=== PATIENT | male | born 1980 | race Caucasian/White ===

== ENCOUNTER 2018-07-25 14:08 | Inpatient (IN) | payer MEDICAID ==
[2018-07-25] MEDS ORDERED: SODIUM CHLORIDE 0.9% 500 ML 500 ML IV STA (14:41)
--- NOTE | 2018-07-25 14:47 | ED ---
General Adult HPI - General Source: patient, RN notes reviewed Mode of arrival: ambulatory Limitations: no limitations <Rafa Bass - Last Filed: 07/25/18 17:21> <Rafa Bingham - Last Filed: 07/25/18 19:56> - General Chief complaint: Chest Pain Stated complaint: Chest and back pain, SOB Time Seen by Provider: 07/25/18 14:10 - History of Present Illness Initial comments: This is a 38 her old male presents emergency Department complaining that he has been having chest pain however he points to the epigastric area. Patient states the pain is also in his back at about the kidney level bilaterally. Patient states when he lays her still does not have any pain but when he turns or twists the pain starts. Patient states his been ongoing for about a week but it's been worse since last evening. Patient denies any shortness of breath or diaphoretic episodes. Patient states for the last month he's been vomiting about 2 times every other day. Patient denies any diarrhea. Patient states he' s to be a little bit of a drinker but not to have a. Patient states she's quit for a while now. Patient states the last month she's lost 20 pounds 10 of which she lost the last week. Patient denies any fever chills per patient denies any medical problems. Patient denies smoking. (Rafa Bass) - Related Data Home Medications Medication Instructions Recorded Confirmed No Known Home Medications 07/25/18 07/25/18 Allergies Allergy/AdvReac Type Severity Reaction Status Date / Time Penicillins Allergy Rash/Hives Verified 07/25/18 15:00 Review of Systems ROS Other: All systems not noted in ROS Statement are negative. <Rafa Bass - Last Filed: 07/25/18 17:21> ROS Other: All systems not noted in ROS Statement are negative. <Rafa Bingham - Last Filed: 07/25/18 19:56> ROS Statement: Those systems with pertinent positive or pertinent negative responses have been documented in the HPI. Past Medical History Past Medical History: No Reported History History of Any Multi-Drug Resistant Organisms: None Reported Past Surgical History: No Surgical Hx Reported Past Psychological History: No Psychological Hx Reported Smoking Status: Never smoker Past Alcohol Use History: None Reported Past Drug Use History: None Reported <Rafa Bass - Last Filed: 07/25/18 17:21> General Exam Limitations: no limitations <Rafa Bass - Last Filed: 07/25/18 17:21> General appearance: alert, in no apparent distress, other (Pale) Head exam: Present: atraumatic, normocephalic, normal inspection Eye exam: Present: normal appearance, PERRL, EOMI. Absent: scleral icterus, conjunctival injection, periorbital swelling ENT exam: Present: normal exam, mucous membranes moist Neck exam: Present: normal inspection. Absent: tenderness, meningismus, lymphadenopathy Respiratory exam: Present: normal lung sounds bilaterally. Absent: respiratory distress, wheezes, rales, rhonchi, stridor Cardiovascular Exam: Present: regular rate, normal rhythm, normal heart sounds. Absent: systolic murmur, diastolic murmur, rubs, gallop, clicks GI/Abdominal exam: Present: soft, normal bowel sounds. Absent: distended, tenderness, guarding, rebound, rigid Extremities exam: Present: normal inspection, full ROM, normal capillary refill. Absent: tenderness, pedal edema, joint swelling, calf tenderness Back exam: Present: normal inspection Neurological exam: Present: alert, oriented X3, CN II-XII intact Psychiatric exam: Present: normal affect, normal mood Skin exam: Present: warm, dry, intact, normal color. Absent: rash <ConorgordonManikathleen Begum - Last Filed: 07/25/18 19:56> - General Exam Comments Initial Comments: GENERAL: Patient is patient looks a little cachectic. Patient is nontoxic and well- hydrated and is in mild distress. ENT: Neck is soft and supple. No significant lymphadenopathy is noted. Oropharynx is clear. Moist mucous membranes. Neck has full range of motion without eliciting any pain. EYES: The sclera were anicteric and conjunctiva were pink and moist. Extraocular movements were intact and pupils were equal round and reactive to light. Eyelids were unremarkable. PULMONARY: Unlabored respirations. Good breath sounds bilaterally. No audible rales rhonchi or wheezing was noted. CARDIOVASCULAR: There is a regular rate and rhythm without any murmurs gallops or rubs. ABDOMEN: Soft and nontender with normal bowel sounds. No palpable organomegaly was noted. There is no palpable pulsatile mass. SKIN: Skin is clear with no lesions or rashes and otherwise unremarkable. NEUROLOGIC: Patient is alert and oriented x3. Cranial nerves II through XII are grossly intact. Motor and sensory are also intact. Normal speech, volume and content. Symmetrical smile. MUSCULOSKELETAL: Normal extremities with adequate strength and full range of motion. No lower extremity swelling or edema. No calf tenderness. LYMPHATICS: No significant lymphadenopathy is noted PSYCHIATRIC: Normal psychiatric evaluation. (Rafa Bass) Course <Rafa Bass - Last Filed: 07/25/18 17:21> <Rafa Bingham - Last Filed: 07/25/18 19:56> Vital Signs 07/25/18 07/25/18 07/25/18 14:12 14:30 15:00 Temperature 98.1 F Pulse Rate 96 92 87 Respiratory 18 Rate Blood Pressure 146/89 140/84 138/76 O2 Sat by Pulse 100 100 100 Oximetry 07/25/18 07/25/18 07/25/18 15:30 16:00 16:30 Temperature Pulse Rate 85 90 86 Respiratory Rate Blood Pressure 124/76 123/77 120/75 O2 Sat by Pulse 100 99 100 Oximetry 07/25/18 07/25/18 07/25/18 17:00 17:30 18:00 Temperature Pulse Rate 91 98 95 Respiratory 18 Rate Blood Pressure 124/83 129/88 133/81 O2 Sat by Pulse 99 Oximetry 07/25/18 07/25/18 19:00 19:30 Temperature Pulse Rate 103 H 103 H Respiratory 15 16 Rate Blood Pressure 124/67 124/57 O2 Sat by Pulse 100 100 Oximetry - Reevaluation(s) Reevaluation #1: 07/25/18 19:55 Spoke with patient and family at length regarding findings, questions answered ( Rafa Bingham) Medical Decision Making - Lab Data Result diagrams: 07/25/18 14:30 07/25/18 14:30 <Rafa Bass - Last Filed: 07/25/18 17:21> - Lab Data Result diagrams: 07/25/18 14:30 07/25/18 14:30 - Radiology Data Radiology results: report reviewed (Ultrasound reveals a bladder is negative, CT abdomen pelvis is negative), image reviewed <Rafa Bingham - Last Filed: 07/25/18 19:56> - Medical Decision Making EKG shows normal sinus rhythm at 91 bpm AK interval 140 QRS is 88 QT interval 422 QTC is 519. Patient's EKG shows no ST segment elevation or depression but extremely peaked T waves. Patient is denying any actual chest pain points to his epigastric area causes chest. I spoke with Dr. Moy about the patient's lab work and he wanted the patient to have a [place] which was already in progress he wanted the patient to get 2 A of bicarb and a bicarb drip with 3 A of bicarbonate and D5 at 150 an hour I did that as well. Patient also was to get an amp of calcium chloride and a CT abdomen pelvis. Dr. Bingham will take over the care of this patient at 5 PM (Rafa Bass) 38 male to the ER for evaluation. Patient be admitted for persistent nephrology evaluation monitoring of electrolytes, fluid resuscitation and electrode replacement. (Rafa Bingham) - Lab Data Lab Results 07/25/18 07/25/18 07/25/18 Range/Units 14:30 14:30 14:30 WBC (3.8-10.6) k/uL RBC (4.30-5.90) m/uL Hgb (13.0-17.5) gm/dL Hct (39.0-53.0) % MCV (80.0-100.0) fL MCH (25.0-35.0) pg MCHC (31.0-37.0) g/dL RDW (11.5-15.5) % Plt Count (150-450) k/uL Neutrophils % % Lymphocytes % % Monocytes % % Eosinophils % % Basophils % % Neutrophils # (1.3-7.7) k/uL Lymphocytes # (1.0-4.8) k/uL Monocytes # (0-1.0) k/uL Eosinophils # (0-0.7) k/uL Basophils # (0-0.2) k/uL PT (9.0-12.0) sec INR (<1.2) APTT (22.0-30.0) sec VBG pH (7.31-7.41) VBG pCO2 (37-51) mmHg VBG HCO3 (24-28) mmol/L Sodium 138 (137-145) mmol/L Potassium 3.7 3.7 (3.5-5.1) mmol/L Chloride 102 (98-107) mmol/L Carbon Dioxide 7 L* (22-30) mmol/L Anion Gap 29 mmol/L BUN 163 H* (9-20) mg/dL Creatinine 23.65 H* (0.66-1.25) mg/dL Est GFR (CKD-EPI)AfAm 2 (>60 ml/min/1.73 sqM) Est GFR (CKD-EPI)NonAf 2 (>60 ml/min/1.73 sqM) Glucose 188 H (74-99) mg/dL Plasma Lactic Acid Sai (0.7-2.0) mmol/L Calcium 4.1 L* (8.4-10.2) mg/dL Ionized Calcium Hans (4.5-5.3) mg/dL Phosphorus (2.5-4.5) mg/dL Magnesium (1.6-2.3) mg/dL Total Bilirubin 0.8 (0.2-1.3) mg/dL AST 20 (17-59) U/L ALT 24 (21-72) U/L Alkaline Phosphatase 100 (38-126) U/L Ammonia (<30) umol/L Total Creatine Kinase 1245 H* (55-170) U/L CK-MB (CK-2) 5.6 H (0.0-2.4) ng/mL CK-MB (CK-2) Rel Index 0.4 Troponin I <0.012 (0.000-0.034) ng/mL Total Protein 7.3 (6.3-8.2) g/dL Albumin 4.1 (3.5-5.0) g/dL Amylase 82 (30-110) U/L Lipase 414 H (23-300) U/L TSH (0.465-4.680) mIU/L Free T4 (0.78-2.19) ng/dL Urine Color Urine Appearance (Clear) Urine pH (5.0-8.0) Ur Specific [place] (1.001-1.035) Urine Protein (Negative) Urine Glucose (UA) (Negative) Urine Ketones (Negative) Urine Blood (Negative) Urine Nitrite (Negative) Urine Bilirubin (Negative) Urine Urobilinogen (<2.0) mg/dL Ur Leukocyte Esterase (Negative) Urine RBC (0-5) /hpf Urine WBC (0-5) /hpf Amorphous Sediment (None) /hpf Urine Opiates Screen (NotDetected) Ur Oxycodone Screen (NotDetected) Urine Methadone Screen (NotDetected) Ur Propoxyphene Screen (NotDetected) Acetaminophen ug/mL Ur Barbiturates Screen (NotDetected) U Tricyclic Antidepress (NotDetected) Ur Phencyclidine Scrn (NotDetected) Ur Amphetamines Screen (NotDetected) U Methamphetamines Scrn (NotDetected) U Benzodiazepines Scrn (NotDetected) Urine Cocaine Screen (NotDetected) U Marijuana (THC) Screen (NotDetected) 07/25/18 07/25/18 07/25/18 Range/Units 14:30 14:30 14:30 WBC 10.9 H (3.8-10.6) k/uL RBC 2.37 L (4.30-5.90) m/uL Hgb 7.4 L (13.0-17.5) gm/dL Hct 22.1 L (39.0-53.0) % MCV 93.4 (80.0-100.0) fL MCH 31.4 (25.0-35.0) pg MCHC 33.6 (31.0-37.0) g/dL RDW 14.6 (11.5-15.5) % Plt Count 209 (150-450) k/uL Neutrophils % 90 % Lymphocytes % 4 % Monocytes % 5 % Eosinophils % 0 % Basophils % 0 % Neutrophils # 9.8 H (1.3-7.7) k/uL Lymphocytes # 0.5 L (1.0-4.8) k/uL Monocytes # 0.5 (0-1.0) k/uL Eosinophils # 0.0 (0-0.7) k/uL Basophils # 0.0 (0-0.2) k/uL PT 12.0 (9.0-12.0) sec INR 1.2 H (<1.2) APTT 31.7 H (22.0-30.0) sec VBG pH (7.31-7.41) VBG pCO2 (37-51) mmHg VBG HCO3 (24-28) mmol/L Sodium (137-145) mmol/L Potassium (3.5-5.1) mmol/L Chloride (98-107) mmol/L Carbon Dioxide (22-30) mmol/L Anion Gap mmol/L BUN (9-20) mg/dL Creatinine (0.66-1.25) mg/dL Est GFR (CKD-EPI)AfAm (>60 ml/min/1.73 sqM) Est GFR (CKD-EPI)NonAf (>60 ml/min/1.73 sqM) Glucose (74-99) mg/dL Plasma Lactic Acid Sai 1.0 (0.7-2.0) mmol/L Calcium (8.4-10.2) mg/dL Ionized Calcium Hans (4.5-5.3) mg/dL Phosphorus (2.5-4.5) mg/dL Magnesium (1.6-2.3) mg/dL Total Bilirubin (0.2-1.3) mg/dL AST (17-59) U/L ALT (21-72) U/L Alkaline Phosphatase (38-126) U/L Ammonia (<30) umol/L Total Creatine Kinase (55-170) U/L CK-MB (CK-2) (0.0-2.4) ng/mL CK-MB (CK-2) Rel Index Troponin I (0.000-0.034) ng/mL Total Protein (6.3-8.2) g/dL Albumin (3.5-5.0) g/dL Amylase (30-110) U/L Lipase (23-300) U/L TSH (0.465-4.680) mIU/L Free T4 (0.78-2.19) ng/dL Urine Color Urine Appearance (Clear) Urine pH (5.0-8.0) Ur Specific [place] (1.001-1.035) Urine Protein (Negative) Urine Glucose (UA) (Negative) Urine Ketones (Negative) Urine Blood (Negative) Urine Nitrite (Negative) Urine Bilirubin (Negative) Urine Urobilinogen (<2.0) mg/dL Ur Leukocyte Esterase (Negative) Urine RBC (0-5) /hpf Urine WBC (0-5) /hpf Amorphous Sediment (None) /hpf Urine Opiates Screen (NotDetected) Ur Oxycodone Screen (NotDetected) Urine Methadone Screen (NotDetected) Ur Propoxyphene Screen (NotDetected) Acetaminophen ug/mL Ur Barbiturates Screen (NotDetected) U Tricyclic Antidepress (NotDetected) Ur Phencyclidine Scrn (NotDetected) Ur Amphetamines Screen (NotDetected) U Methamphetamines Scrn (NotDetected) U Benzodiazepines Scrn (NotDetected) Urine Cocaine Screen (NotDetected) U Marijuana (THC) Screen (NotDetected) 07/25/18 07/25/18 07/25/18 Range/Units 17:19 17:59 17:59 WBC (3.8-10.6) k/uL RBC (4.30-5.90) m/uL Hgb (13.0-17.5) gm/dL Hct (39.0-53.0) % MCV (80.0-100.0) fL MCH (25.0-35.0) pg MCHC (31.0-37.0) g/dL RDW (11.5-15.5) % Plt Count (150-450) k/uL Neutrophils % % Lymphocytes % % Monocytes % % Eosinophils % % Basophils % % Neutrophils # (1.3-7.7) k/uL Lymphocytes # (1.0-4.8) k/uL Monocytes # (0-1.0) k/uL Eosinophils # (0-0.7) k/uL Basophils # (0-0.2) k/uL PT (9.0-12.0) sec INR (<1.2) APTT (22.0-30.0) sec VBG pH 7.12 L* (7.31-7.41) VBG pCO2 20 L (37-51) mmHg VBG HCO3 6 L* (24-28) mmol/L Sodium (137-145) mmol/L Potassium (3.5-5.1) mmol/L Chloride (98-107) mmol/L Carbon Dioxide (22-30) mmol/L Anion Gap mmol/L BUN (9-20) mg/dL Creatinine (0.66-1.25) mg/dL Est GFR (CKD-EPI)AfAm (>60 ml/min/1.73 sqM) Est GFR (CKD-EPI)NonAf (>60 ml/min/1.73 sqM) Glucose (74-99) mg/dL Plasma Lactic Acid Sai (0.7-2.0) mmol/L Calcium (8.4-10.2) mg/dL Ionized Calcium Hans 2.3 L* (4.5-5.3) mg/dL Phosphorus 15.4 H* (2.5-4.5) mg/dL Magnesium 1.4 L (1.6-2.3) mg/dL Total Bilirubin (0.2-1.3) mg/dL AST (17-59) U/L ALT (21-72) U/L Alkaline Phosphatase (38-126) U/L Ammonia (<30) umol/L Total Creatine Kinase (55-170) U/L CK-MB (CK-2) (0.0-2.4) ng/mL CK-MB (CK-2) Rel Index Troponin I (0.000-0.034) ng/mL Total Protein (6.3-8.2) g/dL Albumin (3.5-5.0) g/dL Amylase (30-110) U/L Lipase (23-300) U/L TSH 0.188 L (0.465-4.680) mIU/L Free T4 1.11 (0.78-2.19) ng/dL Urine Color Light Yellow Urine Appearance Cloudy (Clear) Urine pH 5.5 (5.0-8.0) Ur Specific [place] 1.007 (1.001-1.035) Urine Protein 2+ H (Negative) Urine Glucose (UA) Negative (Negative) Urine Ketones Negative (Negative) Urine Blood Moderate H (Negative) Urine Nitrite Negative (Negative) Urine Bilirubin Negative (Negative) Urine Urobilinogen <2.0 (<2.0) mg/dL Ur Leukocyte Esterase Negative (Negative) Urine RBC 3 (0-5) /hpf Urine WBC 2 (0-5) /hpf Amorphous Sediment Occasional H (None) /hpf Urine Opiates Screen (NotDetected) Ur Oxycodone Screen (NotDetected) Urine Methadone Screen (NotDetected) Ur Propoxyphene Screen (NotDetected) Acetaminophen <10.0 ug/mL Ur Barbiturates Screen (NotDetected) U Tricyclic Antidepress (NotDetected) Ur Phencyclidine Scrn (NotDetected) Ur Amphetamines Screen (NotDetected) U Methamphetamines Scrn (NotDetected) U Benzodiazepines Scrn (NotDetected) Urine Cocaine Screen (NotDetected) U Marijuana (THC) Screen (NotDetected) 07/25/18 07/25/18 Range/Units 17:59 18:00 WBC (3.8-10.6) k/uL RBC (4.30-5.90) m/uL Hgb (13.0-17.5) gm/dL Hct (39.0-53.0) % MCV (80.0-100.0) fL MCH (25.0-35.0) pg MCHC (31.0-37.0) g/dL RDW (11.5-15.5) % Plt Count (150-450) k/uL Neutrophils % % Lymphocytes % % Monocytes % % Eosinophils % % Basophils % % Neutrophils # (1.3-7.7) k/uL Lymphocytes # (1.0-4.8) k/uL Monocytes # (0-1.0) k/uL Eosinophils # (0-0.7) k/uL Basophils # (0-0.2) k/uL PT (9.0-12.0) sec INR (<1.2) APTT (22.0-30.0) sec VBG pH (7.31-7.41) VBG pCO2 (37-51) mmHg VBG HCO3 (24-28) mmol/L Sodium (137-145) mmol/L Potassium (3.5-5.1) mmol/L Chloride (98-107) mmol/L Carbon Dioxide (22-30) mmol/L Anion Gap mmol/L BUN (9-20) mg/dL Creatinine (0.66-1.25) mg/dL Est GFR (CKD-EPI)AfAm (>60 ml/min/1.73 sqM) Est GFR (CKD-EPI)NonAf (>60 ml/min/1.73 sqM) Glucose (74-99) mg/dL Plasma Lactic Acid Sai (0.7-2.0) mmol/L Calcium (8.4-10.2) mg/dL Ionized Calcium Hans (4.5-5.3) mg/dL Phosphorus (2.5-4.5) mg/dL Magnesium (1.6-2.3) mg/dL Total Bilirubin (0.2-1.3) mg/dL AST (17-59) U/L ALT (21-72) U/L Alkaline Phosphatase (38-126) U/L Ammonia 11 (<30) umol/L Total Creatine Kinase (55-170) U/L CK-MB (CK-2) (0.0-2.4) ng/mL CK-MB (CK-2) Rel Index Troponin I (0.000-0.034) ng/mL Total Protein (6.3-8.2) g/dL Albumin (3.5-5.0) g/dL Amylase (30-110) U/L Lipase (23-300) U/L TSH (0.465-4.680) mIU/L Free T4 (0.78-2.19) ng/dL Urine Color Urine Appearance (Clear) Urine pH (5.0-8.0) Ur Specific [place] (1.001-1.035) Urine Protein (Negative) Urine Glucose (UA) (Negative) Urine Ketones (Negative) Urine Blood (Negative) Urine Nitrite (Negative) Urine Bilirubin (Negative) Urine Urobilinogen (<2.0) mg/dL Ur Leukocyte Esterase (Negative) Urine RBC (0-5) /hpf Urine WBC (0-5) /hpf Amorphous Sediment (None) /hpf Urine Opiates Screen Not Detected (NotDetected) Ur Oxycodone Screen Not Detected (NotDetected) Urine Methadone Screen Not Detected (NotDetected) Ur Propoxyphene Screen Not Detected (NotDetected) Acetaminophen ug/mL Ur Barbiturates Screen Not Detected (NotDetected) U Tricyclic Antidepress Not Detected (NotDetected) Ur Phencyclidine Scrn Not Detected (NotDetected) Ur Amphetamines Screen Not Detected (NotDetected) U Methamphetamines Scrn Not Detected (NotDetected) U Benzodiazepines Scrn Not Detected (NotDetected) Urine Cocaine Screen Not Detected (NotDetected) U Marijuana (THC) Screen Not Detected (NotDetected) Critical Care Time Critical Care Time: Yes Total Critical Care Time: 45 <Rafa Bass - Last Filed: 07/25/18 17:21> Disposition <Rafa Bass - Last Filed: 07/25/18 17:21> Is patient prescribed a controlled substance at d/c from ED?: No <Rafa Bingham - Last Filed: 07/25/18 19:56> Clinical Impression: Anemia, Acute renal failure, Hypocalcemia, Uremia, Metabolic acidosis, Hyperphosphatemia, Lactic acidosis, Rhabdomyolysis Disposition: ADMITTED IP TO THIS HOSP Condition: Serious Referrals: None,Stated [Primary Care Provider] - 1-2 days
--- NOTE | 2018-07-25 16:21 | XR ---
EXAMINATION TYPE: XR chest 2V DATE OF EXAM: 07/25/2018 COMPARISON: NONE HISTORY: Abdominal pain, nausea and vomiting and shortness of breath TECHNIQUE: Frontal and lateral views of the chest are obtained. FINDINGS: There is no focal air space opacity, pleural effusion, or pneumothorax seen. The cardiac silhouette size is within normal limits. The osseous structures are intact. Prominent lung volumes are noted. There are overlying cardiac leads. IMPRESSION: No acute cardiopulmonary process.
--- NOTE | 2018-07-25 16:22 | XR ---
EXAMINATION TYPE: XR KUB DATE OF EXAM: 07/25/2018 CLINICAL DATA: 38-year-old male with abdominal pain, [facility] COMPARISON: None FINDINGS: No evidence for free intraperitoneal air. No dilated small bowel or air-fluid levels. Scattered air and stool seen throughout the colon extendi ng distally into the rectum. Scattered mild stool. No suspicious calcifications identified. IMPRESSION: 1. Mild stool burden. 2.No evidence of bowel obstruction or free intraperitoneal air.
[2018-07-25 16:23] LABS: Basophils % (A) 0 %; Eosinophils % (A) 0 %; HCT 22.1 % (39.0-53.0); HGB 7.4 gm/dL (13.0-17.5); Lymphocytes # (A) 0.5 k/uL (1.0-4.8); Lymphocytes % (A) 4 %; MCH 31.4 pg (25.0-35.0); MCHC 33.6 g/dL (31.0-37.0); MCV 93.4 fL (80.0-100.0); Mean Platelet Volume 9.1; Monocytes # (A) 0.5 k/uL (0-1.0); Monocytes % (A) 5 %; Neutrophils # (A) 9.8 k/uL (1.3-7.7); Neutrophils % (A) 90 %; Platelet Count 209 k/uL (150-450); RBC 2.37 m/uL (4.30-5.90); RDW 14.6 % (11.5-15.5); WBC 10.9 k/uL (3.8-10.6)
[2018-07-25 16:29] LABS: Albumin 4.1 g/dL (3.5-5.0); Potassium 3.7 mmol/L (3.5-5.1); Total Bilirubin 0.8 mg/dL (0.2-1.3); Total Protein 7.3 g/dL (6.3-8.2)
[2018-07-25 16:43] LABS: Creatine Kinase MB 5.6 ng/mL (0.0-2.4); Troponin I <0.012 ng/mL (0.000-0.034)
[2018-07-25 16:50] LABS: Calcium 4.1 mg/dL (8.4-10.2); Creatine Kinase 1245 U/L (55-170)
[2018-07-25 17:00] LABS: INR 1.2 (<1.2); Partial Thromboplastin Time 31.7 sec (22.0-30.0)
[2018-07-25] MEDS ORDERED: SODIUM CHLORIDE 0.9% 1,000 ML IV ONE (17:12)
[2018-07-25] MEDS ORDERED: SODIUM BICARB 8.4% 50 ML SYR (1 MEQ/ML) IV ONE (17:12)
[2018-07-25] MEDS ORDERED: SODIUM CHLORIDE 0.9% 500 ML 500 ML IV ONE (17:12)
[2018-07-25] MEDS ORDERED: CALCIUM CHLORIDE 1,000 MG in SODIUM CHLORIDE 0.9% 100 ML IVPB STA (17:13)
[2018-07-25 17:50] LABS: Amorphous Sediment,Urine Occasional /hpf; Appearance,Urine Cloudy (Clear); Bilirubin,Urine Negative (Negative); Blood,Urine Moderate (Negative); Color,Urine Light Yellow; Glucose,Urine (UA) Negative (Negative); Ketones,Urine Negative (Negative); Leukocyte Esterase,Urine Negative (Negative); Nitrite,Urine Negative (Negative); PH, Urine 5.5 (5.0-8.0); Protein,Urine 2+ (Negative); RBC,Urine 3 /hpf (0-5); Specific Gravity,Urine 1.007 (1.001-1.035); Urobilinogen,Urine <2.0 mg/dL (<2.0); WBC,Urine 2 /hpf (0-5)
[2018-07-25 18:17] LABS: VBG PH 7.12 (7.31-7.41)
[2018-07-25 18:18] LABS: Ionized Calcium 2.3 mg/dL (4.5-5.3)
[2018-07-25 18:22] LABS: Amphetamine Screen,Urine Not Detected (NotDetected); Barbiturate Screen,Urine Not Detected (NotDetected); Benzodiazepines Screen,Urine Not Detected (NotDetected); Cocaine Screen,Urine Not Detected (NotDetected); Methadone Screen, Urine Not Detected (NotDetected); Opiate Screen,Urine Not Detected (NotDetected); Oxycodone Screen, Urine Not Detected (NotDetected); Phencyclidine Screen,Urine Not Detected (NotDetected); Tricyclic Antidepressant,Urine Not Detected (NotDetected); Urn Cannabinoid Scrn Not Detected (NotDetected)
--- NOTE | 2018-07-25 18:41 | US ---
EXAMINATION TYPE: US renals and bladder DATE OF EXAM: 07/25/2018 COMPARISON: NONE CLINICAL HISTORY: Pain. Acute renal failure. EXAM MEASUREMENTS: Right Kidney: 6.6 x 2.8 x 1.9 cm Left Kidney: 5.5 x 3.3 x 2.5 cm Right Kidney: Atrophic borders not well defined. Diffusely hyperechoic renal parenchyma noted. Left Kidney: Limited visualization atrophic borders not well defined. Diffusely hyperechoic renal par enchyma. Bladder: Catheter in place. Bilateral Jets seen: No There is no evidence for hydronephrosis at this point in time. No nephrolithiasis is seen. No patricia s are identified. IMPRESSION: 1. Negative for obstructive uropathy. 2. Medical renal disease.
[2018-07-25 18:43] LABS: Acetaminophen <10.0 ug/mL; Magnesium 1.4 mg/dL (1.6-2.3)
[2018-07-25 18:52] LABS: Phosphorus 15.4 mg/dL (2.5-4.5)
--- NOTE | 2018-07-25 19:21 | CT ---
EXAMINATION TYPE: CT abdomen pelvis wo con DATE OF EXAM: 07/25/2018 COMPARISON: None HISTORY: Chest, back and abdominal pain with nausea and vomiting with diaphoresis. CT DLP: 262.6 mGycm Automated exposure control for dose reduction was used. TECHNIQUE: Helical acquisition of images was performed from the lung bases through the pelvis. FINDINGS: Within the limitations of noncontrast CT the following observations are made. LUNG BASES: No significant abnormality is appreciated. LIVER/GB: No significant liver abnormality is appreciated. Mild gallbladder distention noted; no othe r biliary findings. PANCREAS: No significant abnormality is seen. SPLEEN: No significant abnormality is seen. ADRENALS: No significant abnormality is seen. KIDNEYS: The kidneys are atrophic. FREE AIR: No free air is visualized. There is no peritoneal fluid. RETROPERITONEAL ADENOPATHY: None visualized REPRODUCTIVE ORGANS: No significant abnormality is seen URINARY BLADDER: No significant abnormality is seen.: Catheter noted. PELVIC ADENOPATHY: None visualized. OSSEOUS STRUCTURES: No significant abnormality is seen. BOWEL: No acute findings. Specifically, the stomach is not dilated; there is no bowel obstruction; no pneumatosis or pneumoperitoneum; no excessive colonic stool. IMPRESSION: NO ACUTE PROCESS, CT WITHOUT CONTRAST.
[2018-07-25 19:49] LABS: T4, Free (Free Thyroxine) 1.11 ng/dL (0.78-2.19)
[2018-07-25] MEDS ORDERED: NALOXONE 0.4 MG/ML 1 ML VIAL IV PRN (19:56)
[2018-07-25] MEDS ORDERED: MORPHINE SULFATE 4 MG/ML SYRINGE IV PRN (19:56)
[2018-07-25] MEDS: DEXTROSE 5% IN WATER 1,000 ML with SODIUM BICARB (1 MEQ/ML) 150 ML IV SCH (20:15)
[2018-07-25 21:19] LABS: Glucose,Whole Blood 112 mg/dL (75-99)
[2018-07-25 23:05] LABS: Basophils % (A) 0 %; Eosinophils % (A) 1 %; Lymphocytes # (A) 0.4 k/uL (1.0-4.8); Lymphocytes % (A) 5 %; MCH 32.3 pg (25.0-35.0); MCHC 34.6 g/dL (31.0-37.0); MCV 93.5 fL (80.0-100.0); Mean Platelet Volume 8.6; Monocytes # (A) 0.5 k/uL (0-1.0); Monocytes % (A) 6 %; Neutrophils # (A) 7.1 k/uL (1.3-7.7); Neutrophils % (A) 88 %; Platelet Count 178 k/uL (150-450); RBC 1.77 m/uL (4.30-5.90); RDW 14.3 % (11.5-15.5); WBC 8.1 k/uL (3.8-10.6)
[2018-07-25 23:08] LABS: HCT 16.6 % (39.0-53.0); HGB 5.7 gm/dL (13.0-17.5)
[2018-07-25 23:16] LABS: Hemoglobin A1C 5.4 % (4.0-6.0)
[2018-07-25 23:22] LABS: ALT 17 U/L (21-72); AST 17 U/L (17-59); Albumin 3.4 g/dL (3.5-5.0); Alkaline Phosphatase 76 U/L (38-126); Anion Gap 25 mmol/L; Carbon Dioxide 10 mmol/L (22-30); Chloride 107 mmol/L (98-107); Glucose 119 mg/dL (74-99); Magnesium 1.2 mg/dL (1.6-2.3); Sodium 142 mmol/L (137-145); Total Bilirubin 0.8 mg/dL (0.2-1.3); Total Protein 5.9 g/dL (6.3-8.2)
[2018-07-25 23:28] VITALS: BMI 20.7
[2018-07-25 23:48] LABS: Erythrocyte Sedimentation Rate 83 mm/hr (0-15)
[2018-07-25 23:59] LABS: Potassium 2.7 mmol/L (3.5-5.1)
[2018-07-26] LABS: Blood Urea Nitrogen 155 mg/dL (9-20); Calcium 4.8 mg/dL (8.4-10.2); Phosphorus 12.9 mg/dL (2.5-4.5)
[2018-07-26 00:01] LABS: Salicylate <1.0 mg/dL
[2018-07-26] MEDS ORDERED: POTASSIUM BICARBONATE/CIT AC 20 MEQ TABLET.EFF PO ONE ×6 (00:11→21:29)
[2018-07-26] MEDS: POTASSIUM CHLORIDE 10 MEQ in WATER FOR INJECTION 1 100ML.BAG IVPB SCH ×2 (00:53→02:04)
[2018-07-26] MEDS ORDERED: POTASSIUM CHLORIDE 10 MEQ in WATER FOR INJECTION 1 100ML.BAG IVPB SCH (01:00)
[2018-07-26] MEDS: DEXTROSE 5% IN WATER 1,000 ML with SODIUM BICARB (1 MEQ/ML) 150 ML IV SCH ×3 (04:11→17:02)
[2018-07-26] MEDS ORDERED: CALCIUM GLUCONATE 2,000 MG in SODIUM CHLORIDE 0.9% 100 ML IVPB ONE (07:51)
[2018-07-26 08:00] LABS: Basophils % (A) 0 %; Eosinophils # (A) 0.1 k/uL (0-0.7); Eosinophils % (A) 2 %; HCT 22.9 % (39.0-53.0); Lymphocytes # (A) 0.8 k/uL (1.0-4.8); Lymphocytes % (A) 12 %; MCH 31.1 pg (25.0-35.0); MCHC 34.4 g/dL (31.0-37.0); MCV 90.6 fL (80.0-100.0); Mean Platelet Volume 8.3; Monocytes # (A) 0.4 k/uL (0-1.0); Monocytes % (A) 6 %; Neutrophils # (A) 5.1 k/uL (1.3-7.7); Neutrophils % (A) 78 %; Platelet Count 150 k/uL (150-450); RBC 2.53 m/uL (4.30-5.90); RDW 14.5 % (11.5-15.5); WBC 6.5 k/uL (3.8-10.6)
[2018-07-26 08:01] LABS: Albumin 3.2 g/dL (3.5-5.0); Magnesium 1.2 mg/dL (1.6-2.3); Total Bilirubin 1.1 mg/dL (0.2-1.3); Total Protein 5.6 g/dL (6.3-8.2)
[2018-07-26 08:05] LABS: HGB 7.9 gm/dL (13.0-17.5)
[2018-07-26 08:12] LABS: Potassium 2.7 mmol/L (3.5-5.1)
[2018-07-26 08:14] LABS: Phosphorus 9.5 mg/dL (2.5-4.5)
[2018-07-26] MEDS: MAGNESIUM SULFATE-D5W PMX 1 GM in DEXTROSE/WATER 1 100ML.BAG IVPB SCH ×3 (08:48→10:59)
[2018-07-26] MEDS ORDERED: PANTOPRAZOLE 40 MG/10 ML VIAL IV SCH (09:00)
--- NOTE | 2018-07-26 10:37 | P.NPCON ---
History of Present Illness - Reason for Consult acute renal failure - History of Present Illness Reason for consultation: Acute kidney injury History of present illness: Patient is a 38-year-old male seen in renal consultation for acute kidney injury. Unknown as to what hisannual function is. Patient has not seen a physician in his life. Patient presented to the hospital due to generalized weakness along with poor oral intake. Patient states he's been urinating less over the last few days. On admission his creatinine was 23.65 and was extremely acidotic with bicarb level of 7. Patient did receive 2 L of normal saline bolus and was started on isotonic sodium bicarbonate drip. Creatinine today is 20.51. Patient continues to feel weak. Hemoglobin was 5.7 yesterday for which she received 2 units of blood transfusion. Hemoglobin 7.9 today. Denies any melena or hematochezia. No hematuria or dysuria. Urine output has been about 50 mL an hour. Potassium is low at 2.7 this morning. Magnesium is also low at 1.2. He denies use of NSAIDs. Denies family history of renal disease. No history of diabetes. Renal ultrasound revealed small sized kidneys. No history of hepatitis or HIV. Vital signs are stable. General: The patient appeared well nourished and normally developed. HEENT: Head exam is unremarkable. Neck is without jugular venous distension. LUNGS: Lungs are clear to auscultation and percussion. Breath sounds decreased. HEART: Rate and Rhythm are regular. First and second heart sounds normal. No murmurs, rubs or gallops. ABDOMEN: Abdominal exam reveals normal bowel sounds. Non-tender and non- distended. No evidence of peritonitis. EXTREMITITES: No clubbing, cyanosis, or edema. Past Medical History Past Medical History: No Reported History History of Any Multi-Drug Resistant Organisms: None Reported Past Surgical History: No Surgical Hx Reported Past Anesthesia/Blood Transfusion Reactions: No Reported Reaction Past Psychological History: No Psychological Hx Reported Smoking Status: Never smoker Past Alcohol Use History: None Reported Past Drug Use History: None Reported Medications and Allergies Home Medications Medication Instructions Recorded Confirmed Type No Known Home Medications 07/25/18 07/25/18 History Allergies Allergy/AdvReac Type Severity Reaction Status Date / Time Penicillins Allergy Rash/Hives Verified 07/25/18 15:00 Physical Exam Vitals: Vital Signs Temp Pulse Resp BP Pulse Ox 07/26/18 10:00 80 15 104/57 07/26/18 09:30 84 22 104/57 07/26/18 09:00 72 15 107/60 07/26/18 08:00 98.7 F 103/62 07/26/18 07:30 75 14 103/62 99 07/26/18 07:04 98.9 F 78 18 103/62 98 07/26/18 07:00 75 14 105/61 98 07/26/18 06:30 80 14 108/61 98 07/26/18 06:00 78 13 107/62 99 07/26/18 05:48 98.9 F 81 16 106/63 98 07/26/18 05:30 75 14 110/63 98 07/26/18 05:18 98.8 F 78 14 110/63 100 07/26/18 05:08 98.9 F 81 16 104/62 100 07/26/18 05:00 98.9 F 75 16 105/62 99 07/26/18 04:31 98.8 F 77 16 102/64 100 07/26/18 04:30 75 18 102/64 100 07/26/18 04:00 98.8 F 77 16 105/63 100 07/26/18 03:30 80 15 110/67 99 07/26/18 03:12 98.4 F 92 24 110/67 99 07/26/18 03:00 86 17 102/54 99 07/26/18 02:42 98.3 F 86 18 102/61 98 07/26/18 02:32 98.2 F 82 20 102/56 99 07/26/18 02:30 87 20 106/61 99 07/26/18 02:00 89 22 109/61 99 07/26/18 01:00 89 25 H 95/52 99 07/26/18 00:30 83 16 95/52 97 07/26/18 00:00 98.9 F 77 12 108/61 97 07/25/18 23:30 79 14 108/61 98 07/25/18 23:00 82 16 111/68 98 07/25/18 22:30 82 15 111/68 98 07/25/18 22:00 82 19 99 07/25/18 21:30 99.1 F 89 24 138/72 99 07/25/18 20:30 97 18 118/69 100 07/25/18 20:00 90 17 125/68 07/25/18 19:30 103 H 16 124/57 100 07/25/18 19:00 103 H 15 124/67 100 07/25/18 18:00 95 133/81 07/25/18 17:30 98 129/88 07/25/18 17:00 91 18 124/83 99 07/25/18 16:30 86 120/75 100 07/25/18 16:00 90 123/77 99 07/25/18 15:30 85 124/76 100 07/25/18 15:00 87 138/76 100 07/25/18 14:30 92 140/84 100 07/25/18 14:12 98.1 F 96 18 146/89 100 Intake and Output 07/25/18 07/26/18 07/26/18 22:59 06:59 14:59 Intake Total 285 2450 460 Output Total 1075 350 Balance -790 2100 460 Intake: IV 105 2020 150 Dextrose 5% in Water 1, 105 1200 150 000 ml @ 150 mls/hr IV . Q7H40M CALE with Sodium Bicarb (1 Meq/ml) 150 ml Rx#:[id number] PRBC 620 Potassium Chloride 10 meq 200 In Water For Injection 1 100ml.bag @ 100 mls/hr IVPB Q1H CALE Rx#: [id number] Oral 180 120 Blood Product 310 310 Rc As-1 Unit 310 [id number] Rc Cpda-1 Unit 0 310 [id number] Output: Urine 1075 350 Uretheral (Montemayor) 400 Other: Voiding Method Indwelling Catheter Indwelling Catheter Weight 51.5 kg Results - Lab Results Most recent lab results Calcium 4.0 mg/dL (8.4-10.2) L* 07/26/18 07:30 Phosphorus 9.5 mg/dL (2.5-4.5) H* 07/26/18 07:30 Magnesium 1.2 mg/dL (1.6-2.3) L 07/26/18 07:30 07/26/18 07:30 07/26/18 07:30 Assessment and Plan Plan: Assessment: 1. Acute kidney injury versus chronic kidney disease. Unknown baseline renal function. Creatinine was 23.6 at admission and is 20.5 and today. This is most likely end-stage renal disease as patient's kidneys are extremely small in size. Underlying etiology is likely to be glomerulonephritis as he does have 2 + proteinuria on UA. 2. Hypokalemia secondary to hypomagnesemia. 3. Hypomagnesemia from poor oral intake. 4. Acute blood loss anemia with hemoglobin of 5.7 status post 2 units of blood transfusion. Hemoglobin 7.9 today. No signs of active bleeding. 5. Metabolic acidosis secondary to acute kidney injury. 6. Hypocalcemia secondary to acute kidney injury. 7. Hyperparathyroidism. This is likely secondary in nature from underlying chronic kidney disease. 8. Hyperphosphatemia secondary to acute kidney injury. Plan: Maintain bicarb drip for the next 24 hours. Replace potassium. 60 mg once today. Replace magnesium. 3 g IV today. Add Aranesp. Due to severe renal impairment and signs of uremia, I will initiate renal replacement therapy. Consults vascular surgery for permacath placement. First treatment of hemodialysis today and second treatment tomorrow. Check serologic workup. Patient will not be a candidate for kidney biopsy due to small size kidneys. Patient will be at a high risk for bleeding complications. Additionally, due to significant chronicity he will not be a candidate for treatment with chemotherapy and immunosuppressive medications. 2 g of IV calcium today. Add calcitriol 1 g daily. Add PhosLo with meals. Thank you for the consultation. I will continue to follow the patient with you during his hospital stay.
[2018-07-26] MEDS ORDERED: POTASSIUM CHLORIDE 10 MEQ in WATER FOR INJECTION 1 100ML.BAG IVPB STA (10:44)
[2018-07-26] MEDS ORDERED: DARBEPOETIN ALFA 40 MCG/0.4 ML SYRINGE SQ SCH (11:00)
--- NOTE | 2018-07-26 11:39 | P.CNPUL ---
History of Present Illness Consult date: 07/26/18 Requesting physician: Jamir Wooten Chief complaint: Acute kidney injury, nausea and vomiting, profound anemia History of present illness: This is a 38-year-old white male patient who has not seen a physician in a long time, and does not have any medical history, presents to the emergency department on 07/25/2018 for evaluation of nonspecific abdominal pain, back pain on the right side, nausea and vomiting, weakness. He states his symptoms started about a week ago, prior to that he had upper respiratory infection which had resolved. He denies any diarrhea. Patient states he lost 40 pounds in the last month, 10 of which was in the last week. He denied any fever or chills, no chest pain, difficulty breathing, no cough or congestion. No history of smoking, or drinking. No history of drug abuse. His spouse is at the bedside, and reports that her and her young daughter had them GI symptoms about 3 weeks ago with nausea, vomiting and diarrhea lasting about 24 hours which had resolved. Flat plate of the abdomen did not show any evidence of bowel obstruction or free intraperitoneal air, chest x-ray was negative, the CT abdomen and pelvis did not show any acute process. Renal ultrasound was negative for obstructive uropathy, showed atrophic right kidney. Lab work was significant for multiple abnormalities including profound anemia with a hemoglobin of 5.7, potassium of 2.7, CO2 of 10, BUN of 155, creatinine of 22.05 , calcium of 4.8, phosphorus of 12.9, magnesium of 1.2, total CK of 1245, lipase of 414, amylase was within normal limits at 82, TSH was 0.188, free T4 was within normal limits at 1.11, PTH was 1028.7. Urinalysis showed 2+ protein , moderate blood, negative for signs of infection, urine osmolality was 282, random potassium was 11, urine specific gravity was 1.007. Urine drug screen was negative, salicylate level was less than 1, acetaminophen level was less than 10. Venous blood gas showed pH of 7.12, pCO2 of 20, and bicarb of 6, consistent with profound metabolic acidosis. Patient was given IV fluid boluses in the emergency department, he was given bicarb replacements, and currently his D5W with 3 A of bicarbonate at a rate of 150 ML per hour, his calcium is being supplemented, and patient has received 3 g of calcium gluconate , and multiple replacements for hypokalemia. She received a total of 3 L of normal saline IV fluid boluses. He was admitted to the intensive care unit, and has received 2 units of packed red blood cells. Patient denied any signs of GI bleeding at home, no hematemesis, no black tarry stools, no hematochezia. He denied any NSAID use, no recent travel, no hospitalization, no antibiotic use. He denied any polyuria, denied any polydipsia. This morning she was seen in the intensive care unit, he is resting comfortably in bed, he is pale but in no acute distress. Room air pulse ox is 99%, he is hemodynamically stable, he is in sinus mechanism with a controlled rate, he is afebrile. His is at the bedside, and was able to provide some information, patient has been trying to get established with a primary care provider, and has recently been accepted by Dr. Apple, but has not seen him in the office. Denies any shortness of breath or chest pain. No abdominal pain this morning, no back pain, patient is urinating, he did have one episode of diarrhea this morning, no further nausea or vomiting. Currently he remains nothing by mouth, case was discussed with nephrology, who felt that patient probably had underlying chronic kidney disease was undetected with sudden acute worsening. And the plans are to proceed with the temporary hemodialysis catheter placement and initiation of hemodialysis. Review of Systems All systems: negative Constitutional: Reports lethargy, Reports weakness, Reports weight loss, Denies chills, Denies fever Eyes: denies blurred vision, denies pain Ears, nose, mouth and throat: Denies headache, Denies sore throat Cardiovascular: Denies chest pain, Denies shortness of breath Respiratory: Denies cough Gastrointestinal: Reports nausea, Reports vomiting, Denies abdominal pain, Denies diarrhea Musculoskeletal: Denies myalgias Integumentary: Denies pruritus, Denies rash Neurological: Denies numbness, Denies weakness Psychiatric: Denies anxiety, Denies depression Endocrine: Denies fatigue, Denies weight change Past Medical History Past Medical History: No Reported History History of Any Multi-Drug Resistant Organisms: None Reported Past Surgical History: No Surgical Hx Reported Past Anesthesia/Blood Transfusion Reactions: No Reported Reaction Past Psychological History: No Psychological Hx Reported Smoking Status: Never smoker Past Alcohol Use History: None Reported Past Drug Use History: None Reported Medications and Allergies Home Medications Medication Instructions Recorded Confirmed Type No Known Home Medications 07/25/18 07/25/18 History Allergies Allergy/AdvReac Type Severity Reaction Status Date / Time Penicillins Allergy Rash/Hives Verified 07/25/18 15:00 Physical Exam Vitals: Vital Signs Temp Pulse Resp BP Pulse Ox 07/26/18 11:00 80 11 L 110/65 99 07/26/18 10:30 82 14 110/65 07/26/18 10:00 80 15 104/57 07/26/18 09:30 84 22 104/57 07/26/18 09:00 72 15 107/60 07/26/18 08:00 98.7 F 103/62 07/26/18 07:30 75 14 103/62 99 07/26/18 07:04 98.9 F 78 18 103/62 98 07/26/18 07:00 75 14 105/61 98 07/26/18 06:30 80 14 108/61 98 07/26/18 06:00 78 13 107/62 99 07/26/18 05:48 98.9 F 81 16 106/63 98 07/26/18 05:30 75 14 110/63 98 07/26/18 05:18 98.8 F 78 14 110/63 100 07/26/18 05:08 98.9 F 81 16 104/62 100 07/26/18 05:00 98.9 F 75 16 105/62 99 07/26/18 04:31 98.8 F 77 16 102/64 100 07/26/18 04:30 75 18 102/64 100 07/26/18 04:00 98.8 F 77 16 105/63 100 07/26/18 03:30 80 15 110/67 99 07/26/18 03:12 98.4 F 92 24 110/67 99 07/26/18 03:00 86 17 102/54 99 07/26/18 02:42 98.3 F 86 18 102/61 98 07/26/18 02:32 98.2 F 82 20 102/56 99 07/26/18 02:30 87 20 106/61 99 07/26/18 02:00 89 22 109/61 99 07/26/18 01:00 89 25 H 95/52 99 07/26/18 00:30 83 16 95/52 97 07/26/18 00:00 98.9 F 77 12 108/61 97 07/25/18 23:30 79 14 108/61 98 07/25/18 23:00 82 16 111/68 98 07/25/18 22:30 82 15 111/68 98 07/25/18 22:00 82 19 99 07/25/18 21:30 99.1 F 89 24 138/72 99 07/25/18 20:30 97 18 118/69 100 07/25/18 20:00 90 17 125/68 07/25/18 19:30 103 H 16 124/57 100 07/25/18 19:00 103 H 15 124/67 100 07/25/18 18:00 95 133/81 07/25/18 17:30 98 129/88 07/25/18 17:00 91 18 124/83 99 07/25/18 16:30 86 120/75 100 07/25/18 16:00 90 123/77 99 07/25/18 15:30 85 124/76 100 07/25/18 15:00 87 138/76 100 07/25/18 14:30 92 140/84 100 07/25/18 14:12 98.1 F 96 18 146/89 100 Intake and Output 07/25/18 07/26/18 07/26/18 22:59 06:59 14:59 Intake Total 285 2450 1510 Output Total 1075 350 400 Balance -790 2100 1110 Intake: IV 105 2020 1050 Dextrose 5% in Water 1, 105 1200 650 000 ml @ 150 mls/hr IV . Q7H40M CALE with Sodium Bicarb (1 Meq/ml) 150 ml Rx#:[id number] Mag 300 PRBC 620 Potassium Chloride 10 meq 200 100 In Water For Injection 1 100ml.bag @ 100 mls/hr IVPB Q1H CALE Rx#: [id number] Oral 180 120 150 Blood Product 310 310 Rc As-1 Unit 310 [id number] Rc Cpda-1 Unit 0 310 [id number] Output: Urine 1075 350 400 Uretheral ([place]emayor) 400 Other: Voiding Method Indwelling Catheter Indwelling Catheter Weight 51.5 kg GENERAL EXAM: Alert, thin, 38-year-old pale white male comfortable in no apparent distress. HEAD: Normocephalic/atraumatic. EYES: Normal reaction of pupils, equal size. Conjunctiva pink, sclera white. NOSE: Clear with pink turbinates. THROAT: No erythema or exudates. NECK: No masses, no JVD, no thyroid enlargement, no adenopathy. CHEST: No chest wall deformity. Symmetrical expansion. LUNGS: Equal air entry with no crackles, wheeze, rhonchi or dullness. CVS: Regular rate and rhythm, normal S1 and S2, no gallops, no murmurs, no rubs ABDOMEN: Soft, nontender. No hepatosplenomegaly, normal bowel sounds, no guarding or rigidity. EXTREMITIES: No clubbing, no edema, no cyanosis, 2+ pulses and upper and lower extremities. MUSCULOSKELETAL: Muscle strength and tone normal. SPINE: No scoliosis or deformity SKIN: No rashes CENTRAL NERVOUS SYSTEM: Alert and oriented -3. No focal deficits, tone is normal in all 4 extremities. PSYCHIATRIC: Alert and oriented -3. Appropriate affect. Intact judgment and insight. Results - Laboratory Findings CBC and BMP: 07/26/18 07:30 07/26/18 07:30 PT/INR, D-dimer PT 12.0 sec (9.0-12.0) 07/25/18 14:30 INR 1.2 (<1.2) H 07/25/18 14:30 Abnormal lab findings: Abnormal Labs 07/25/18 07/25/18 07/25/18 14:30 14:30 14:30 WBC 10.9 H RBC 2.37 L Hgb 7.4 L Hct 22.1 L Neutrophils # 9.8 H Lymphocytes # 0.5 L ESR INR APTT VBG pH VBG pCO2 VBG HCO3 Potassium Carbon Dioxide 7 L* BUN 163 H* Creatinine 23.65 H* Glucose 188 H POC Glucose (mg/dL) Osmolality Calcium 4.1 L* Ionized Calcium Hans Phosphorus Magnesium ALT Creatine Kinase Total Creatine Kinase 1245 H* CK-MB (CK-2) 5.6 H Total Protein Albumin Lipase 414 H TSH PTH Intact Urine Protein Urine Blood Amorphous Sediment Crossmatch 07/25/18 07/25/18 07/25/18 14:30 14:30 17:19 WBC RBC Hgb Hct Neutrophils # Lymphocytes # ESR INR 1.2 H APTT 31.7 H VBG pH VBG pCO2 VBG HCO3 Potassium Carbon Dioxide BUN Creatinine Glucose POC Glucose (mg/dL) Osmolality Calcium Ionized Calcium Hans Phosphorus Magnesium ALT Creatine Kinase Total Creatine Kinase CK-MB (CK-2) Total Protein Albumin Lipase TSH PTH Intact Urine Protein 2+ H Urine Blood Moderate H Amorphous Sediment Occasional H Crossmatch See Detail 07/25/18 07/25/18 07/25/18 17:59 17:59 17:59 WBC RBC Hgb Hct Neutrophils # Lymphocytes # ESR INR APTT VBG pH 7.12 L* VBG pCO2 20 L VBG HCO3 6 L* Potassium Carbon Dioxide BUN Creatinine Glucose POC Glucose (mg/dL) Osmolality Calcium Ionized Calcium Hans 2.3 L* Phosphorus 15.4 H* Magnesium 1.4 L ALT Creatine Kinase Total Creatine Kinase CK-MB (CK-2) Total Protein Albumin Lipase TSH 0.188 L PTH Intact 1028.7 H Urine Protein Urine Blood Amorphous Sediment Crossmatch 07/25/18 07/25/18 07/25/18 21:08 22:30 22:30 WBC RBC 1.77 L Hgb 5.7 L* D Hct 16.6 L* Neutrophils # Lymphocytes # 0.4 L ESR 83 H INR APTT VBG pH VBG pCO2 VBG HCO3 Potassium 2.7 L* Carbon Dioxide 10 L BUN 155 H* Creatinine 22.05 H* Glucose 119 H POC Glucose (mg/dL) 112 H Osmolality 338 H* Calcium 4.8 L* Ionized Calcium Hans Phosphorus 12.9 H* Magnesium 1.2 L ALT 17 L Creatine Kinase Total Creatine Kinase CK-MB (CK-2) Total Protein 5.9 L Albumin 3.4 L Lipase TSH PTH Intact Urine Protein Urine Blood Amorphous Sediment Crossmatch 07/26/18 07/26/18 07:30 07:30 WBC RBC 2.53 L Hgb 7.9 L D Hct 22.9 L Neutrophils # Lymphocytes # 0.8 L ESR INR APTT VBG pH VBG pCO2 VBG HCO3 Potassium 2.7 L* Carbon Dioxide 18 L BUN 150 H* Creatinine 20.51 H* Glucose 114 H POC Glucose (mg/dL) Osmolality Calcium 4.0 L* Ionized Calcium Hans Phosphorus 9.5 H* Magnesium 1.2 L ALT Creatine Kinase 920 H Total Creatine Kinase CK-MB (CK-2) Total Protein 5.6 L Albumin 3.2 L Lipase TSH PTH Intact Urine Protein Urine Blood Amorphous Sediment Crossmatch - Diagnostic Findings Chest x-ray: report reviewed, image reviewed Additional studies: Flat plate of the abdomen, CT of abdomen and pelvis, EKG, renal ultrasound chest x-ray have all been reviewed Assessment and Plan Plan: Assessment: #1. Acute kidney injury with suspected underlying chronic kidney disease, with an unknown baseline renal function #2. Multiple electrolyte abnormalities including hypokalemia, hypomagnesemia, hypocalcemia #3. Acute versus chronic anemia, requiring transfusion with 2 units of packed red blood cells, hemoglobin of 5.7 on admission, with no clear history of GI blood loss #4. Metabolic acidosis secondary to acute kidney injury #5. Secondary hyperparathyroidism likely related to chronic kidney disease #6. Hyperphosphatemia #7. Nausea and vomiting, and weakness on presentation #8. Abdominal pain, elevated lipase suggesting acute pancreatitis #9. Lifetime nonsmoker, no history of EtOH use Plan: Case was discussed with nephrology, and the findings were described above. For now patient is hemodynamically stable, he received 2 units of packed red blood cells, there has been no further nausea or vomiting, did have a one episode of diarrhea this morning, will obtain stool for culture and C. diff. And July with bicarb infusion per nephrology, the plan is to proceed with placement of temporary hemodialysis catheter and initiation of hemodialysis. Patient will remain in the intensive care unit today, continue to monitor, denies any difficulty breathing, chest pain, denies any specific complaints this morning. I performed a history & physical examination of the patient and discussed their management with my nurse practitioner, Raven Kim. I reviewed the nurse practitioner's note and agree with the documented findings and plan of care. Lung sounds are clear. The findings and the impression was discussed with the patient. I attest to the documentation by the nurse practitioner. Time with Patient: Greater than 30
[2018-07-26] MEDS ORDERED: POTASSIUM CHLORIDE 10 MEQ in WATER FOR INJECTION 1 100ML.BAG IVPB ONE (12:00)
[2018-07-26 12:49] LABS: Appearance,Urine Cloudy (Clear); Bacteria,Urine Moderate /hpf; Bilirubin,Urine Negative (Negative); Blood,Urine Moderate (Negative); Color,Urine Light Yellow; Glucose,Urine (UA) 1+ (Negative); Ketones,Urine Negative (Negative); Leukocyte Esterase,Urine Large (Negative); Nitrite,Urine Negative (Negative); PH, Urine 6.5 (5.0-8.0); Protein,Urine 1+ (Negative); RBC,Urine 13 /hpf (0-5); Specific Gravity,Urine 1.006 (1.001-1.035); Squamous Epithelial Cell,Urine 1 /hpf (0-4); Urobilinogen,Urine <2.0 mg/dL (<2.0); WBC,Urine >182 /hpf (0-5)
[2018-07-26] MEDS: CALCIUM ACETATE 667 MG CAP PO SCH ×2 (13:04→18:08)
[2018-07-26] MEDS ORDERED: ceFAZolin IN SWFI 2 GM/20 ML SYRINGE IVP ONE (16:00)
--- NOTE | 2018-07-26 16:00 | P.HPIM ---
History of Present Illness H&P Date: 07/26/18 38 years old male who has not been seen by Dr. Apple at this moment with no significant past medical history comes to the ER on 07/25 with nonspecific abdominal pain, back pain, nausea vomiting, generalized fatigue for the past 4 weeks. According to the patient was doing well until he started having some cough and congestion which was initially thought to be a viral infection resolved by itself, he was not seen by any provider since he was a child. He does document significant weight loss of 40 pounds sincefor the past 2 year that wa sintentional with loss of 10 pounds in the past week. Patient was noticing right flank pain for the past year and was seen at urgent care. A chest x-ray was done which did not report any pneumonia. No further workup was done. Patient does not take any Tylenol or ibuprofen at home. He is not on any medication except for vitamin C. On evaluation in the ER, labs suggestive hemoglobin of 5.7, potassium 2.7 carbon dioxide 10, B UN 155 creatinine 22, , glucose 119, serum osmolarity 338, calcium 4.8, phosphorus 12.9 , magnesium 1.2 episodes to 89, urinalysis was obtained that suggested 182 WBCs , positive leukocyte esterase, few normal urine osmolarity of 282, increase in 1477-related acetaminophen levels were normal. Patient received 2 units of packed RBCs and 3 g of calcium, magnesium 3 g supplementation, 100 mEq of potassium, sodium bicarb. Her peak labs suggest improvement in the hemoglobin to 7.9 potassium is still low at 2.7, creatinine is high at 20 , calcium is 4, phosphorus 9.5. EKG suggests peaked T waves with prolongation of QT interval. CT abdomen was done which suggested atrophic kidneys no other abnormality seen on evaluation patient denies any headache at 3 history of kidney problems except for grandfather who had kidney disease at a young age with history of glomerular nephritis. Patient denies any history of hepatitis or HIV. He denies any history of rash except for psoriasic. No history of frothy or cola colored urine. Energy has seen the patient well recommendation on bicarb drip for the next 24 hours. Patient will be initiated on dialysis starting today after placement of the dialysis catheter. Review of Systems Constitutional: Denies chills, Denies fever, endorses lethargy, endorses malaise, Denies poor appetite, endorses weakness, endorses weight loss Eyes: denies decreased vision, denies diplopia, denies discharge, denies pain Ears: deny: decreased hearing Ears, nose, mouth and throat: Denies dental pain, Denies headache, Denies nasal discharge, Denies nose pain Cardiovascular: Denies chest pain, Denies decreased exercise tolerance, Denies edema, Denies high blood pressure, Denies irregular heart beat, Denies palpitations, Denies paroxysmal nocturnal dyspnea, Denies rapid heart beat, Denies shortness of breath Respiratory: Denies congestion, Denies cough, Denies cough with sputum, Denies dyspnea, Denies home oxygen, Denies wheezing Gastrointestinal: Endorses abdominal pain, Denies change in bowel habits, Denies coffee ground emesis, Denies early satiety, Denies excessive gas, endorses heartburn, Denies hematemesis, Denies hematochezia, Denies loss of appetite, endorses biliary vomiting and nausea Genitourinary: Denies dysuria, Denies flank pain, Denies kidney stones, Denies menorrhagia, Denies urgency, Denies urinary frequency Musculoskeletal: Denies gait dysfunction, Denies limitation of motion, Denies morning stiffness, Denies muscle cramps Integumentary: Denies rash, Denies wounds, Denies brittle nails, Denies change in hair/nails, Denies darkening of skin Neurological: Denies balance difficulties, Denies change in speech, Denies double vision, Denies gait dysfunction, Denies loss of vision, Denies motor disturbance, Denies numbness, Denies paralysis, Denies paresthesias, Denies seizures Psychiatric: Denies anxiety, Denies depression Endocrine: Denies excessive sweating, Denies excessive thirst, Denies high blood sugars, Denies palpitations Hematologic/Lymphatic: Denies easy bruising, Denies lymphadenopathy Past Medical History Past Medical History: No Reported History History of Any Multi-Drug Resistant Organisms: None Reported Past Surgical History: No Surgical Hx Reported Past Anesthesia/Blood Transfusion Reactions: No Reported Reaction Past Psychological History: No Psychological Hx Reported Smoking Status: Never smoker Past Alcohol Use History: None Reported Past Drug Use History: None Reported - Past Family History Father Additional Family Medical History / Comment(s): Grandfather had glomerulonephritis and was on dialysis by the age of 35 no other significant past medical history in the family Medications and Allergies Home Medications Medication Instructions Recorded Confirmed Type No Known Home Medications 07/25/18 07/25/18 History Allergies Allergy/AdvReac Type Severity Reaction Status Date / Time Penicillins Allergy Rash/Hives Verified 07/25/18 15:00 Physical Exam Vitals: Vital Signs Temp Pulse Resp BP Pulse Ox 07/26/18 14:00 76 14 113/66 98 07/26/18 13:30 78 15 113/66 98 07/26/18 13:00 84 12 116/71 98 07/26/18 12:30 80 13 116/71 99 07/26/18 12:00 98.0 F 77 11 L 113/70 98 07/26/18 11:30 77 10 L 113/70 99 07/26/18 11:00 80 11 L 110/65 99 07/26/18 10:30 82 14 110/65 07/26/18 10:00 80 15 104/57 07/26/18 09:30 84 22 104/57 07/26/18 09:00 72 15 107/60 07/26/18 08:00 98.7 F 103/62 07/26/18 07:30 75 14 103/62 99 07/26/18 07:04 98.9 F 78 18 103/62 98 07/26/18 07:00 75 14 105/61 98 07/26/18 06:30 80 14 108/61 98 07/26/18 06:00 78 13 107/62 99 07/26/18 05:48 98.9 F 81 16 106/63 98 07/26/18 05:30 75 14 110/63 98 07/26/18 05:18 98.8 F 78 14 110/63 100 07/26/18 05:08 98.9 F 81 16 104/62 100 07/26/18 05:00 98.9 F 75 16 105/62 99 07/26/18 04:31 98.8 F 77 16 102/64 100 07/26/18 04:30 75 18 102/64 100 07/26/18 04:00 98.8 F 77 16 105/63 100 07/26/18 03:30 80 15 110/67 99 07/26/18 03:12 98.4 F 92 24 110/67 99 07/26/18 03:00 86 17 102/54 99 07/26/18 02:42 98.3 F 86 18 102/61 98 07/26/18 02:32 98.2 F 82 20 102/56 99 07/26/18 02:30 87 20 106/61 99 07/26/18 02:00 89 22 109/61 99 07/26/18 01:00 89 25 H 95/52 99 07/26/18 00:30 83 16 95/52 97 07/26/18 00:00 98.9 F 77 12 108/61 97 07/25/18 23:30 79 14 108/61 98 07/25/18 23:00 82 16 111/68 98 07/25/18 22:30 82 15 111/68 98 07/25/18 22:00 82 19 99 07/25/18 21:30 99.1 F 89 24 138/72 99 07/25/18 20:30 97 18 118/69 100 07/25/18 20:00 90 17 125/68 07/25/18 19:30 103 H 16 124/57 100 07/25/18 19:00 103 H 15 124/67 100 07/25/18 18:00 95 133/81 07/25/18 17:30 98 129/88 07/25/18 17:00 91 18 124/83 99 07/25/18 16:30 86 120/75 100 07/25/18 16:00 90 123/77 99 07/25/18 15:30 85 124/76 100 Intake and Output 07/26/18 07/26/18 07/26/18 06:59 14:59 22:59 Intake Total 2450 1810 Output Total 350 550 Balance 2100 1260 Intake: IV 2019 1350 Dextrose 5% in Water 1, 1200 850 000 ml @ 150 mls/hr IV . Q7H40M CALE with Sodium Bicarb (1 Meq/ml) 150 ml Rx#:[id number] Mag 300 PRBC 620 Potassium Chloride 10 meq 200 200 In Water For Injection 1 100ml.bag @ 100 mls/hr IVPB Q1H CALE Rx#: [id number] Oral 120 150 Blood Product 310 310 Rc As-1 Unit 310 [id number] Rc Cpda-1 Unit 0 310 [id number] Output: Urine 350 550 Other: Voiding Method Indwelling Catheter Indwelling Catheter Weight 51.5 kg 51.5 kg - Constitutional General appearance: cooperative, no acute distress, thin - EENT Eyes: anicteric sclerae, PERRLA, normal appearance ENT: hearing grossly normal - Neck Neck: no lymphadenopathy, normal ROM, no other, no rigidity, no stridor, no thyromegaly - Respiratory Respiratory: bilateral: CTA, negative: diminished, dullness, rales, rhonchi - Cardiovascular Rhythm: regular Heart sounds: normal: S1, S2 Abnormal Heart Sounds: no systolic murmur, no diastolic murmur, no rub, no S3 Gallop, no S4 Gallop, no click - Gastrointestinal General gastrointestinal: normal bowel sounds, soft, non tender - Integumentary Integumentary: no rash some acne on the shoulder and elbow but no rashes seen - Neurologic Neurologic: CNII-XII intact - Musculoskeletal Musculoskeletal: gait normal, strength equal bilaterally - Psychiatric Psychiatric: A&O x's 3, appropriate affect Results CBC & Chem 7: 07/26/18 07:30 07/26/18 07:30 Labs: Abnormal Lab Results - Last 24 Hours (Table) 07/25/18 07/25/18 07/25/18 Range/Units 14:30 14:30 14:30 WBC 10.9 H (3.8-10.6) k/uL RBC 2.37 L (4.30-5.90) m/uL Hgb 7.4 L (13.0-17.5) gm/dL Hct 22.1 L (39.0-53.0) % Neutrophils # 9.8 H (1.3-7.7) k/uL Lymphocytes # 0.5 L (1.0-4.8) k/uL ESR (0-15) mm/hr INR (<1.2) APTT (22.0-30.0) sec VBG pH (7.31-7.41) VBG pCO2 (37-51) mmHg VBG HCO3 (24-28) mmol/L Potassium (3.5-5.1) mmol/L Carbon Dioxide 7 L* (22-30) mmol/L BUN 163 H* (9-20) mg/dL Creatinine 23.65 H* (0.66-1.25) mg/dL Glucose 188 H (74-99) mg/dL POC Glucose (mg/dL) (75-99) mg/dL Osmolality (280-301) mosm/kg Calcium 4.1 L* (8.4-10.2) mg/dL Ionized Calcium Hans (4.5-5.3) mg/dL Phosphorus (2.5-4.5) mg/dL Magnesium (1.6-2.3) mg/dL ALT (21-72) U/L Creatine Kinase (55-170) U/L Total Creatine Kinase 1245 H* (55-170) U/L CK-MB (CK-2) 5.6 H (0.0-2.4) ng/mL Total Protein (6.3-8.2) g/dL Albumin (3.5-5.0) g/dL Lipase 414 H (23-300) U/L TSH (0.465-4.680) mIU/L PTH Intact (14.0-72.0) pg/mL Urine Protein (Negative) Urine Glucose (UA) (Negative) Urine Blood (Negative) Ur Leukocyte Esterase (Negative) Urine RBC (0-5) /hpf Urine WBC (0-5) /hpf Urine WBC Clumps (None) /hpf Amorphous Sediment (None) /hpf Urine Bacteria (None) /hpf U Random Total Protein (<12) mg/dL Crossmatch 07/25/18 07/25/18 07/25/18 Range/Units 14:30 14:30 17:19 WBC (3.8-10.6) k/uL RBC (4.30-5.90) m/uL Hgb (13.0-17.5) gm/dL Hct (39.0-53.0) % Neutrophils # (1.3-7.7) k/uL Lymphocytes # (1.0-4.8) k/uL ESR (0-15) mm/hr INR 1.2 H (<1.2) APTT 31.7 H (22.0-30.0) sec VBG pH (7.31-7.41) VBG pCO2 (37-51) mmHg VBG HCO3 (24-28) mmol/L Potassium (3.5-5.1) mmol/L Carbon Dioxide (22-30) mmol/L BUN (9-20) mg/dL Creatinine (0.66-1.25) mg/dL Glucose (74-99) mg/dL POC Glucose (mg/dL) (75-99) mg/dL Osmolality (280-301) mosm/kg Calcium (8.4-10.2) mg/dL Ionized Calcium Hans (4.5-5.3) mg/dL Phosphorus (2.5-4.5) mg/dL Magnesium (1.6-2.3) mg/dL ALT (21-72) U/L Creatine Kinase (55-170) U/L Total Creatine Kinase (55-170) U/L CK-MB (CK-2) (0.0-2.4) ng/mL Total Protein (6.3-8.2) g/dL Albumin (3.5-5.0) g/dL Lipase (23-300) U/L TSH (0.465-4.680) mIU/L PTH Intact (14.0-72.0) pg/mL Urine Protein 2+ H (Negative) Urine Glucose (UA) (Negative) Urine Blood Moderate H (Negative) Ur Leukocyte Esterase (Negative) Urine RBC (0-5) /hpf Urine WBC (0-5) /hpf Urine WBC Clumps (None) /hpf Amorphous Sediment Occasional H (None) /hpf Urine Bacteria (None) /hpf U Random Total Protein (<12) mg/dL Crossmatch See Detail 07/25/18 07/25/18 07/25/18 Range/Units 17:59 17:59 17:59 WBC (3.8-10.6) k/uL RBC (4.30-5.90) m/uL Hgb (13.0-17.5) gm/dL Hct (39.0-53.0) % Neutrophils # (1.3-7.7) k/uL Lymphocytes # (1.0-4.8) k/uL ESR (0-15) mm/hr INR (<1.2) APTT (22.0-30.0) sec VBG pH 7.12 L* (7.31-7.41) VBG pCO2 20 L (37-51) mmHg VBG HCO3 6 L* (24-28) mmol/L Potassium (3.5-5.1) mmol/L Carbon Dioxide (22-30) mmol/L BUN (9-20) mg/dL Creatinine (0.66-1.25) mg/dL Glucose (74-99) mg/dL POC Glucose (mg/dL) (75-99) mg/dL Osmolality (280-301) mosm/kg Calcium (8.4-10.2) mg/dL Ionized Calcium Hans 2.3 L* (4.5-5.3) mg/dL Phosphorus 15.4 H* (2.5-4.5) mg/dL Magnesium 1.4 L (1.6-2.3) mg/dL ALT (21-72) U/L Creatine Kinase (55-170) U/L Total Creatine Kinase (55-170) U/L CK-MB (CK-2) (0.0-2.4) ng/mL Total Protein (6.3-8.2) g/dL Albumin (3.5-5.0) g/dL Lipase (23-300) U/L TSH 0.188 L (0.465-4.680) mIU/L PTH Intact 1028.7 H (14.0-72.0) pg/mL Urine Protein (Negative) Urine Glucose (UA) (Negative) Urine Blood (Negative) Ur Leukocyte Esterase (Negative) Urine RBC (0-5) /hpf Urine WBC (0-5) /hpf Urine WBC Clumps (None) /hpf Amorphous Sediment (None) /hpf Urine Bacteria (None) /hpf U Random Total Protein (<12) mg/dL Crossmatch 07/25/18 07/25/18 07/25/18 Range/Units 21:08 22:30 22:30 WBC (3.8-10.6) k/uL RBC 1.77 L (4.30-5.90) m/uL Hgb 5.7 L* D (13.0-17.5) gm/dL Hct 16.6 L* (39.0-53.0) % Neutrophils # (1.3-7.7) k/uL Lymphocytes # 0.4 L (1.0-4.8) k/uL ESR 83 H (0-15) mm/hr INR (<1.2) APTT (22.0-30.0) sec VBG pH (7.31-7.41) VBG pCO2 (37-51) mmHg VBG HCO3 (24-28) mmol/L Potassium 2.7 L* (3.5-5.1) mmol/L Carbon Dioxide 10 L (22-30) mmol/L BUN 155 H* (9-20) mg/dL Creatinine 22.05 H* (0.66-1.25) mg/dL Glucose 119 H (74-99) mg/dL POC Glucose (mg/dL) 112 H (75-99) mg/dL Osmolality 338 H* (280-301) mosm/kg Calcium 4.8 L* (8.4-10.2) mg/dL Ionized Calcium Hans (4.5-5.3) mg/dL Phosphorus 12.9 H* (2.5-4.5) mg/dL Magnesium 1.2 L (1.6-2.3) mg/dL ALT 17 L (21-72) U/L Creatine Kinase (55-170) U/L Total Creatine Kinase (55-170) U/L CK-MB (CK-2) (0.0-2.4) ng/mL Total Protein 5.9 L (6.3-8.2) g/dL Albumin 3.4 L (3.5-5.0) g/dL Lipase (23-300) U/L TSH (0.465-4.680) mIU/L PTH Intact (14.0-72.0) pg/mL Urine Protein (Negative) Urine Glucose (UA) (Negative) Urine Blood (Negative) Ur Leukocyte Esterase (Negative) Urine RBC (0-5) /hpf Urine WBC (0-5) /hpf Urine WBC Clumps (None) /hpf Amorphous Sediment (None) /hpf Urine Bacteria (None) /hpf U Random Total Protein (<12) mg/dL Crossmatch 07/26/18 07/26/18 07/26/18 Range/Units 07:30 07:30 10:50 WBC (3.8-10.6) k/uL RBC 2.53 L (4.30-5.90) m/uL Hgb 7.9 L D (13.0-17.5) gm/dL Hct 22.9 L (39.0-53.0) % Neutrophils # (1.3-7.7) k/uL Lymphocytes # 0.8 L (1.0-4.8) k/uL ESR (0-15) mm/hr INR (<1.2) APTT (22.0-30.0) sec VBG pH (7.31-7.41) VBG pCO2 (37-51) mmHg VBG HCO3 (24-28) mmol/L Potassium 2.7 L* (3.5-5.1) mmol/L Carbon Dioxide 18 L (22-30) mmol/L BUN 150 H* (9-20) mg/dL Creatinine 20.51 H* (0.66-1.25) mg/dL Glucose 114 H (74-99) mg/dL POC Glucose (mg/dL) (75-99) mg/dL Osmolality (280-301) mosm/kg Calcium 4.0 L* (8.4-10.2) mg/dL Ionized Calcium Hans (4.5-5.3) mg/dL Phosphorus 9.5 H* (2.5-4.5) mg/dL Magnesium 1.2 L (1.6-2.3) mg/dL ALT (21-72) U/L Creatine Kinase 920 H (55-170) U/L Total Creatine Kinase (55-170) U/L CK-MB (CK-2) (0.0-2.4) ng/mL Total Protein 5.6 L (6.3-8.2) g/dL Albumin 3.2 L (3.5-5.0) g/dL Lipase (23-300) U/L TSH (0.465-4.680) mIU/L PTH Intact (14.0-72.0) pg/mL Urine Protein 1+ H (Negative) Urine Glucose (UA) 1+ H (Negative) Urine Blood Moderate H (Negative) Ur Leukocyte Esterase Large H (Negative) Urine RBC 13 H (0-5) /hpf Urine WBC >182 H (0-5) /hpf Urine WBC Clumps Moderate H (None) /hpf Amorphous Sediment (None) /hpf Urine Bacteria Moderate H (None) /hpf U Random Total Protein (<12) mg/dL Crossmatch 07/26/18 Range/Units 10:50 WBC (3.8-10.6) k/uL RBC (4.30-5.90) m/uL Hgb (13.0-17.5) gm/dL Hct (39.0-53.0) % Neutrophils # (1.3-7.7) k/uL Lymphocytes # (1.0-4.8) k/uL ESR (0-15) mm/hr INR (<1.2) APTT (22.0-30.0) sec VBG pH (7.31-7.41) VBG pCO2 (37-51) mmHg VBG HCO3 (24-28) mmol/L Potassium (3.5-5.1) mmol/L Carbon Dioxide (22-30) mmol/L BUN (9-20) mg/dL Creatinine (0.66-1.25) mg/dL Glucose (74-99) mg/dL POC Glucose (mg/dL) (75-99) mg/dL Osmolality (280-301) mosm/kg Calcium (8.4-10.2) mg/dL Ionized Calcium Hans (4.5-5.3) mg/dL Phosphorus (2.5-4.5) mg/dL Magnesium (1.6-2.3) mg/dL ALT (21-72) U/L Creatine Kinase (55-170) U/L Total Creatine Kinase (55-170) U/L CK-MB (CK-2) (0.0-2.4) ng/mL Total Protein (6.3-8.2) g/dL Albumin (3.5-5.0) g/dL Lipase (23-300) U/L TSH (0.465-4.680) mIU/L PTH Intact (14.0-72.0) pg/mL Urine Protein (Negative) Urine Glucose (UA) (Negative) Urine Blood (Negative) Ur Leukocyte Esterase (Negative) Urine RBC (0-5) /hpf Urine WBC (0-5) /hpf Urine WBC Clumps (None) /hpf Amorphous Sediment (None) /hpf Urine Bacteria (None) /hpf U Random Total Protein 87 H (<12) mg/dL Crossmatch Thrombosis Risk Factor Assmnt - DVT/VTE Prophylaxis DVT/VTE Prophylaxis: Low risk, early ambulation encouraged - Choose All That Apply Any of the Below Risk Factors Present?: No Other Risk Factors: No Other congenital or acquired thrombophilia - If yes, enter type in comment: No Thrombosis Risk Factor Assessment Level: Very Low Risk Assessment and Plan Plan: #1 acute abdominal pain secondary to acute worsening of chronic kidney disease. No baseline available. Unknown etiology. Unknown history of hepatitis or HIV. Does have h/o glomerulonephritis in grandfather. We will order connective tissue disease panel included TORRES, C3, C4,c ANCA and P ANCA , hepatitis panel, HIV. Anti GBM antibodies ordered. Biopsy could not be performed due to patient's size of kidneys on the CT abdomen. Patient to initiated dialysis today. No history of frothy urine or hematuria given. Immunofixation and urine protein electrophoresis ordered. Urine protein is low and is not in nephrotic range patient is not swallowing on examination unlikely to be nephrotic syndrome . Patient may have lupus nephritis though renal biopsy could not be done due to atrophic nature of kidneyus on CT . Patient does not provide any history of hematuria or proteinuria. Random protein in the urine is 87 the patient's serum protein is also low, other differential includes Alport syndrome and IgA nephropathy based on patient's age. #2 hypokalemia with EKG changes of QT prolongation. Repeat EKG. 60 mEq of potassium given today. Repeat potassium pending #3 hypomagnesemia, status post repletion #4 anemia likely secondary to chronic kidney disease no acute blood loss. Status post 2 units of PRBCs. Repeat CBC tomorrow #5 hypocalcemia secondary to acute kidney injury status. #6 hyperparathyroidism secondary to chronic kidney disease status. On calcitriol 1 g daily #7 hypophosphatemia on PhosLo with meals repeat labs tomorrow #8 acute metabolic acidosis secondary to acute kidney injury continue bicarb for the next 24 hours #9 DVT prophylaxis with SCDs patient is a low risk #10 code status full code #11 UTI was initiated on cefazolin patient does have a ALLERGY reaction to ampicillin and was less than 2 years ago in the form of hives. Since there is least cross-reactivity between the 2 will monitor the patient on cefazolin Disposition needs daily dialysis until creatinine is stabilized
[2018-07-26] MEDS ORDERED: LIDOCAINE 1% INJ 10MG/ML (20 ML MDV) SQ ONE (16:02)
[2018-07-26] MEDS ORDERED: MIDAZOLAM 2 MG/2 ML VIAL IVP ONE (16:10)
[2018-07-26] MEDS ORDERED: fentaNYL (PF) 50 MCG/ML 2 ML AMP IVP ONE (16:11)
[2018-07-26] MEDS ORDERED: IV FLUID CONTINUATION 1,000 ML IV ONE (16:14)
[2018-07-26 18:20] LABS: Protein, Total 4.8 g/dL (6.2-8.2)
--- NOTE | 2018-07-26 18:49 | XR ---
EXAMINATION: XR chest 1V DATE AND TIME: 07/26/2018 6:03 PM CLINICAL INDICATION: PHH; dialysis cath placement TECHNIQUE: AP portable upright COMPARISON: 07/25/2018 at 4:05 PM FINDINGS: Right IJ catheter tip superimposed over the expected position of the mid/distal SVC. The lungs are clear. The pleural spaces are negative. The cardiac silhouette is not enlarged. The remainder of the mediastinal silhouette is unremarkable. The skeletal structures and soft tissues are negative for acute findings. IMPRESSION: NO ACUTE PROCESS.
[2018-07-26 19:20] LABS: Anti-DNA, DS unit <1.0 IU/mL; DNA Double-Stranded NEGATIVE (NEGATIVE)
--- NOTE | 2018-07-26 20:00 | CONS ---
CONSULTATION This is a 38-year-old gentleman who came with acute kidney injury. Patient has not seen a physician. Patient presented with generalized weakness with poor intake. Patient has a creatinine of 20.51. There is no history of diabetes. Patient had an ultrasound which showed small-sized kidney. On examination, head is unremarkable. NECK: No bruit appreciated. LUNGS: Normal breath sounds. Some decreased breath sounds noted at lung bases. First and second sounds normal. ABDOMEN: Soft. Femoral pulses are present. IMPRESSION: 1. Acute kidney injury. 2. Hypokalemia secondary to hypomagnesemia. 3. Patient also has a hemoglobin of 7.9. PLAN: Placement of dialysis catheter. Risks and complications were discussed, including bleeding, infection, thrombosis. MMODL / IJN: [id number] /
[2018-07-26] MEDS ORDERED: Potassium Replacement Protocol 1 EACH MISC MISCELLANE PRN (20:38)
[2018-07-26] MEDS ORDERED: POTASSIUM CHLORIDE ER 20 MEQ TAB.ER PO SCH (21:00)
[2018-07-26 21:53] LABS: HCT 24.9 % (39.0-53.0); HGB 8.8 gm/dL (13.0-17.5); MCH 31.4 pg (25.0-35.0); MCHC 35.4 g/dL (31.0-37.0); MCV 88.9 fL (80.0-100.0); Platelet Count 171 k/uL (150-450); RDW 14.7 % (11.5-15.5); WBC 7.6 k/uL (3.8-10.6)
[2018-07-26] MEDS: CALCITRIOL 0.25 MCG CAP PO SCH (22:11)
[2018-07-27] MEDS: DEXTROSE 5% IN WATER 1,000 ML with SODIUM BICARB (1 MEQ/ML) 150 ML IV SCH (00:30)
--- NOTE | 2018-07-27 00:39 | PCN ---
PROCEDURE NOTE PREOP DIAGNOSIS: Acute on chronic renal failure. PROCEDURE: Ultrasound-guided 23 cm dilated right IJ catheter. SEDATION: Time is 31 minutes. PROCEDURE: This patient was brought to the warehouse laborer. Right side of the neck and chest was prepped and drapes applied in the usual sterile manner. 1% lidocaine infiltrated. Patient given Versed IV and fentanyl. Ultrasound-guided micropuncture into the right jugular vein. Micropuncture guidewire was passed and a 4-Albanian dilator advanced on the top of the guidewire. After that, a small incision was made to the chest wall and 19 cm dialysis catheter brought to the neck incision area. After that, dilator was advanced on top of the guidewire. Then we advanced the sheath. Through the sheath, we introduced the dialysis catheter. Tip of the catheter introduced into the superior vena cava and atrium. Flushed with heparin saline and hep-locked and secured with 3-0 nylon. Dressing applied. Patient tolerated the procedure well. MMODL / IJN: [id number] /
[2018-07-27 01:25] LABS: Hepatitis A Antibody IgM Non-Reactive (Non-Reactive); Hepatitis B Core IgM Non-Reactive (Non-Reactive)
[2018-07-27 01:53] LABS: Potassium 3.2 mmol/L (3.5-5.1)
[2018-07-27 02:21] LABS: Calcium 5.4 mg/dL (8.4-10.2)
[2018-07-27] MEDS ORDERED: POTASSIUM BICARBONATE/CIT AC 20 MEQ TABLET.EFF PO ONE (02:26)
[2018-07-27 06:26] LABS: HCT 24.4 % (39.0-53.0); HGB 8.5 gm/dL (13.0-17.5); MCH 31.6 pg (25.0-35.0); MCV 90.4 fL (80.0-100.0); Mean Platelet Volume 8.5; Platelet Count 162 k/uL (150-450); RDW 14.9 % (11.5-15.5); WBC 6.7 k/uL (3.8-10.6)
[2018-07-27 06:53] LABS: Magnesium 1.8 mg/dL (1.6-2.3); Phosphorus 5.6 mg/dL (2.5-4.5); Potassium 3.3 mmol/L (3.5-5.1)
[2018-07-27 07:14] LABS: Calcium 4.9 mg/dL (8.4-10.2)
[2018-07-27] MEDS ORDERED: DEXTROSE 5% IN WATER 1,000 ML with SODIUM BICARB (1 MEQ/ML) 150 ML IV SCH (07:15)
[2018-07-27] MEDS ORDERED: POTASSIUM CHLORIDE ER 20 MEQ TAB.ER PO STA (08:14)
--- NOTE | 2018-07-27 08:16 | P.PN ---
Subjective Patient is seen in follow-up for acute kidney injury. Creatinine was 23 on admission and patient had signs of uremia. He was started on hemodialysis and tolerated the first treatment well yesterday. Scheduled for second treatment today. Denies chest pain or shortness of breath. Urine output has been 40 60 mL an hour. Vital signs are stable. General: The patient appeared well nourished and normally developed. HEENT: Head exam is unremarkable. Neck is without jugular venous distension. LUNGS: Lungs are clear to auscultation and percussion. Breath sounds decreased. HEART: Rate and Rhythm are regular. First and second heart sounds normal. No murmurs, rubs or gallops. ABDOMEN: Abdominal exam reveals normal bowel sounds. Non-tender and non- distended. No evidence of peritonitis. EXTREMITITES: No clubbing, cyanosis, or edema. Objective - Vital Signs Vital signs: Vital Signs Temp 98.4 F 07/27/18 03:00 Pulse 77 07/27/18 07:00 Resp 10 L 07/27/18 07:00 BP 108/69 07/27/18 07:00 Pulse Ox 97 07/27/18 07:00 Intake & Output 07/26/18 07/27/18 07/27/18 18:59 06:59 18:59 Intake Total 2410 1100 100 Output Total 1000 656 60 Balance 1410 444 40 Weight 51.5 kg 55.4 kg Intake: IV 1950 1100 100 Dextrose 5% in Water 1, 1450 1100 100 000 ml @ 150 mls/hr IV . Q7H40M CALE with Sodium Bicarb (1 Meq/ml) 150 ml Rx#:[id number] Mag 300 Potassium Chloride 10 meq 200 In Water For Injection 1 100ml.bag @ 100 mls/hr IVPB Q1H CALE Rx#: [id number] Oral 150 Blood Product 310 Rc Cpda-1 Unit 310 [id number] Output: Urine 1000 655 60 Stool 1 Other: Voiding Method Indwelling Catheter Indwelling Catheter - Labs CBC & Chem 7: 07/27/18 05:55 07/27/18 05:55 Labs: Abnormal Lab Results - Last 24 Hours (Table) 07/26/18 07/26/18 07/26/18 Range/Units 07:30 10:48 10:50 RBC (4.30-5.90) m/uL Hgb (13.0-17.5) gm/dL Hct (39.0-53.0) % Sodium (137-145) mmol/L Potassium 2.7 L* (3.5-5.1) mmol/L Chloride (98-107) mmol/L Carbon Dioxide 18 L (22-30) mmol/L BUN 150 H* (9-20) mg/dL Creatinine 20.51 H* (0.66-1.25) mg/dL Glucose 114 H (74-99) mg/dL Calcium 4.0 L* (8.4-10.2) mg/dL Phosphorus 9.5 H* (2.5-4.5) mg/dL Magnesium 1.2 L (1.6-2.3) mg/dL Creatine Kinase 920 H (55-170) U/L Total Protein 5.6 L (6.3-8.2) g/dL Total Protein (PEP) 4.8 L (6.2-8.2) g/dL Albumin 3.2 L (3.5-5.0) g/dL Urine Protein 1+ H (Negative) Urine Glucose (UA) 1+ H (Negative) Urine Blood Moderate H (Negative) Ur Leukocyte Esterase Large H (Negative) Urine RBC 13 H (0-5) /hpf Urine WBC >182 H (0-5) /hpf Urine WBC Clumps Moderate H (None) /hpf Urine Bacteria Moderate H (None) /hpf U Random Total Protein (<12) mg/dL 07/26/18 07/26/18 07/26/18 Range/Units 10:50 19:15 21:20 RBC 2.80 L (4.30-5.90) m/uL Hgb 8.8 L (13.0-17.5) gm/dL Hct 24.9 L (39.0-53.0) % Sodium (137-145) mmol/L Potassium 2.3 L* (3.5-5.1) mmol/L Chloride (98-107) mmol/L Carbon Dioxide (22-30) mmol/L BUN (9-20) mg/dL Creatinine (0.66-1.25) mg/dL Glucose (74-99) mg/dL Calcium (8.4-10.2) mg/dL Phosphorus (2.5-4.5) mg/dL Magnesium (1.6-2.3) mg/dL Creatine Kinase (55-170) U/L Total Protein (6.3-8.2) g/dL Total Protein (PEP) (6.2-8.2) g/dL Albumin (3.5-5.0) g/dL Urine Protein (Negative) Urine Glucose (UA) (Negative) Urine Blood (Negative) Ur Leukocyte Esterase (Negative) Urine RBC (0-5) /hpf Urine WBC (0-5) /hpf Urine WBC Clumps (None) /hpf Urine Bacteria (None) /hpf U Random Total Protein 87 H (<12) mg/dL 07/27/18 07/27/18 07/27/18 Range/Units 00:58 05:55 05:55 RBC 2.70 L (4.30-5.90) m/uL Hgb 8.5 L (13.0-17.5) gm/dL Hct 24.4 L (39.0-53.0) % Sodium 136 L (137-145) mmol/L Potassium 3.2 L 3.3 L (3.5-5.1) mmol/L Chloride 96 L 93 L (98-107) mmol/L Carbon Dioxide (22-30) mmol/L BUN 79 H 80 H (9-20) mg/dL Creatinine 10.88 H* 11.04 H* (0.66-1.25) mg/dL Glucose 128 H 143 H (74-99) mg/dL Calcium 5.4 L* 4.9 L* (8.4-10.2) mg/dL Phosphorus 5.6 H (2.5-4.5) mg/dL Magnesium (1.6-2.3) mg/dL Creatine Kinase (55-170) U/L Total Protein (6.3-8.2) g/dL Total Protein (PEP) (6.2-8.2) g/dL Albumin (3.5-5.0) g/dL Urine Protein (Negative) Urine Glucose (UA) (Negative) Urine Blood (Negative) Ur Leukocyte Esterase (Negative) Urine RBC (0-5) /hpf Urine WBC (0-5) /hpf Urine WBC Clumps (None) /hpf Urine Bacteria (None) /hpf U Random Total Protein (<12) mg/dL Assessment and Plan Plan: Assessment: 1. Acute kidney injury versus chronic kidney disease. Unknown baseline renal function. Creatinine was 23.6 at admission. This is most likely end-stage renal disease as patient's kidneys are extremely small in size. Underlying etiology is likely to be glomerulonephritis as he does have 2+ proteinuria on UA UPC 2.1 g. rest of the serologies negative so far. 2. Hypokalemia secondary to hypomagnesemia. 3. Hypomagnesemia from poor oral intake. Improving with replacement. 4. Acute blood loss anemia with hemoglobin of 5.7 status post 2 units of blood transfusion. Hemoglobin 8.5 today. No signs of active bleeding. Maintained on Aranesp. 5. Metabolic acidosis secondary to acute kidney injury. Improved. 6. Hypocalcemia secondary to acute kidney injury. 7. Hyperparathyroidism. This is likely secondary in nature from underlying chronic kidney disease. 8. Hyperphosphatemia secondary to acute kidney injury. Improving with dialysis. Also on PhosLo. Plan: Discontinue bicarbonate drip. Start normal saline at 75 mL an hour for maintenance fluids. Replace potassium. 40 mEq today. Second treatment of hemodialysis today. Third treatment tomorrow. Follow-up pending serologies. Patient will not be a candidate for kidney biopsy due to small size kidneys. Patient will be at a high risk for bleeding complications. Additionally, due to significant chronicity he will not be a candidate for treatment with chemotherapy and immunosuppressive medications. 2 g of IV calcium today. Continue calcitriol 1 g daily. vaccine manager to help facilitate outpatient hemodialysis.
[2018-07-27] MEDS: CALCITRIOL 0.25 MCG CAP PO SCH (08:33)
[2018-07-27] MEDS: CALCIUM ACETATE 667 MG CAP PO SCH ×3 (08:33→17:24)
[2018-07-27] MEDS ORDERED: ONDANSETRON 4 MG/2 ML VIAL IM STA (08:35)
[2018-07-27] MEDS: SODIUM CHLORIDE 0.9% 1,000 ML IV SCH ×2 (08:36→22:42)
[2018-07-27] MEDS ORDERED: CALCIUM GLUCONATE 2,000 MG in SODIUM CHLORIDE 0.9% 100 ML IVPB ONE (09:00)
[2018-07-27] MEDS ORDERED: ONDANSETRON 4 MG/2 ML VIAL IVP STA (09:17)
[2018-07-27] MEDS ORDERED: ONDANSETRON 4 MG/2 ML VIAL IVP PRN (09:28)
--- NOTE | 2018-07-27 09:54 | IR ---
Fluoroscopy HISTORY: Dialysis catheter placement 1.1 minutes fluoroscopy time supplied to the referring clinician. 99 intraoperative C-arm images doc ument the procedure. See dictated report from vascular surgery.
[2018-07-27 12:09] LABS: Complement C3 72.6 mg/dL (80.0-207.0)
--- NOTE | 2018-07-27 12:29 | P.PN ---
Subjective Progress Note Date: 07/27/18 38 years old male who has not been seen by Dr. Apple at this moment with no significant past medical history comes to the ER on 07/25 with nonspecific abdominal pain, back pain, nausea vomiting, generalized fatigue for the past 4 weeks. According to the patient was doing well until he started having some cough and congestion which was initially thought to be a viral infection resolved by itself, he was not seen by any provider since he was a child. He does document significant weight loss of 40 pounds sincefor the past 2 year that wa sintentional with loss of 10 pounds in the past week. Patient was noticing right flank pain for the past year and was seen at urgent care. A chest x-ray was done which did not report any pneumonia. No further workup was done. Patient does not take any Tylenol or ibuprofen at home. He is not on any medication except for vitamin C. On evaluation in the ER, labs suggestive hemoglobin of 5.7, potassium 2.7 carbon dioxide 10, B UN 155 creatinine 22, , glucose 119, serum osmolarity 338, calcium 4.8, phosphorus 12.9 , magnesium 1.2 episodes to 89, urinalysis was obtained that suggested 182 WBCs , positive leukocyte esterase, few normal urine osmolarity of 282, increase in 1477-related acetaminophen levels were normal. Patient received 2 units of packed RBCs and 3 g of calcium, magnesium 3 g supplementation, 100 mEq of potassium, sodium bicarb. Her peak labs suggest improvement in the hemoglobin to 7.9 potassium is still low at 2.7, creatinine is high at 20 , calcium is 4, phosphorus 9.5. EKG suggests peaked T waves with prolongation of QT interval. CT abdomen was done which suggested atrophic kidneys no other abnormality seen on evaluation patient denies any headache at 3 history of kidney problems except for grandfather who had kidney disease at a young age with history of glomerular nephritis. Patient denies any history of hepatitis or HIV. He denies any history of rash except for psoriasic. No history of frothy or cola colored urine. Energy has seen the patient well recommendation on bicarb drip for the next 24 hours. Patient will be initiated on dialysis starting today after placement of the dialysis catheter. 07/27: Patient has been afebrile, heart rate running in the 70s and 80s, blood pressure 110/68, pulse ox 98% on room air. Repeat lab work reveals hemoglobin 8.5, BUN 80, creatinine 11.04, potassium 3.3, sodium 136, chloride 93. Acute hepatitis panel has been negative, TORRES negative, double-stranded DNA antibody negative total complement 46 which is normal. Patient was seen by Dr. Savage and right IJ catheter was placed. Patient underwent hemodialysis yesterday and is scheduled again today. Urine output is 40-60 mL per hour. Patient denies any complaints. Patient denies any chest pain or shortness of breath. He had no problems during the night. He did have a bowel movement this morning and denies any blood or tar in his stool stool. Patient did have 3 episodes of vomiting emesis with yellow-green this morning and Zofran since be helping. He is taking sips of water and trying to take his pills now. Plan is for hemodialysis at the dialysis center on Monday. Dr. Richmond has cleared him for transfer to [facility] which will be done today. Review of Systems Constitutional: Denies chills, Denies fever, endorses lethargy, endorses malaise, Denies poor appetite, endorses weakness, endorses weight loss Eyes: denies decreased vision, denies diplopia, denies discharge, denies pain Ears: deny: decreased hearing Ears, nose, mouth and throat: Denies dental pain, Denies headache, Denies nasal discharge, Denies nose pain Cardiovascular: Denies chest pain, Denies decreased exercise tolerance, Denies edema, Denies high blood pressure, Denies irregular heart beat, Denies palpitations, Denies paroxysmal nocturnal dyspnea, Denies rapid heart beat, Denies shortness of breath Respiratory: Denies congestion, Denies cough, Denies cough with sputum, Denies dyspnea, Denies home oxygen, Denies wheezing Gastrointestinal: Endorses abdominal pain, Denies change in bowel habits, Denies coffee ground emesis, Denies early satiety, Denies excessive gas, endorses heartburn, Denies hematemesis, Denies hematochezia, Denies loss of appetite, endorses biliary vomiting and nausea Genitourinary: Denies dysuria, Denies flank pain, Denies kidney stones, Denies menorrhagia, Denies urgency, Denies urinary frequency Musculoskeletal: Denies gait dysfunction, Denies limitation of motion, Denies morning stiffness, Denies muscle cramps Integumentary: Denies rash, Denies wounds, Denies brittle nails, Denies change in hair/nails, Denies darkening of skin Neurological: Denies balance difficulties, Denies change in speech, Denies double vision, Denies gait dysfunction, Denies loss of vision, Denies motor disturbance, Denies numbness, Denies paralysis, Denies paresthesias, Denies seizures Psychiatric: Denies anxiety, Denies depression Endocrine: Denies excessive sweating, Denies excessive thirst, Denies high blood sugars Hematologic/Lymphatic: Denies easy bruising, Denies lymphadenopathy Objective - Vital Signs Vital signs: Vital Signs Temp 98.6 F 07/27/18 08:00 Pulse 87 07/27/18 08:00 Resp 12 07/27/18 08:00 BP 110/68 07/27/18 08:00 Pulse Ox 98 07/27/18 08:00 Intake & Output 07/26/18 07/27/18 07/27/18 18:59 06:59 18:59 Intake Total 2410 1100 100 Output Total 1000 656 60 Balance 1410 444 40 Weight 51.5 kg 55.4 kg Intake: IV 1950 1100 100 Dextrose 5% in Water 1, 1450 1100 100 000 ml @ 150 mls/hr IV . Q7H40M CALE with Sodium Bicarb (1 Meq/ml) 150 ml Rx#:[id number] Mag 300 Potassium Chloride 10 meq 200 In Water For Injection 1 100ml.bag @ 100 mls/hr IVPB Q1H CALE Rx#: [id number] Oral 150 Blood Product 310 Rc Cpda-1 Unit 310 [id number] Output: Urine 1000 655 60 Stool 1 Other: Voiding Method Indwelling Catheter Indwelling Catheter - Exam General appearance: cooperative, no acute distress, thin, sitting in recliner appears to be comfortable and in no acute distress - EENT Eyes: anicteric sclerae, PERRLA, normal appearance ENT: hearing grossly normal - Neck Neck: no lymphadenopathy, normal ROM, no other, no rigidity, no stridor, no thyromegaly - Respiratory Respiratory: bilateral: CTA, negative: diminished, dullness, rales, rhonchi - Cardiovascular Rhythm: regular Heart sounds: normal: S1, S2 Abnormal Heart Sounds: no systolic murmur, no diastolic murmur, no rub, no S3 Gallop, no S4 Gallop, no click - Gastrointestinal General gastrointestinal: normal bowel sounds, soft, non tender - Integumentary Integumentary: no rash some acne on the shoulder and elbow but no rashes seen - Neurologic Neurologic: CNII-XII intact - Musculoskeletal Musculoskeletal: gait normal, strength equal bilaterally - Psychiatric Psychiatric: A&O x's 3, appropriate affect - Labs CBC & Chem 7: 07/27/18 05:55 07/27/18 05:55 Labs: Abnormal Lab Results - Last 24 Hours (Table) 07/26/18 07/26/18 07/26/18 Range/Units 10:48 10:50 10:50 RBC (4.30-5.90) m/uL Hgb (13.0-17.5) gm/dL Hct (39.0-53.0) % Sodium (137-145) mmol/L Potassium (3.5-5.1) mmol/L Chloride (98-107) mmol/L BUN (9-20) mg/dL Creatinine (0.66-1.25) mg/dL Glucose (74-99) mg/dL Calcium (8.4-10.2) mg/dL Phosphorus (2.5-4.5) mg/dL Total Protein (PEP) 4.8 L (6.2-8.2) g/dL Urine Protein 1+ H (Negative) Urine Glucose (UA) 1+ H (Negative) Urine Blood Moderate H (Negative) Ur Leukocyte Esterase Large H (Negative) Urine RBC 13 H (0-5) /hpf Urine WBC >182 H (0-5) /hpf Urine WBC Clumps Moderate H (None) /hpf Urine Bacteria Moderate H (None) /hpf U Random Total Protein 87 H (<12) mg/dL 07/26/18 07/26/18 07/27/18 Range/Units 19:15 21:20 00:58 RBC 2.80 L (4.30-5.90) m/uL Hgb 8.8 L (13.0-17.5) gm/dL Hct 24.9 L (39.0-53.0) % Sodium (137-145) mmol/L Potassium 2.3 L* 3.2 L (3.5-5.1) mmol/L Chloride 96 L (98-107) mmol/L BUN 79 H (9-20) mg/dL Creatinine 10.88 H* (0.66-1.25) mg/dL Glucose 128 H (74-99) mg/dL Calcium 5.4 L* (8.4-10.2) mg/dL Phosphorus (2.5-4.5) mg/dL Total Protein (PEP) (6.2-8.2) g/dL Urine Protein (Negative) Urine Glucose (UA) (Negative) Urine Blood (Negative) Ur Leukocyte Esterase (Negative) Urine RBC (0-5) /hpf Urine WBC (0-5) /hpf Urine WBC Clumps (None) /hpf Urine Bacteria (None) /hpf U Random Total Protein (<12) mg/dL 07/27/18 07/27/18 Range/Units 05:55 05:55 RBC 2.70 L (4.30-5.90) m/uL Hgb 8.5 L (13.0-17.5) gm/dL Hct 24.4 L (39.0-53.0) % Sodium 136 L (137-145) mmol/L Potassium 3.3 L (3.5-5.1) mmol/L Chloride 93 L (98-107) mmol/L BUN 80 H (9-20) mg/dL Creatinine 11.04 H* (0.66-1.25) mg/dL Glucose 143 H (74-99) mg/dL Calcium 4.9 L* (8.4-10.2) mg/dL Phosphorus 5.6 H (2.5-4.5) mg/dL Total Protein (PEP) (6.2-8.2) g/dL Urine Protein (Negative) Urine Glucose (UA) (Negative) Urine Blood (Negative) Ur Leukocyte Esterase (Negative) Urine RBC (0-5) /hpf Urine WBC (0-5) /hpf Urine WBC Clumps (None) /hpf Urine Bacteria (None) /hpf U Random Total Protein (<12) mg/dL Assessment and Plan Plan: #1 acute abdominal pain secondary to acute kidney injury versus chronic kidney disease possibly secondary to glomerulonephritis. Does have h/o glomerulonephritis in grandfather. Biopsy could not be performed due to patient' s size of kidneys on the CT abdomen. Immunofixation and urine protein electrophoresis ordered. Patient does not provide any history of hematuria or proteinuria. Random protein in the urine is 87 the patient's serum protein is also low, other differential includes Alport syndrome and IgA nephropathy based on patient's age. #2 hypokalemia with EKG changes of QT prolongation. Repeat EKG. 40 mEq of potassium given today. Repeat potassium pending #3 hypomagnesemia, status post repletion #4 anemia likely secondary to chronic kidney disease no acute blood loss. Status post 2 units of PRBCs. Repeat CBC tomorrow #5 hypocalcemia secondary to acute kidney injury status. #6 hyperparathyroidism secondary to chronic kidney disease status. On calcitriol 1 g daily #7 hypophosphatemia on PhosLo with meals repeat labs tomorrow #8 acute metabolic acidosis secondary to acute kidney injury continue bicarb for the next 24 hours #9 DVT prophylaxis with SCDs patient is a low risk #10 code status full code #11 UTI was initiated on cefazolin patient does have a ALLERGY reaction to ampicillin and was less than 2 years ago in the form of hives. Since there is least cross-reactivity between the 2 will monitor the patient on cefazolin Discharge plan: Home. Patient is tentatively scheduled for dialysis at the dialysis center on Monday. Impression and plan of care have been directed as dictated by the signing physician. Giulia Jiménez nurse practitioner acting as scribe for signing physician.
--- NOTE | 2018-07-27 13:51 | P.PN ---
Subjective Progress Note Date: 07/27/18 Principal diagnosis: Acute on chronic kidney injury, suspect chronic renal failure, end-stage renal disease, Patient was reevaluated today on 07/27/2018, patient was seen by many consultants on admission including nephrology, and it was felt that the patient has end-stage renal disease, and he recommended immediate dialysis. Patient has been dialyzed yesterday and he was dialyzed this morning, his first treatment of dialysis was late yesterday. Patient is doing well, continues to have decent urine output about 40-60 mL per hour. Denies any cough wheezing shortness of breath, tells me that he feels much per her compared to how he felt when he came in. Ration is also anemic on presentation, and his anemia was felt to be secondary to chronic renal disease. Did receive blood transfusions. He received a total of unit 2 units of packed RBCs since admission, and his hemoglobin today is 8.5. Objective - Vital Signs Vital signs: Vital Signs Temp 98 F 07/27/18 12:00 Pulse 77 07/27/18 13:00 Resp 17 07/27/18 13:00 BP 121/108 07/27/18 13:00 Pulse Ox 97 07/27/18 13:00 Intake & Output 07/26/18 07/27/18 07/27/18 18:59 06:59 18:59 Intake Total 2410 1100 500 Output Total 1000 656 435 Balance 1410 444 65 Weight 51.5 kg 55.4 kg Intake: IV 1950 1100 200 Dextrose 5% in Water 1, 1450 1100 200 000 ml @ 150 mls/hr IV . Q7H40M CALE with Sodium Bicarb (1 Meq/ml) 150 ml Rx#:[id number] Mag 300 Potassium Chloride 10 meq 200 In Water For Injection 1 100ml.bag @ 100 mls/hr IVPB Q1H CALE Rx#: [id number] Intake, IV Titration 300 Amount Sodium Chloride 0.9% 1, 300 000 ml @ 75 mls/hr IV . [id number] CALE Rx#:[id number] Oral 150 Blood Product 310 Rc Cpda-1 Unit 310 [id number] Output: Urine 1000 655 435 Stool 1 Other: Voiding Method Indwelling Catheter Indwelling Catheter Indwelling Catheter - Exam ENERAL EXAM: Alert, thin, 38-year-old pale white male comfortable in no apparent distress. HEAD: Normocephalic/atraumatic. HEENT: Neck is supple no neck masses, no thyromegaly, PERRLA, EOMI, no icterus. . CHEST: No chest wall deformity. Symmetrical expansion. LUNGS: Equal air entry with no crackles, wheeze, rhonchi or dullness. CVS: Regular rate and rhythm, normal S1 and S2, no gallops, no murmurs, no rubs ABDOMEN: Soft, nontender. No hepatosplenomegaly, normal bowel sounds, no guarding or rigidity. EXTREMITIES: No clubbing, no edema, no cyanosis, 2+ pulses and upper and lower extremities. MUSCULOSKELETAL: Muscle strength and tone normal. SPINE: No scoliosis or deformity SKIN: No rashes Neurologic: Alert oriented 3, no gross focal neurologic deficits. - Labs CBC & Chem 7: 07/27/18 05:55 07/27/18 05:55 Labs: Abnormal Lab Results - Last 24 Hours (Table) 07/26/18 07/26/18 07/26/18 Range/Units 10:48 19:15 21:20 RBC 2.80 L (4.30-5.90) m/uL Hgb 8.8 L (13.0-17.5) gm/dL Hct 24.9 L (39.0-53.0) % Sodium (137-145) mmol/L Potassium 2.3 L* (3.5-5.1) mmol/L Chloride (98-107) mmol/L BUN (9-20) mg/dL Creatinine (0.66-1.25) mg/dL Glucose (74-99) mg/dL Calcium (8.4-10.2) mg/dL Phosphorus (2.5-4.5) mg/dL Total Protein (PEP) 4.8 L (6.2-8.2) g/dL Complement C3 72.6 L (80.0-207.0) mg/dL 07/27/18 07/27/18 07/27/18 Range/Units 00:58 05:55 05:55 RBC 2.70 L (4.30-5.90) m/uL Hgb 8.5 L (13.0-17.5) gm/dL Hct 24.4 L (39.0-53.0) % Sodium 136 L (137-145) mmol/L Potassium 3.2 L 3.3 L (3.5-5.1) mmol/L Chloride 96 L 93 L (98-107) mmol/L BUN 79 H 80 H (9-20) mg/dL Creatinine 10.88 H* 11.04 H* (0.66-1.25) mg/dL Glucose 128 H 143 H (74-99) mg/dL Calcium 5.4 L* 4.9 L* (8.4-10.2) mg/dL Phosphorus 5.6 H (2.5-4.5) mg/dL Total Protein (PEP) (6.2-8.2) g/dL Complement C3 (80.0-207.0) mg/dL Assessment and Plan Assessment: #1. Acute kidney injury with suspected underlying chronic kidney disease, with an unknown baseline renal function #2. Multiple electrolyte abnormalities including hypokalemia, hypomagnesemia, hypocalcemia #3. Acute versus chronic anemia, requiring transfusion with 2 units of packed red blood cells, hemoglobin of 5.7 on admission, with no clear history of GI blood loss #4. Metabolic acidosis secondary to acute kidney injury #5. Secondary hyperparathyroidism likely related to chronic kidney disease #6. Hyperphosphatemia #7. Nausea and vomiting, and weakness on presentation #8. Abdominal pain, elevated lipase suggesting acute pancreatitis #9. Lifetime nonsmoker, no history of EtOH use Recommendation: Discussed with the patient and his his overall clinical condition, patient is doing well now that he is being dialyzed, he is feeling much better and stronger since he received 2 units of packed RBCs, patient could be considered for transfer out of the ICU to a medical bed continue dialysis, and consider discharge planning once cleared by nephrology. We'll follow the patient on when necessary basis. Time with Patient: Less than 30
[2018-07-27 13:52] LABS: C-ANCA <1:20 Titer (<1:20); P-ANCA <1:20 Titer (<1:20)
[2018-07-27 14:00] LABS: Gamma Globulin 0.65 g/dL (0.70-1.50)
[2018-07-27 15:49] LABS: HIV-1 RNA Not detected (Not detected)
[2018-07-27] MEDS: ceFAZolin 1,000 MG in DEXTROSE/WATER 1 50ML.BAG IVPB SCH (17:03)
[2018-07-28] MEDS: CALCITRIOL 0.25 MCG CAP PO SCH (07:52)
[2018-07-28] MEDS: CALCIUM ACETATE 667 MG CAP PO SCH ×2 (07:52→21:10)
[2018-07-28 09:00] LABS: HCT 28.1 % (39.0-53.0); HGB 9.2 gm/dL (13.0-17.5); MCH 31.3 pg (25.0-35.0); MCHC 32.6 g/dL (31.0-37.0); Mean Platelet Volume 8.1; Platelet Count 182 k/uL (150-450); RBC 2.93 m/uL (4.30-5.90); RDW 14.9 % (11.5-15.5); WBC 5.7 k/uL (3.8-10.6)
[2018-07-28 09:10] LABS: Magnesium 1.7 mg/dL (1.6-2.3); Potassium 4.2 mmol/L (3.5-5.1)
[2018-07-28 09:17] LABS: Calcium 5.8 mg/dL (8.4-10.2)
[2018-07-28] MEDS: ceFAZolin 1,000 MG in DEXTROSE/WATER 1 50ML.BAG IVPB SCH (21:10)
[2018-07-28] MEDS: SODIUM CHLORIDE 0.9% 1,000 ML IV SCH (21:10)
[2018-07-29] MEDS: SODIUM CHLORIDE 0.9% 1,000 ML IV SCH ×2 (01:22→16:12)
[2018-07-29 07:46] LABS: HCT 25.5 % (39.0-53.0); HGB 8.3 gm/dL (13.0-17.5); MCH 31.1 pg (25.0-35.0); MCHC 32.5 g/dL (31.0-37.0); MCV 95.7 fL (80.0-100.0); Mean Platelet Volume 7.5; Platelet Count 180 k/uL (150-450); RBC 2.67 m/uL (4.30-5.90); RDW 14.5 % (11.5-15.5); WBC 5.9 k/uL (3.8-10.6)
[2018-07-29 08:27] LABS: Magnesium 1.6 mg/dL (1.6-2.3); Phosphorus 4.1 mg/dL (2.5-4.5); Potassium 3.6 mmol/L (3.5-5.1)
[2018-07-29 08:44] LABS: Calcium 5.7 mg/dL (8.4-10.2)
[2018-07-29] MEDS: CALCITRIOL 0.25 MCG CAP PO SCH (09:58)
[2018-07-29] MEDS: CALCIUM ACETATE 667 MG CAP PO SCH ×3 (09:58→18:56)
--- NOTE | 2018-07-29 12:43 | P.PN ---
Subjective Progress Note Date: 07/29/18 Seen and examined for the follow-up of ESRD. No previous nephrology care presented to the hospital with a creatinine of 23 small size kidneys. Currently on hemodialysis started on for xntt-ir-avam 3 treatments. No nausea vomiting diarrhea. Family at bedside. Explained to the family because of the small kidneys not a candidate for biopsy. Serology workup is negative so far far. Objective - Vital Signs Vital signs: Vital Signs Temp 99.0 F 07/29/18 10:01 Pulse 87 07/29/18 10:01 Resp 16 07/29/18 10:02 BP 121/74 07/29/18 10:01 Pulse Ox 100 07/29/18 10:01 Intake & Output 07/28/18 07/29/18 07/29/18 18:59 06:59 18:59 Intake Total 240 1840 Balance 240 1840 Intake: Intake, IV Titration 750 Amount Sodium Chloride 0.9% 1, 750 000 ml @ 75 mls/hr IV . [id number] CALE Rx#:[id number] Oral 240 1090 Other: # Voids 2 - Exam No acute distress S1-S2 heard Lungs clear Right jugular permacath No edema - Labs CBC & Chem 7: 07/29/18 06:44 07/29/18 06:44 Labs: Abnormal Lab Results - Last 24 Hours (Table) 07/29/18 07/29/18 Range/Units 06:44 06:44 RBC 2.67 L (4.30-5.90) m/uL Hgb 8.3 L (13.0-17.5) gm/dL Hct 25.5 L (39.0-53.0) % BUN 21 H (9-20) mg/dL Creatinine 5.12 H (0.66-1.25) mg/dL Calcium 5.7 L* (8.4-10.2) mg/dL Assessment and Plan Assessment: #1 ESRD currently on dialysis. Plan dialysis for tomorrow. #2 anemia with ESRD #3 metabolic bone disease with ESRD #4 hypertension with ESRD Plan: #1 plan dialysis tomorrow. body corporate manager working for outpatient dialysis placement. Once ready can be discharged from nephrology point of view to be followed up as outpatient. #2 explained to the family regarding kidney transplant.
--- NOTE | 2018-07-29 15:26 | P.PN ---
Subjective Progress Note Date: 07/28/18 Principal diagnosis: Acute kidney failure, on hemodialysis, acute abdominal pain, acute anemia post blood transfusion, hypoxia, hyperparathyroidism, acute metabolic acidosis, UTI 38 years old male who has not been seen by Dr. Apple at this moment with no significant past medical history comes to the ER on 07/25 with nonspecific abdominal pain, back pain, nausea vomiting, generalized fatigue for the past 4 weeks. According to the patient was doing well until he started having some cough and congestion which was initially thought to be a viral infection resolved by itself, he was not seen by any provider since he was a child. He does document significant weight loss of 40 pounds sincefor the past 2 year that wa sintentional with loss of 10 pounds in the past week. Patient was noticing right flank pain for the past year and was seen at urgent care. A chest x-ray was done which did not report any pneumonia. No further workup was done. Patient does not take any Tylenol or ibuprofen at home. He is not on any medication except for vitamin C. On evaluation in the ER, labs suggestive hemoglobin of 5.7, potassium 2.7 carbon dioxide 10, B UN 155 creatinine 22, , glucose 119, serum osmolarity 338, calcium 4.8, phosphorus 12.9 , magnesium 1.2 episodes to 89, urinalysis was obtained that suggested 182 WBCs , positive leukocyte esterase, few normal urine osmolarity of 282, increase in 1477-related acetaminophen levels were normal. Patient received 2 units of packed RBCs and 3 g of calcium, magnesium 3 g supplementation, 100 mEq of potassium, sodium bicarb. Her peak labs suggest improvement in the hemoglobin to 7.9 potassium is still low at 2.7, creatinine is high at 20 , calcium is 4, phosphorus 9.5. EKG suggests peaked T waves with prolongation of QT interval. CT abdomen was done which suggested atrophic kidneys no other abnormality seen on evaluation patient denies any headache at 3 history of kidney problems except for grandfather who had kidney disease at a young age with history of glomerular nephritis. Patient denies any history of hepatitis or HIV. He denies any history of rash except for psoriasic. No history of frothy or cola colored urine. [employer] has seen the patient well recommendation on bicarb drip for the next 24 hours. Patient will be initiated on dialysis starting today after placement of the dialysis catheter. 07/27: Patient has been afebrile, heart rate running in the 70s and 80s, blood pressure 110/68, pulse ox 98% on room air. Repeat lab work reveals hemoglobin 8.5, BUN 80, creatinine 11.04, potassium 3.3, sodium 136, chloride 93. Acute hepatitis panel has been negative, TORRES negative, double-stranded DNA antibody negative total complement 46 which is normal. Patient was seen by Dr. Savage and right IJ catheter was placed. Patient underwent hemodialysis yesterday and is scheduled again today. Urine output is 40-60 mL per hour. Patient denies any complaints. Patient denies any chest pain or shortness of breath. He had no problems during the night. He did have a bowel movement this morning and denies any blood or tar in his stool stool. Patient did have 3 episodes of vomiting emesis with yellow-green this morning and Zofran since be helping. He is taking sips of water and trying to take his pills now. Plan is for hemodialysis at the dialysis center on Monday. Dr. Richmond has cleared him for transfer to [facility] which will be done today. 07/28: Patient is afebrile, doing very well on his family were in his room long discussion about was going on with the patient that his feeling much better since he started dialysis. Patient is seen nephrology regular basis is not symptomatic currently no further nausea vomiting is feeling much better much stronger. Patient's family start looking more optimistic for the possibility of kidney transplant. Patient has been out of the ICU and ambulating doing very well. Objective - Vital Signs Vital signs: Vital Signs Temp 98.7 F 07/28/18 07:50 Pulse 81 07/28/18 07:50 Resp 16 07/28/18 07:50 BP 122/76 07/28/18 07:50 Pulse Ox 99 07/28/18 07:50 Intake & Output 07/28/18 07/28/18 07/29/18 06:59 18:59 06:59 Intake Total 250 240 Balance 250 240 Intake: Intake, IV Titration 250 Amount Sodium Chloride 0.9% 1, 250 000 ml @ 75 mls/hr IV . [id number] [facility] Rx#:[id number] Oral 240 Other: # Voids 2 - Exam Review of system: CONSTITUTIONAL: Well-developed no acute respiratory distress. EYES: No icterus sclerae, no conjunctivitis. EARS, NOSE, MOUTH, THROAT, and FACE: No sore throat, lymphadenopathy, carotid bruits or deformity. RESPIRATORY: No SOB cough or wheezes. CARDIOVASCULAR: No CP, Palpitation, PND, Orthopnea, or angina. GASTROINTESTINAL: No Abd pain, Nausea or vomiting, no Diarrhea or constipation, No GI Bleed, no distention or masses. GENITOURINARY: Negative for Hematuria or UTI, no kidney stones. INTEGUMENT/BREAST: Negative for any muscular injury with mild osteoarthritis.. HEMATOLOGIC/LYMPHATIC: Negative for bleed or purpura. MUSCULOSKELTAL: Negative for Myalgia or arthralgia. NEURLOGICAL: No LOC, Sz or syncope, blurred vision dizziness or abnormality.. BEHAVIORAL/PSYCH: Negative. ENDOCRINE: Negative. Physical examination: General Appearance: Alert, cooperative, no distress, appears stated age. Neck HEENT: Supple, no lymphadenopathy, no thyroid enlargement, no carotid bruits. Lungs: Clear to auscultation without crackles or wheezes no rhonchi, no deformity. Chest Wall: Chest wall normal expansion with deep inspiration no tenderness and no deformity was found on exam, no costochondral pain or discomfort. Heart: Regular rate and rhythm, S1, S2 normal, no murmur, rub or gallop. Back: Symmetric, no curvature, ROM normal, no CVA tenderness. Abdomen: Soft, non-tender, bowel sounds active all four quadrants, no masses, no organomegaly. Extremities: Extremities normal, atraumatic, no cyanosis or edema. Pulses: 2+ and symmetric. Skin: Skin color, texture, tugor normal, no rashes or lesions. Neurologic: Alert oriented x3 cranial nerves II through XII intact, no motor deficit, no abnormal balance or gait. - Labs CBC & Chem 7: 07/29/18 06:44 07/29/18 06:44 Labs: Abnormal Lab Results - Last 24 Hours (Table) 07/28/18 07/28/18 Range/Units 08:22 08:22 RBC 2.93 L (4.30-5.90) m/uL Hgb 9.2 L (13.0-17.5) gm/dL Hct 28.1 L (39.0-53.0) % BUN 36 H (9-20) mg/dL Creatinine 6.78 H (0.66-1.25) mg/dL Glucose 160 H (74-99) mg/dL Calcium 5.8 L* (8.4-10.2) mg/dL Assessment and Plan Plan: 1 acute kidney failure: Not clear etiology currently whether it's glomera nephritis or acute kidney injury or any type of genetic problem is not a clear currently, biopsy was not done at this point patient is doing slightly better on hemodialysis. 2 acute abdominal pain: Most likely gastroenteritis and gastric ulcer with no other finding including his acute kidney injury should not cause any major abdominal pain at this point. 3 severe anemia: Post blood transfusion patient might need to go for an EGD in the future or if any further or recurrent anemia in the meanwhile continue iron infusion and continue patient on Procrit. 4 hyperparathyroidism: Most likely secondary to kidney failure on calcium Milvia 1 g daily. 5 acute metabolic acidosis: Secondary to acute kidney failure has been much better so far. 6 severe GERD possible peptic ulcer disease: Continue patient on pantoprazole. 7 UTI: Patient still on cefazolin currently might switch him to Ceftin. CODE STATUS: Full code. Discharge expectation: Possibly home on Monday.
--- NOTE | 2018-07-29 15:27 | P.PN ---
Subjective Progress Note Date: 07/29/18 Principal diagnosis: Acute kidney failure, on hemodialysis, acute abdominal pain, acute anemia post blood transfusion, hypoxia, hyperparathyroidism, acute metabolic acidosis, UTI 38 years old male who has not been seen by Dr. Apple at this moment with no significant past medical history comes to the ER on 07/25 with nonspecific abdominal pain, back pain, nausea vomiting, generalized fatigue for the past 4 weeks. According to the patient was doing well until he started having some cough and congestion which was initially thought to be a viral infection resolved by itself, he was not seen by any provider since he was a child. He does document significant weight loss of 40 pounds sincefor the past 2 year that wa sintentional with loss of 10 pounds in the past week. Patient was noticing right flank pain for the past year and was seen at urgent care. A chest x-ray was done which did not report any pneumonia. No further workup was done. Patient does not take any Tylenol or ibuprofen at home. He is not on any medication except for vitamin C. On evaluation in the ER, labs suggestive hemoglobin of 5.7, potassium 2.7 carbon dioxide 10, B UN 155 creatinine 22, , glucose 119, serum osmolarity 338, calcium 4.8, phosphorus 12.9 , magnesium 1.2 episodes to 89, urinalysis was obtained that suggested 182 WBCs , positive leukocyte esterase, few normal urine osmolarity of 282, increase in 1477-related acetaminophen levels were normal. Patient received 2 units of packed RBCs and 3 g of calcium, magnesium 3 g supplementation, 100 mEq of potassium, sodium bicarb. Her peak labs suggest improvement in the hemoglobin to 7.9 potassium is still low at 2.7, creatinine is high at 20 , calcium is 4, phosphorus 9.5. EKG suggests peaked T waves with prolongation of QT interval. CT abdomen was done which suggested atrophic kidneys no other abnormality seen on evaluation patient denies any headache at 3 history of kidney problems except for grandfather who had kidney disease at a young age with history of glomerular nephritis. Patient denies any history of hepatitis or HIV. He denies any history of rash except for psoriasic. No history of frothy or cola colored urine. [employer] has seen the patient well recommendation on bicarb drip for the next 24 hours. Patient will be initiated on dialysis starting today after placement of the dialysis catheter. 07/27: Patient has been afebrile, heart rate running in the 70s and 80s, blood pressure 110/68, pulse ox 98% on room air. Repeat lab work reveals hemoglobin 8.5, BUN 80, creatinine 11.04, potassium 3.3, sodium 136, chloride 93. Acute hepatitis panel has been negative, TORRES negative, double-stranded DNA antibody negative total complement 46 which is normal. Patient was seen by Dr. Savage and right IJ catheter was placed. Patient underwent hemodialysis yesterday and is scheduled again today. Urine output is 40-60 mL per hour. Patient denies any complaints. Patient denies any chest pain or shortness of breath. He had no problems during the night. He did have a bowel movement this morning and denies any blood or tar in his stool stool. Patient did have 3 episodes of vomiting emesis with yellow-green this morning and Zofran since be helping. He is taking sips of water and trying to take his pills now. Plan is for hemodialysis at the dialysis center on Monday. Dr. Richmond has cleared him for transfer to [facility] which will be done today. 07/28: Patient is afebrile, doing very well on his family were in his room long discussion about was going on with the patient that his feeling much better since he started dialysis. Patient is seen nephrology regular basis is not symptomatic currently no further nausea vomiting is feeling much better much stronger. Patient's family start looking more optimistic for the possibility of kidney transplant. Patient has been out of the ICU and ambulating doing very well. 07/29: Patient was able to ambulate walk in the unit full round with no symptoms. Patient is not going have dialysis today his last hemodialysis was done yesterday and his number looking much better. Still mildly anemic but on Procrit currently. Objective - Vital Signs Vital signs: Vital Signs Temp 99.0 F 07/29/18 10:01 Pulse 87 07/29/18 10:01 Resp 16 07/29/18 10:02 BP 121/74 07/29/18 10:01 Pulse Ox 100 07/29/18 10:01 Intake & Output 07/28/18 07/29/18 07/29/18 18:59 06:59 18:59 Intake Total 240 1840 Balance 240 1840 Intake: Intake, IV Titration 750 Amount Sodium Chloride 0.9% 1, 750 000 ml @ 75 mls/hr IV . [id number] [facility] Rx#:[id number] Oral 240 1090 Other: # Voids 2 - Exam Review of system: CONSTITUTIONAL: Well-developed no acute respiratory distress. EYES: No icterus sclerae, no conjunctivitis. EARS, NOSE, MOUTH, THROAT, and FACE: No sore throat, lymphadenopathy, carotid bruits or deformity. RESPIRATORY: No SOB cough or wheezes. CARDIOVASCULAR: No CP, Palpitation, PND, Orthopnea, or angina. GASTROINTESTINAL: No Abd pain, Nausea or vomiting, no Diarrhea or constipation, No GI Bleed, no distention or masses. GENITOURINARY: Negative for Hematuria or UTI, no kidney stones. INTEGUMENT/BREAST: Negative for any muscular injury with mild osteoarthritis.. HEMATOLOGIC/LYMPHATIC: Negative for bleed or purpura. MUSCULOSKELTAL: Negative for Myalgia or arthralgia. NEURLOGICAL: No LOC, Sz or syncope, blurred vision dizziness or abnormality.. BEHAVIORAL/PSYCH: Negative. ENDOCRINE: Negative. Physical examination: General Appearance: Alert, cooperative, no distress, appears stated age. Neck HEENT: Supple, no lymphadenopathy, no thyroid enlargement, no carotid bruits. Lungs: Clear to auscultation without crackles or wheezes no rhonchi, no deformity. Chest Wall: Chest wall normal expansion with deep inspiration no tenderness and no deformity was found on exam, no costochondral pain or discomfort. Heart: Regular rate and rhythm, S1, S2 normal, no murmur, rub or gallop. Back: Symmetric, no curvature, ROM normal, no CVA tenderness. Abdomen: Soft, non-tender, bowel sounds active all four quadrants, no masses, no organomegaly. Extremities: Extremities normal, atraumatic, no cyanosis or edema. Pulses: 2+ and symmetric. Skin: Skin color, texture, tugor normal, no rashes or lesions. Neurologic: Alert oriented x3 cranial nerves II through XII intact, no motor deficit, no abnormal balance or gait. - Labs CBC & Chem 7: 07/29/18 06:44 07/29/18 06:44 Labs: Abnormal Lab Results - Last 24 Hours (Table) 07/29/18 07/29/18 Range/Units 06:44 06:44 RBC 2.67 L (4.30-5.90) m/uL Hgb 8.3 L (13.0-17.5) gm/dL Hct 25.5 L (39.0-53.0) % BUN 21 H (9-20) mg/dL Creatinine 5.12 H (0.66-1.25) mg/dL Calcium 5.7 L* (8.4-10.2) mg/dL Assessment and Plan Plan: 1 acute kidney failure: Not clear etiology currently whether it's glomera nephritis or acute kidney injury or any type of genetic problem is not a clear currently, biopsy was not done at this point patient is doing slightly better on hemodialysis. 2 acute abdominal pain: Most likely gastroenteritis and gastric ulcer with no other finding including his acute kidney injury should not cause any major abdominal pain at this point. 3 severe anemia: Post blood transfusion patient might need to go for an EGD in the future or if any further or recurrent anemia in the meanwhile continue iron infusion and continue patient on Procrit. 4 hyperparathyroidism: Most likely secondary to kidney failure on calcium Milvia 1 g daily. 5 acute metabolic acidosis: Secondary to acute kidney failure has been much better so far. 6 severe GERD possible peptic ulcer disease: Continue patient on pantoprazole. 7 UTI: Patient still on cefazolin currently might switch him to Ceftin. CODE STATUS: Full code. Discharge expectation: Possibly home on Monday.
[2018-07-29] MEDS: ceFAZolin 1,000 MG in DEXTROSE/WATER 1 50ML.BAG IVPB SCH (16:11)
[2018-07-30 01:09] VITALS: RESP 16
[2018-07-30] MEDS: SODIUM CHLORIDE 0.9% 1,000 ML IV SCH (03:21)
[2018-07-30 07:14] LABS: Basophils % (A) 1 %; Eosinophils # (A) 0.4 k/uL (0-0.7); Eosinophils % (A) 9 %; HCT 25.7 % (39.0-53.0); HGB 8.3 gm/dL (13.0-17.5); Hypochromasia Slight; Lymphocytes # (A) 1.1 k/uL (1.0-4.8); Lymphocytes % (A) 21 %; MCH 31.2 pg (25.0-35.0); MCHC 32.2 g/dL (31.0-37.0); MCV 97.1 fL (80.0-100.0); Mean Platelet Volume 8.2; Monocytes # (A) 0.3 k/uL (0-1.0); Monocytes % (A) 6 %; Neutrophils % (A) 60 %; Platelet Count 183 k/uL (150-450); RBC 2.65 m/uL (4.30-5.90); RDW 14.7 % (11.5-15.5)
[2018-07-30 07:35] LABS: Albumin 2.6 g/dL (3.5-5.0); Magnesium 1.5 mg/dL (1.6-2.3); Phosphorus 4.3 mg/dL (2.5-4.5); Potassium 3.8 mmol/L (3.5-5.1); Total Bilirubin 0.4 mg/dL (0.2-1.3)
[2018-07-30 07:59] LABS: Calcium 5.7 mg/dL (8.4-10.2)
[2018-07-30] MEDS: CALCITRIOL 0.25 MCG CAP PO SCH (08:50)
[2018-07-30] MEDS: CALCIUM ACETATE 667 MG CAP PO SCH ×3 (08:50→18:05)
[2018-07-30] MEDS ORDERED: CALCIUM GLUCONATE 2,000 MG in SODIUM CHLORIDE 0.9% 100 ML IVPB ONE (09:30)
[2018-07-30] MEDS: MAGNESIUM SULFATE-D5W PMX 1 GM in DEXTROSE/WATER 1 100ML.BAG IVPB SCH ×2 (09:34→10:35)
--- NOTE | 2018-07-30 09:40 | P.PN ---
Subjective Patient is seen in follow-up for end-stage renal disease. Creatinine was 23 on admission and patient had signs of uremia. He was started on hemodialysis this admission and has been tolerating the treatments were also far. Scheduled for fourth treatment today. Denies chest pain or shortness of breath. Vital signs are stable. General: The patient appeared well nourished and normally developed. HEENT: Head exam is unremarkable. Neck is without jugular venous distension. LUNGS: Lungs are clear to auscultation and percussion. Breath sounds decreased. HEART: Rate and Rhythm are regular. First and second heart sounds normal. No murmurs, rubs or gallops. ABDOMEN: Abdominal exam reveals normal bowel sounds. Non-tender and non- distended. No evidence of peritonitis. EXTREMITITES: No clubbing, cyanosis, or edema. Objective - Vital Signs Vital signs: Vital Signs Temp 98.1 F 07/30/18 08:45 Pulse 85 07/30/18 08:45 Resp 16 07/30/18 08:45 BP 132/79 07/30/18 08:45 Pulse Ox 100 07/30/18 08:45 Intake & Output 07/29/18 07/30/18 07/30/18 18:59 06:59 18:59 Intake Total 240 1290 Balance 240 1290 Intake: Intake, IV Titration 750 Amount Sodium Chloride 0.9% 1, 750 000 ml @ 75 mls/hr IV . [id number] [facility] Rx#:[id number] Oral 240 540 Other: # Voids 2 2 # Bowel Movements 1 - Labs CBC & Chem 7: 07/30/18 06:47 07/30/18 06:47 Labs: Abnormal Lab Results - Last 24 Hours (Table) 07/30/18 07/30/18 Range/Units 06:47 06:47 RBC 2.65 L (4.30-5.90) m/uL Hgb 8.3 L (13.0-17.5) gm/dL Hct 25.7 L (39.0-53.0) % Chloride 111 H (98-107) mmol/L BUN 31 H (9-20) mg/dL Creatinine 6.85 H (0.66-1.25) mg/dL Calcium 5.7 L* (8.4-10.2) mg/dL Magnesium 1.5 L (1.6-2.3) mg/dL ALT 17 L (21-72) U/L Total Protein 5.0 L (6.3-8.2) g/dL Albumin 2.6 L (3.5-5.0) g/dL Assessment and Plan Plan: Assessment: 1. End-stage renal disease. Unknown baseline renal function. Creatinine was 23.6 at admission. Underlying etiology is likely to be glomerulonephritis as he does have 2+ proteinuria on UA UPC 2.1 g. Serologies have been negative. 2. Hypokalemia secondary to hypomagnesemia. Better post replacement. 3. Hypomagnesemia from poor oral intake. 4. Acute blood loss anemia with hemoglobin of 5.7 status post 2 units of blood transfusion. Hemoglobin 8.3 today. No signs of active bleeding. Maintained on Aranesp. 5. Metabolic acidosis secondary to acute kidney injury. Improved. 6. Hypocalcemia secondary to acute kidney injury. 7. Hyperparathyroidism. This is likely secondary in nature from underlying chronic kidney disease. 8. Hyperphosphatemia secondary to acute kidney injury. Improved with dialysis. Also on PhosLo. Plan: Maintain normal saline at 75 mL an hour for maintenance fluids. Patient will not be a candidate for kidney biopsy due to small size kidneys. Patient will be at a high risk for bleeding complications. Additionally, due to significant chronicity he will not be a candidate for treatment with chemotherapy and immunosuppressive medications. 2 g of IV calcium today. Continue calcitriol 1 g daily. Replace magnesium. 2 g IV today. front of house manager to help facilitate outpatient hemodialysis. Stable to be discharged home from nephrology standpoint after dialysis today.
--- NOTE | 2018-07-30 13:46 | P.DS ---
Providers Date of admission: 07/25/18 19:56 Attending physician: Eugene Apple Consults: 07/25/18 19:56 Consult Physician Routine Consulting Provider: Josue King Consult Reason/Comments: icu Do you want consulting provider notified?: Yes Consult Physician Routine Consulting Provider: Todd Arciniega Consult Reason/Comments: renalFail Do you want consulting provider notified?: Yes 07/26/18 10:14 Consult Physician Stat Consulting Provider: Yehuda Savage Consult Reason/Comments: Permanent Dialysis Cath placement Do you want consulting provider notified?: Yes Primary care physician: Stated None Hospital Course: Principal diagnosis: Acute kidney failure, on hemodialysis, acute abdominal pain, acute anemia post blood transfusion, hypoxia, hyperparathyroidism, acute metabolic acidosis, UTI 38 years old male who has not been seen by Dr. Apple at this moment with no significant past medical history comes to the ER on 07/25 with nonspecific abdominal pain, back pain, nausea vomiting, generalized fatigue for the past 4 weeks. According to the patient was doing well until he started having some cough and congestion which was initially thought to be a viral infection resolved by itself, he was not seen by any provider since he was a child. He does document significant weight loss of 40 pounds sincefor the past 2 year that wa sintentional with loss of 10 pounds in the past week. Patient was noticing right flank pain for the past year and was seen at urgent care. A chest x-ray was done which did not report any pneumonia. No further workup was done. Patient does not take any Tylenol or ibuprofen at home. He is not on any medication except for vitamin C. On evaluation in the ER, labs suggestive hemoglobin of 5.7, potassium 2.7 carbon dioxide 10, B UN 155 creatinine 22, , glucose 119, serum osmolarity 338, calcium 4.8, phosphorus 12.9 , magnesium 1.2 episodes to 89, urinalysis was obtained that suggested 182 WBCs , positive leukocyte esterase, few normal urine osmolarity of 282, increase in 1477-related acetaminophen levels were normal. Patient received 2 units of packed RBCs and 3 g of calcium, magnesium 3 g supplementation, 100 mEq of potassium, sodium bicarb. Her peak labs suggest improvement in the hemoglobin to 7.9 potassium is still low at 2.7, creatinine is high at 20 , calcium is 4, phosphorus 9.5. EKG suggests peaked T waves with prolongation of QT interval. CT abdomen was done which suggested atrophic kidneys no other abnormality seen on evaluation patient denies any headache at 3 history of kidney problems except for grandfather who had kidney disease at a young age with history of glomerular nephritis. Patient denies any history of hepatitis or HIV. He denies any history of rash except for psoriasic. No history of frothy or cola colored urine. Energy has seen the patient well recommendation on bicarb drip for the next 24 hours. Patient will be initiated on dialysis starting today after placement of the dialysis catheter. 07/27: Patient has been afebrile, heart rate running in the 70s and 80s, blood pressure 110/68, pulse ox 98% on room air. Repeat lab work reveals hemoglobin 8.5, BUN 80, creatinine 11.04, potassium 3.3, sodium 136, chloride 93. Acute hepatitis panel has been negative, TORRES negative, double-stranded DNA antibody negative total complement 46 which is normal. Patient was seen by Dr. Savage and right IJ catheter was placed. Patient underwent hemodialysis yesterday and is scheduled again today. Urine output is 40-60 mL per hour. Patient denies any complaints. Patient denies any chest pain or shortness of breath. He had no problems during the night. He did have a bowel movement this morning and denies any blood or tar in his stool stool. Patient did have 3 episodes of vomiting emesis with yellow-green this morning and Zofran since be helping. He is taking sips of water and trying to take his pills now. Plan is for hemodialysis at the dialysis center on Monday. Dr. Richmond has cleared him for transfer to same day surgery center which will be done today. 07/28: Patient is afebrile, doing very well on his family were in his room long discussion about was going on with the patient that his feeling much better since he started dialysis. Patient is seen nephrology regular basis is not symptomatic currently no further nausea vomiting is feeling much better much stronger. Patient's family start looking more optimistic for the possibility of kidney transplant. Patient has been out of the ICU and ambulating doing very well. 07/29: Patient was able to ambulate walk in the unit full round with no symptoms. Patient is not going have dialysis today his last hemodialysis was done yesterday and his number looking much better. Still mildly anemic but on Procrit currently. Objective - Vital Signs Vital signs: Vital Signs Temp 99.0 F 07/29/18 10:01 Pulse 87 07/29/18 10:01 Resp 16 07/29/18 10:02 BP 121/74 07/29/18 10:01 Pulse Ox 100 07/29/18 10:01 Intake & Output 07/28/18 07/29/18 07/29/18 18:59 06:59 18:59 Intake Total 240 1840 Balance 240 1840 Intake: Intake, IV Titration 750 Amount Sodium Chloride 0.9% 1, 750 000 ml @ 75 mls/hr IV . [id number] CALE Rx#:[id number] Oral 240 1090 Other: # Voids 2 - Exam Review of system: CONSTITUTIONAL: Well-developed no acute respiratory distress. EYES: No icterus sclerae, no conjunctivitis. EARS, NOSE, MOUTH, THROAT, and FACE: No sore throat, lymphadenopathy, carotid bruits or deformity. RESPIRATORY: No SOB cough or wheezes. CARDIOVASCULAR: No CP, Palpitation, PND, Orthopnea, or angina. GASTROINTESTINAL: No Abd pain, Nausea or vomiting, no Diarrhea or constipation, No GI Bleed, no distention or masses. GENITOURINARY: Negative for Hematuria or UTI, no kidney stones. INTEGUMENT/BREAST: Negative for any muscular injury with mild osteoarthritis.. HEMATOLOGIC/LYMPHATIC: Negative for bleed or purpura. MUSCULOSKELTAL: Negative for Myalgia or arthralgia. NEURLOGICAL: No LOC, Sz or syncope, blurred vision dizziness or abnormality.. BEHAVIORAL/PSYCH: Negative. ENDOCRINE: Negative. Physical examination: General Appearance: Alert, cooperative, no distress, appears stated age. Neck HEENT: Supple, no lymphadenopathy, no thyroid enlargement, no carotid bruits. Lungs: Clear to auscultation without crackles or wheezes no rhonchi, no deformity. Chest Wall: Chest wall normal expansion with deep inspiration no tenderness and no deformity was found on exam, no costochondral pain or discomfort. Heart: Regular rate and rhythm, S1, S2 normal, no murmur, rub or gallop. Back: Symmetric, no curvature, ROM normal, no CVA tenderness. Abdomen: Soft, non-tender, bowel sounds active all four quadrants, no masses, no organomegaly. Extremities: Extremities normal, atraumatic, no cyanosis or edema. Pulses: 2+ and symmetric. Skin: Skin color, texture, tugor normal, no rashes or lesions. Neurologic: Alert oriented x3 cranial nerves II through XII intact, no motor deficit, no abnormal balance or gait. - Labs CBC & Chem 7: 07/29/18 06:44 07/29/18 06:44 Labs: Abnormal Lab Results - Last 24 Hours (Table) 07/29/18 07/29/18 Range/Units 06:44 06:44 RBC 2.67 L (4.30-5.90) m/uL Hgb 8.3 L (13.0-17.5) gm/dL Hct 25.5 L (39.0-53.0) % BUN 21 H (9-20) mg/dL Creatinine 5.12 H (0.66-1.25) mg/dL Calcium 5.7 L* (8.4-10.2) mg/dL Assessment and Plan Plan: 1 acute kidney failure: Not clear etiology currently whether it's glomera nephritis or acute kidney injury or any type of genetic problem is not a clear currently, biopsy was not done at this point patient is doing slightly better on hemodialysis. 2 acute abdominal pain: Most likely gastroenteritis and gastric ulcer with no other finding including his acute kidney injury should not cause any major abdominal pain at this point. 3 severe anemia: Post blood transfusion patient might need to go for an EGD in the future or if any further or recurrent anemia in the meanwhile continue iron infusion and continue patient on Procrit. 4 hyperparathyroidism: Most likely secondary to kidney failure on calcium Milvia 1 g daily. 5 acute metabolic acidosis: Secondary to acute kidney failure has been much better so far. 6 severe GERD possible peptic ulcer disease: Continue patient on pantoprazole. 7 UTI: Patient still on cefazolin currently might switch him to Ceftin. CODE STATUS: Full code. Patient is feeling much better today we will do hemodialysis and will be going home his prescription were submitted to the pharmacy, patient also we'll discuss and dialysis the possibility of CAPD and furthermore his option and chance for a transplant. Patient be seen in the office within 2-3 days. Patient Condition at Discharge: Serious Plan - Discharge Summary Discharge Rx Participant: Yes New Discharge Prescriptions: New Calcitriol [Rocaltrol] 1 mcg PO DAILY #30 cap Calcium Acetate [PhosLo] 667 mg PO TID-W/MEALS #90 cap Cefuroxime [Ceftin] 250 mg PO BID #14 tab Discharge Medication List Calcitriol [Rocaltrol] 1 mcg PO DAILY #30 cap 07/30/18 [Rx] Calcium Acetate [PhosLo] 667 mg PO TID-W/MEALS #90 cap 07/30/18 [Rx] Cefuroxime [Ceftin] 250 mg PO BID #14 tab 07/30/18 [Rx] Follow up Appointment(s)/Referral(s): Eugene Apple MD [Medical Doctor] - 08/01/18 1:30 pm (With [employer]ION[facility] [employer] MANAGER) Todd Arciniega DO [STAFF PHYSICIAN] - 1 Week (Office will call with appointment ) Patient Instructions/Handouts: Chronic Kidney Disease (DC), Chronic Kidney Disease Diet (DC), End Stage Kidney Disease (DC), Perma-cath Placement (DC) Discharge Disposition: HOME SELF-CARE
[2018-07-30 16:14] VITALS: BP 116/75; PULSE 73; TEMP 97.8
== END 2018-07-30 18:15 | disposition home or self-care (01) | DRG 683 ==
LOC: EC 14:08 → 2SICU 19:56 → 4SSUR 07-27 18:48
PROVIDERS: ADMIT Internal Medicine Geriatric Medicine; ATTEND Internal Medicine Geriatric Medicine
PROC: 5A1D70Z Performance of Urinary Filtration, Intermittent, Less than 6 Hours Per Day (ICD-10-PCS; principal; 2018-07-25)
PROC: 30233N1 Transfusion of Nonautologous Red Blood Cells into Peripheral Vein, Percutaneous Approach (ICD-10-PCS; principal; 2018-07-25)
PROC: 02HV33Z Insertion of Infusion Device into Superior Vena Cava, Percutaneous Approach (ICD-10-PCS; 2018-07-26 15:56)
DX: N17.9 Acute kidney failure, unspecified (principal); I12.0 Hypertensive chronic kidney disease with stage 5 chronic kidney disease or end stage renal disease; D62 Acute posthemorrhagic anemia; E87.2 Acidosis; M62.82 Rhabdomyolysis; N39.0 Urinary tract infection, site not specified; N18.6 End stage renal disease; N25.81 Secondary hyperparathyroidism of renal origin; D63.1 Anemia in chronic kidney disease; E83.39 Other disorders of phosphorus metabolism; E83.42 Hypomagnesemia; E83.51 Hypocalcemia; E87.6 Hypokalemia; K21.9 Gastro-esophageal reflux disease without esophagitis; K25.9 Gastric ulcer, unspecified as acute or chronic, without hemorrhage or perforation; K52.9 Noninfective gastroenteritis and colitis, unspecified; N27.1 Small kidney, bilateral; R09.02 Hypoxemia; Z99.2 Dependence on renal dialysis; Z88.0 Allergy status to penicillin
CPT/HCPCS: 36415; 36558; 51702; 71045; 71046; 74018; 74176; 76770; 76937; 77001; 80048; 80053; 80074; 80306; 81001; 82140; 82150; 82330; 82550; 82553; 82570; 82803; 83036; 83516; 83520; 83605; 83690; 83735; 83930; 83935; 83970; 84100; 84132; 84133; 84156; 84165; 84439; 84443; 84484; 85025; 85027; 85610; 85652; 85730; 86038; 86160; 86162; 86225; 86255; 86334; 86335; 86850; 86900; 86901; 86920; 87205; 87535; 90935; 93005; 96361; 96365; 96375; 99291

== ENCOUNTER → 2018-09-22 | Outpatient (CLI) | payer MEDICAID ==
[2018-09-22 12:00] LABS: Potassium 3.6 mmol/L (3.5-5.1)
[2018-09-22 12:11] LABS: Basophils # (A) 0.1 k/uL (0-0.2); Basophils % (A) 1 %; Eosinophils # (A) 0.3 k/uL (0-0.7); Eosinophils % (A) 4 %; HCT 35.7 % (39.0-53.0); Lymphocytes # (A) 2.2 k/uL (1.0-4.8); Lymphocytes % (A) 27 %; MCH 32.1 pg (25.0-35.0); MCHC 32.1 g/dL (31.0-37.0); Macrocytosis Slight; Mean Platelet Volume 6.9; Monocytes # (A) 0.5 k/uL (0-1.0); Monocytes % (A) 7 %; Neutrophils # (A) 4.7 k/uL (1.3-7.7); Neutrophils % (A) 59 %; RBC 3.58 m/uL (4.30-5.90); RDW 14.2 % (11.5-15.5)
[2018-09-22 12:17] LABS: HGB 11.5 gm/dL (13.0-17.5)
[2018-09-22 12:18] LABS: Platelet Count 386 k/uL (150-450)
== END | disposition home or self-care (01) ==
LOC: LABPAT 11:01
PROVIDERS: ATTEND Surgery Vascular Surgery
DX: Z01.812 Encounter for preprocedural laboratory examination (principal)
CPT/HCPCS: 80051; 85025; 86850; 86900; 86901

== ENCOUNTER 2018-09-25 07:51 | Day surgery (SDC) | payer MEDICAID ==
--- NOTE | 2018-09-24 11:05 | HP ---
HISTORY AND PHYSICAL Patient has history of chronic renal failure. Patient had a right internal jugular vein catheter placed and having dialysis 3 times a week. The patient had venous mapping done. His cephalic vein at the cubital fossa is 3.8, mid arm is 2.5, and basilic vein 2.2 and to the cubital fossa and upper arm is 3.1. The brachial radial pulses are present. MEDICAL HISTORY: History of chronic renal failure. PERSONAL HISTORY: Allergic to PENICILLIN. The patient having dialysis Monday, Monday, and Monday. PHYSICAL EXAMINATION: On examination, neck is supple. Trachea central. Chest is clear to auscultation. ABDOMEN: Soft, nontender. Brachial radial pulses are present. IMPRESSION: Acute chronic renal failure. PLAN: Creation of the fistula left arm. Risks and complications of bleeding, infection, thrombosis has been discussed. MMODL / IJN: [id number] /
[~2018-09-25 07:51] MED LIST: DEXAMETHASONE SOD PHOSPHATE 10 MG/ML 1 ML VIAL IV ONE; HYDROmorphone 0.5 MG/0.5 ML SYRINGE IVP PRN; MIDAZOLAM (PF) 2 MG/2 ML VIAL IV PRN; ONDANSETRON 4 MG/2 ML VIAL IVP ONE; ceFAZolin IN SWFI 2 GM/20 ML SYRINGE IVP ONE
[2018-09-25] MEDS ORDERED: SODIUM CHLORIDE 0.9% 1,000 ML IV ONE (08:27)
[2018-09-25] MEDS ORDERED: LIDOCAINE 1% 20 ML VIAL (10MG/ML) FOR IV START INTRADERMA ONE (08:31)
[2018-09-25] MEDS ORDERED: MIDAZOLAM 2 MG/2 ML VIAL IV ONE (08:53)
[2018-09-25] MEDS ORDERED: PAPAVERINE 30 MG/ML 2 ML VIAL MISCELLANE STA (08:56)
[2018-09-25] MEDS ORDERED: SODIUM CHLORIDE 0.9% 500 ML 500 ML with HEPARIN SODIUM,PORCINE 5,000 UNIT IV ONE ×2 (09:00)
[2018-09-25] MEDS ORDERED: NEOSTIGMINE 1 MG/ML 10 ML VIAL ONE (09:10)
[2018-09-25] MEDS ORDERED: MIDAZOLAM 2 MG/2 ML VIAL ONE (09:10)
[2018-09-25] MEDS ORDERED: HEPARIN SODIUM,PORCINE 5,000 UNIT/ML 1 ML VIAL ONE (09:10)
[2018-09-25] MEDS ORDERED: fentaNYL (PF) 50 MCG/ML 2 ML AMP ONE (09:10)
[2018-09-25] MEDS ORDERED: ROCURONIUM BROMIDE 10 MG/ML 10 ML VIAL IV ONE (09:10)
[2018-09-25] MEDS ORDERED: PROTAMINE SULFATE 10 MG/ML 5 ML VIAL IV ONE (09:10)
[2018-09-25] MEDS ORDERED: GLYCOPYRROLATE 0.2 MG/ML 2 ML VIAL ONE (09:10)
[2018-09-25] MEDS ORDERED: PROPOFOL 10 MG/ML 20 ML VIAL IV ONE (09:10)
[2018-09-25] MEDS ORDERED: ePHEDrine SULFATE/0.9% NACL/PF 50 MG/5 ML SYRINGE IV ONE (09:10)
[2018-09-25] MEDS ORDERED: LIDOCAINE 1% INJ 10MG/ML (20 ML MDV) ONE (09:10)
[2018-09-25] MEDS ORDERED: PAPAVERINE 30 MG/ML 2 ML VIAL MISCELLANE ONE ×2 (09:50)
[2018-09-25] MEDS ORDERED: GELATIN SPONGE,ABSORB (LARGE) 1 EACH SPONGE TOPICAL ONE ×2 (11:44→11:48)
[2018-09-25] MEDS ORDERED: THROMBIN (BOVINE) 5,000 UNIT VIAL TOPICAL ONE (11:45)
--- NOTE | 2018-09-25 13:11 | OP ---
OPERATIVE REPORT PREOPERATIVE DIAGNOSIS: Acute and chronic renal failure. PROCEDURE: Creation of the fistula using cubital vein to the end-to-side anastomosis with brachial artery both the cephalic vein. DESCRIPTION OF PROCEDURE: This patient was brought to the operating room under anesthesia. Left arm was prepped and draped in the usual sterile manner. A incision was made at the cubital fossa, deepened through skin, fat, and fascia. Dissection was carried out to dissect the cephalic and basilic vein which were dissected and vessel loops were placed around it. The branches of cephalic vein were tied with 3-0 silk. Then the basilic vein and cephalic vein was identified. Cephalic vein dissected proximally. After that, we found the dissection was carried out for the brachial artery. Brachial artery were dissected. Vessel loop was placed around it. Brachial artery was small in caliber, was about the size of 3 mm to 4 mm. Five thousand systemic heparin was given. The cubital vein was divided distally and tied with 0 silk and cephalic and basilic vein were dilated with hydrostatic pressure of the saline and then lamp cleaner vein was divided. The vein was prepared for anastomosis. We did end-to-side anastomosis using 6-0 Prolene running suture, flushed in the usual manner and the clamps were released. There was good thrill present at the graft. Hemostasis was well controlled. Incision was closed with Vicryl and nylon and 4-0 nylon with interrupted suture. Dressing applied. Patient had a good thrill. Pulses were present. The patient tolerated the procedure well. MMODL / IJN: [id number] /
[2018-09-25 13:38] VITALS: BMI 22.0
--- NOTE | 2018-09-25 15:08 | P.CONS ---
History of Present Illness - Reason for Consult Consult date: 09/25/18 Medical management - History of Present Illness This is a 38-year-old male patient of Dr. Chavez with past medical h istory of renal failure, end-stage renal disease currently on hemodialysis Monday. This was diagnosed in July of this year during hospitalization. Underlying etiology is likely glomerulonephritis. Patient has been brought in by Dr. Savage for AV fistula to the left arm. Patient is seen postop and has had no postop complications. Consult is in place with Dr. Arciniega and patient is to have hemodialysis tomorrow. Medication reconciliation has been reviewed. Review of Systems All systems: negative Constitutional: Denies chills, Denies fever Eyes: denies blurred vision, denies pain Ears, nose, mouth and throat: Denies headache, Denies sore throat Cardiovascular: Denies chest pain, Denies shortness of breath Respiratory: Denies cough Gastrointestinal: Denies abdominal pain, Denies diarrhea, Denies nausea, Denies vomiting Musculoskeletal: Denies myalgias Integumentary: Denies pruritus, Denies rash Neurological: Denies numbness, Denies weakness Psychiatric: Denies anxiety, Denies depression Endocrine: Denies fatigue, Denies weight change Past Medical History Past Medical History: Renal Disease Additional Past Medical History / Comment(s): End-stage renal disease, hemodialysis-catheter rt side of chest History of Any Multi-Drug Resistant Organisms: None Reported Past Surgical History: No Surgical Hx Reported Additional Past Surgical History / Comment(s): catheter rt side of chest, AV fistula left arm Past Anesthesia/Blood Transfusion Reactions: No Reported Reaction Additional Past Anesthesia/Blood Transfusion Reaction / Comm: no previous anesthesia Past Psychological History: No Psychological Hx Reported Smoking Status: Never smoker Past Alcohol Use History: None Reported Additional Past Alcohol Use History / Comment(s): Patient is a lifelong nonsm oker, no marijuana use, no illicit drug use, no alcohol use. He lives at home with his and daughter. Past Drug Use History: None Reported - Past Family History Father Additional Family Medical History / Comment(s): Grandfather had glomerulonephritis and was on dialysis by the age of 35 no other significant past medical history in the family. Father has history of hypertension and myocardial infarction 3. Mother Additional Family Medical History / Comment(s): Mother is alive with history of hypertension. Brother(s) Additional Family Medical History / Comment(s): Patient has 2 brothers. One brother has no major medical problems. One brother has Crohn's. Medications and Allergies Home Medications Medication Instructions Recorded Confirmed Type Calcitriol [Rocaltrol] 1 mcg PO DAILY #30 cap 07/30/18 09/25/18 Rx Calcium Acetate [PhosLo] 667 mg PO BID-W/MEALS 09/20/18 09/25/18 History Cholecalciferol [Vitamin D3] 2,000 unit PO DAILY 09/20/18 09/25/18 History Multivitamins, Thera [Multivitamin 1 tab PO DAILY 09/20/18 09/25/18 History (formulary)] Allergies Allergy/AdvReac Type Severity Reaction Status Date / Time Penicillins Allergy Rash/Hives Verified 09/25/18 08:12 Physical Exam Vitals: Vital Signs Temp Pulse Pulse Resp BP BP Pulse Ox 09/25/18 13:36 97.9 F 86 16 101/54 100 09/25/18 13:15 89 16 98/53 100 09/25/18 13:00 91 16 99/51 100 09/25/18 12:45 90 16 101/51 100 09/25/18 12:31 98.2 F 106 H 12 98/52 100 09/25/18 08:26 98 F 83 16 116/64 100 Intake and Output 09/24/18 09/25/18 09/25/18 22:59 06:59 14:59 Intake Total 726 Output Total 50 Balance 676 Intake: IV 726 Output: Estimated Blood Loss 50 Gen: This is a thin 38-year-old male. He is resting in bed and appears to be comfortable and in no acute distress. HEENT: Head is atraumatic, normocephalic. Pupils equal, round. Sclerae is anicteric. NECK: Supple. No JVD. No lymphadenopathy. No thyromegaly. LUNGS: Clear to auscultation. No wheezes or rhonchi. No intercostal retractions. HEART: Regular rate and rhythm. No murmur. Dialysis catheter to the right upper chest wall. ABDOMEN: Soft. Bowel sounds are present. No masses. No tenderness. EXTREMITIES: No pedal edema. No calf tenderness. Dorsalis pedis +2 bilaterally. Large dressing in place to the left forearm. NEUROLOGICAL: Patient is awake, alert and oriented x3. Cranial nerves 2 through 12 are grossly intact. Results CBC & Chem 7: 09/25/18 09:00 Assessment and Plan Plan: 1. End-stage renal disease on hemodialysis. AV fistula with Dr. Savage. Consult with Dr. Arciniega. Patient is normally on hemodialysis Monday. Continue calcitriol 1 g daily, PhosLo 667 mg twice daily, vitamin D3. 2. Hyperphosphatemia secondary to renal disease. Continue PhosLo 3. GI prophylaxis. Pepcid. 4. DVT prophylaxis. LETTY lone and SCDs.. Discharge plan: Return home Impression and plan of care have been directed as dictated by the signing physician. Giulia Jiménez nurse practitioner acting as scribe for signing physi rajat.
[2018-09-25] MEDS ORDERED: CALCIUM ACETATE 667 MG CAP PO SCH (17:30)
[2018-09-25] MEDS: LACTATED RINGERS 1,000 ML IV SCH (20:39)
[2018-09-25] MEDS ORDERED: SODIUM CHLORIDE 0.9% 500 ML 500 ML IV ONE (21:57)
[2018-09-25] MEDS ORDERED: SODIUM CHLORIDE 0.9% 1,000 ML IV SCH (22:00)
[2018-09-26] MEDS: LACTATED RINGERS 1,000 ML IV SCH (05:28)
[2018-09-26] MEDS ORDERED: CALCITRIOL 0.25 MCG CAP PO SCH (09:00)
[2018-09-26] MEDS ORDERED: CHOLECALCIFEROL 1,000 UNIT TAB PO SCH (09:00)
[2018-09-26] MEDS ORDERED: FAMOTIDINE 20 MG TAB PO SCH (09:00)
--- NOTE | 2018-09-26 09:39 | DS ---
DISCHARGE SUMMARY PREOPERATIVE DIAGNOSE: Acute chronic failure. PROCEDURE: Correction of the fistula. Using cephalobasilic fistula with the cubital vein, anastomosis to the brachial artery with end-to-side resuming course. This patient has history of chronic renal failure. Patient is having dialysis of the right internal jugular vein. Patient had a created fistula. We used the cubital vein which is filling both the cephalic and basilic vein with end-to-side anastomosis to the brachial artery. Postoperative was uneventful. Patient was seen on medical consult with Dr. Apple and Nephrology by Dr. Lawson and Dr. Ly. The patient is having catheter this morning. We have changed the dressing. Patient has excellent thrill in the fistula. Incision site is healing good. Patient has a decent radial pulse. PLAN: Patient will go home today. Will follow in my office on for removal of the stitches. MMODL / IJN: [id number] /
[2018-09-26 11:33] VITALS: BP 107/65; PULSE 82; RESP 16; TEMP 98.8
[2018-09-26] MEDS ORDERED: MULTIVITAMINS, THERA 1 EACH TAB PO SCH (12:00)
--- NOTE | 2018-09-26 12:12 | P.NPCON ---
History of Present Illness - Reason for Consult end stage renal disease - History of Present Illness Reason for consultation: End-stage renal disease History of present illness: Patient is a 38-year-old male seen in renal consultation for end-stage renal disease. He is maintained on hemodialysis on a Monday schedule via permacath. He is currently seen while undergoing hemodialysis. Denies chest pain or shortness of breath. Patient presented to the hospital for elective AV fistula surgery which was done yesterday. He is doing well. Hemodynamically stable. No nausea or vomiting. He does still make urine. No chest pain or shortness of breath. Oral intake is good. No fever or chills. No active complaints at this time. Vital signs are stable. General: The patient appeared well nourished and normally developed. HEENT: Head exam is unremarkable. Neck is without jugular venous distension. LUNGS: Lungs are clear to auscultation and percussion. Breath sounds decreased. HEART: Rate and Rhythm are regular. First and second heart sounds normal. No murmurs, rubs or gallops. ABDOMEN: Abdominal exam reveals normal bowel sounds. Non-tender and non- distended. No evidence of peritonitis. EXTREMITITES: No clubbing, cyanosis, or edema. Past Medical History Past Medical History: Renal Disease Additional Past Medical History / Comment(s): End-stage renal disease, hemodialysis-catheter rt side of chest History of Any Multi-Drug Resistant Organisms: None Reported Past Surgical History: No Surgical Hx Reported Additional Past Surgical History / Comment(s): catheter rt side of chest, AV fistula left arm Past Anesthesia/Blood Transfusion Reactions: No Reported Reaction Additional Past Anesthesia/Blood Transfusion Reaction / Comment(s): no previous anesthesia Past Psychological History: No Psychological Hx Reported Smoking Status: Never smoker Past Alcohol Use History: None Reported Additional Past Alcohol Use History / Comment(s): Patient is a lifelong nonsmoker, no marijuana use, no illicit drug use, no alcohol use. He lives at home with his and daughter. Past Drug Use History: None Reported - Past Family History Father Additional Family Medical History / Comment(s): Grandfather had gl omerulonephritis and was on dialysis by the age of 35 no other significant past medical history in the family. Father has history of hypertension and myocardial infarction 3. Mother Additional Family Medical History / Comment(s): Mother is alive with history of hypertension. Brother(s) Additional Family Medical History / Comment(s): Patient has 2 brothers. One brother has no major medical problems. One brother has Crohn's. Medications and Allergies Home Medications Medication Instructions Recorded Confirmed Type Calcitriol [Rocaltrol] 1 mcg PO DAILY #30 cap 07/30/18 09/25/18 Rx Calcium Acetate [PhosLo] 667 mg PO BID-W/MEALS 09/20/18 09/25/18 History Cholecalciferol [Vitamin D3] 2,000 unit PO DAILY 09/20/18 09/25/18 History Multivitamins, Thera [Multivitamin 1 tab PO DAILY 09/20/18 09/25/18 History (formulary)] Allergies Allergy/AdvReac Type Severity Reaction Status Date / Time Penicillins Allergy Rash/Hives Verified 09/25/18 08:12 Physical Exam Vitals: Vital Signs Temp Pulse Pulse Resp BP Pulse Ox 09/26/18 08:00 82 16 09/26/18 07:00 98.8 F 82 16 107/65 99 09/26/18 03:03 18 09/26/18 01:05 98.5 F 97 16 114/53 98 09/26/18 00:17 98 112/51 09/25/18 21:41 100 83/45 09/25/18 19:19 98.0 F 87 18 101/47 99 09/25/18 16:00 78 16 09/25/18 15:00 97.8 F 78 16 95/46 100 09/25/18 13:36 97.9 F 86 16 101/54 100 09/25/18 13:15 89 16 98/53 100 09/25/18 13:00 91 16 99/51 100 09/25/18 12:45 90 16 101/51 100 09/25/18 12:31 98.2 F 106 H 12 98/52 100 Intake and Output 09/25/18 09/26/18 09/26/18 22:59 06:59 14:59 Other: Voiding Method Toilet Toilet Results - Lab Results 09/25/18 09:00 Assessment and Plan Plan: Assessment: 1. End-stage renal disease maintained on hemodialysis on a Monday schedule for a permacath. 2. Status post AV fistula surgery on September 25. 3. Chronic kidney disease mineral bone disease maintained on calcitriol and PhosLo. Plan: Currently seen while undergoing hemodialysis. Next treatment on Monday. Patient is also in the process for being listed for kidney transplant at [facility]. Stable to be discharged home today after dialysis. Thank you for the consultation. I will continue to follow the patient with you during his hospital stay.
--- NOTE | 2018-09-26 14:54 | P.PN ---
Subjective Progress Note Date: 09/26/18 This is a 38-year-old male patient of Dr. Apple with past medical history of renal failure, end-stage renal disease currently on hemodialysis Monday. This was diagnosed in July of this year during hospitalization. Underlying etiology is likely glomerulonephritis. Patient has been brought in by Dr. Savage for AV fistula to the left arm. Patient is seen postop and has had no postop complications. Consult is in place with Dr. Arciniega and patient is to have hemodialysis tomorrow. Medication reconciliation has been reviewed. 09/26: Patient has been afebrile, heart rate in the 90s to 100, pulse ox 90% on room air, blood pressure 114/53. Patient states the site on his left arm is a little tender today. He is undergoing hemodialysis. Patient does not know when he can start using the AV fistula. He is following with nephrology and planning to get on the transplant list. Patient has been cleared for discharge by Dr. Savage. Patient is being discharged today in stable condition. Medication reconciliation has been reviewed. Review of Systems All systems: negative Constitutional: Denies chills, Denies fever Eyes: denies blurred vision, denies pain Ears, nose, mouth and throat: Denies headache, Denies sore throat Cardiovascular: Denies chest pain, Denies shortness of breath Respiratory: Denies cough Gastrointestinal: Denies abdominal pain, Denies diarrhea, Denies nausea, Denies vomiting Musculoskeletal: Denies myalgias Integumentary: Denies pruritus, Denies rash, wound to the left arm Neurological: Denies numbness, Denies weakness Psychiatric: Denies anxiety, Denies depression Endocrine: Denies fatigue, Denies weight change Objective - Vital Signs Vital signs: Vital Signs Temp 98.8 F 09/26/18 07:00 Pulse 82 09/26/18 08:00 Resp 16 09/26/18 08:00 BP 107/65 09/26/18 07:00 Pulse Ox 99 09/26/18 07:00 Intake & Output 09/25/18 09/26/18 09/26/18 18:59 06:59 18:59 Intake Total 726 Output Total 50 Balance 676 Intake: IV 726 Output: Estimated Blood Loss 50 Other: Voiding Method Toilet Toilet - Exam Gen: This is a thin 38-year-old male. He is resting in bed and appears to be comfortable and in no acute distress. HEENT: Head is atraumatic, normocephalic. Pupils equal, round. Sclerae is anicteric. NECK: Supple. No JVD. No lymphadenopathy. No thyromegaly. LUNGS: Clear to auscultation. No wheezes or rhonchi. No intercostal retractions. HEART: Regular rate and rhythm. No murmur. Dialysis catheter to the right upper chest wall. ABDOMEN: Soft. Bowel sounds are present. No masses. No tenderness. EXTREMITIES: No pedal edema. No calf tenderness. Dorsalis pedis +2 bilaterally. left forearm tenderness. NEUROLOGICAL: Patient is awake, alert and oriented x3. Cranial nerves 2 through 12 are grossly intact. - Labs CBC & Chem 7: 09/25/18 09:00 Assessment and Plan Plan: 1. End-stage renal disease on hemodialysis. AV fistula with Dr. Savage. Consult with Dr. Arciniega. Patient is normally on hemodialysis Monday. Continue calcitriol 1 g daily, PhosLo 667 mg twice daily, vitamin D3. Patient to be discharged home today after hemodialysis is completed. 2. Hyperphosphatemia secondary to renal disease. Continue PhosLo 3. GI prophylaxis. Pepcid. 4. DVT prophylaxis. LETTY scott and AALIYAHs.. Discharge plan: Return home today Impression and plan of care have been directed as dictated by the signing physician. Giulia Jiménez nurse practitioner acting as scribe for signing physician.
== END 2018-09-26 11:40 | disposition home or self-care (01) ==
LOC: OR 07:51 → 4SSUR 12:12 → OR 09-26 11:40
PROVIDERS: ATTEND Surgery Vascular Surgery
DX: N18.6 End stage renal disease (principal); Z99.2 Dependence on renal dialysis; Z88.0 Allergy status to penicillin; E83.39 Other disorders of phosphorus metabolism; Z79.899 Other long term (current) drug therapy
CPT/HCPCS: 36821; 84132; C1757; J2250; J2720; J1644; J1100; J2710; J2405; J2001; J3010; J2440; J2704; J0690; 86850; 86900; 86901

== ENCOUNTER → 2019-03-14 | Outpatient (CLI) | payer MEDICAID, MEDICARE ==
[2019-03-15 13:32] LABS: APTT 37 Sec(s) (<43); DRVVT 1:1 Mix 38 Sec(s) (<44); Dilute Russell Viper Venom 47 Sec(s) (<44)
== END | disposition home or self-care (01) ==
LOC: LABWHC1 11:00
PROVIDERS: ATTEND Allergy & Immunology
DX: N18.6 End stage renal disease (principal); Z76.82 Awaiting organ transplant status
CPT/HCPCS: 36415; 85613; 85730

== ENCOUNTER 2019-08-28 12:24 | Emergency (ER) | payer MEDICAID, MEDICARE ==
[2019-08-28 12:30] VITALS: TEMP 97.9
--- NOTE | 2019-08-28 12:56 | ED ---
General Adult HPI - General Chief complaint: Recheck/Abnormal Lab/Rx Stated complaint: Phosphorus level Time Seen by Provider: 08/28/19 12:32 Source: patient Mode of arrival: ambulatory Limitations: no limitations - History of Present Illness Initial comments: Dictation was produced using [employer] dictation software. please excuse any grammatical, word or spelling errors. Chief Complaint: 39-year-old male presents with instruction from respiratory, get IV phosphorus. History of Present Illness: Patient is a 39-year-old male he is approximately one week postop from kidney transplant done at [facility]. He should states that he had labs drawn today. He was told to come to the emergency department for IV phosphorus infusion. They spoke with nurse practitioner Rosio Galo. Patient feels well he has no specific complaints at this time. Patient has no complaint about his surgical site. Patient reports that he is on all appropriate medications. The ROS documented in this emergency department record has been reviewed and confirmed by me. Those systems with pertinent positive or negative responses have been documented in the HPI. All other systems are other negative and/or noncontributory. PHYSICAL EXAM: General Impression: Alert and oriented x3, not in acute distress HEENT: Normocephalic atraumatic, extra-ocular movements intact, pupils equal and reactive to light bilaterally, mucous membranes moist. Cardiovascular: Heart regular rate and rhythm, S1&S2 audible, no murmurs, rubs or gallops Chest: Lungs clear to auscultation bilaterally, no rhonchi, no wheeze, no rales Abdomen: Bowel sounds present, abdomen soft, non-tender, non-distended, no organomegaly, surgical sites clean dry and intact Musculoskeletal: Pulses present and equal in all extremities, no peripheral edema Motor: no focal deficits noted Neurological: CN II-XII grossly intact, no focal motor or sensory deficits noted Skin: Intact with no visualized rashes Psych: Normal affect and mood ED course: 39-year-old male told to come to the emergency department for low phosphorus vital signs upon arrival are within acceptable limits. Patient feels well. He has no specific medical complaints. Discussed patient case with nurse practitioner Rosio Galo ([phone]). She reports that patient has phosphorus less than 1. She requested patient be given IV phosphorus and be discharged home. Laboratory evaluation obtained. Hemoglobin and platelet which appears to be around patient's baseline. 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 Metabolic panel shows findings within acceptable limits. Creatinine is 1.06. Ionized calcium measures at 4.4, phosphorus 1.1, magnesium 1.5. According to Rosio, nurse practitioner fast she requested that patient be given 20 mmol of IV phosphorus. Patient given 20 mmol of IV phosphorus over the course of 4 hours. Patient also given magnesium oxide tab and calcium gluconate. Discussed patient case with Dr. Apple and Dr. Lawson who are aware of patient. Dr. Lawson is agree able with electrolytes replacement. She believes option open to patient if he wants to come to dialysis Center to have his labs drawn for recheck of phosphorus tomorrow at 8 AM. Patient states he has an appointment at [facility] to have his phosphorus checked on Monday. Patient will be discharged. He understands that he should seek immediate medical attention if he starts to develop symptoms. Patient states he feels well at this time. He denies any symptoms. He is agreeable to seek medical attention if he feels any symptoms. Patient has oral phosphorus ordered by his transplant doctor. - Related Data Home Medications Medication Instructions Recorded Confirmed Acyclovir [Zovirax] 400 mg PO BID 08/28/19 08/28/19 Docusate [Colace] 100 mg PO BID PRN 08/28/19 08/28/19 K-Phos Neutral 155/852/130 Mg 3 tab PO QID 08/28/19 08/28/19 Mycophenolate Sodium [Mycophenolic 720 mg PO Q12H 08/28/19 08/28/19 Acid] Omeprazole [PriLOSEC] 20 mg PO DAILY 08/28/19 08/28/19 Sulfamethoxazole/Trimethoprim 1 tab PO DAILY 08/28/19 08/28/19 [Bactrim DS 800-160 mg] Tacrolimus [Envarsus Xr] 8 mg PO DAILY 08/28/19 08/28/19 predniSONE 25 mg PO DAILY 08/28/19 08/28/19 traMADol HCL [Ultram] 50 mg PO Q8H PRN 08/28/19 08/28/19 Allergies Allergy/AdvReac Type Severity Reaction Status Date / Time Penicillins Allergy Rash/Hives Verified 08/28/19 13:09 Review of Systems ROS Statement: Those systems with pertinent positive or pertinent negative responses have been documented in the HPI. ROS Other: All systems not noted in ROS Statement are negative. Past Medical History Past Medical History: Renal Disease Additional Past Medical History / Comment(s): End-stage renal disease, hemodialysis-catheter rt side of chest History of Any Multi-Drug Resistant Organisms: None Reported Past Surgical History: No Surgical Hx Reported Additional Past Surgical History / Comment(s): catheter rt side of chest, AV fistula left arm kidney transplant Past Anesthesia/Blood Transfusion Reactions: No Reported Reaction Additional Past Anesthesia/Blood Transfusion Reaction / Comment(s): no previous anesthesia Past Psychological History: No Psychological Hx Reported Smoking Status: Never smoker Past Alcohol Use History: None Reported Past Drug Use History: None Reported - Past Family History Father Additional Family Medical History / Comment(s): Grandfather had glomerulonephritis and was on dialysis by the age of 35 no other significant past medical history in the family. Father has history of hypertension and myocardial infarction 3. Mother Additional Family Medical History / Comment(s): Mother is alive with history of hypertension. Brother(s) Additional Family Medical History / Comment(s): Patient has 2 brothers. One brother has no major medical problems. One brother has Crohn's. General Exam Limitations: no limitations Course Vital Signs 08/28/19 08/28/19 12:26 13:46 Temperature 97.9 F Pulse Rate 99 96 Respiratory 18 18 Rate Blood Pressure 158/74 125/74 O2 Sat by Pulse 100 100 Oximetry Medical Decision Making - Lab Data Result diagrams: 08/28/19 12:40 08/28/19 12:40 Lab Results 08/28/19 08/28/19 Range/Units 12:40 12:40 WBC 9.9 (3.8-10.6) k/uL RBC 2.80 L (4.30-5.90) m/uL Hgb 9.8 L (13.0-17.5) gm/dL Hct 29.1 L (39.0-53.0) % MCV 104.0 H (80.0-100.0) fL MCH 35.1 H (25.0-35.0) pg MCHC 33.7 (31.0-37.0) g/dL RDW 15.4 (11.5-15.5) % Plt Count 353 (150-450) k/uL Neutrophils % 89 % Lymphocytes % 7 % Monocytes % 3 % Eosinophils % 1 % Basophils % 0 % Neutrophils # 8.8 H (1.3-7.7) k/uL Lymphocytes # 0.7 L (1.0-4.8) k/uL Monocytes # 0.3 (0-1.0) k/uL Eosinophils # 0.1 (0-0.7) k/uL Basophils # 0.0 (0-0.2) k/uL Macrocytosis Moderate Sodium 137 (137-145) mmol/L Potassium 3.6 (3.5-5.1) mmol/L Chloride 109 H (98-107) mmol/L Carbon Dioxide 20 L (22-30) mmol/L Anion Gap 8 mmol/L BUN 19 (9-20) mg/dL Creatinine 1.06 (0.66-1.25) mg/dL Est GFR (CKD-EPI)AfAm >90 (>60 ml/min/1.73 sqM) Est GFR (CKD-EPI)NonAf 90 (>60 ml/min/1.73 sqM) Glucose 128 H (74-99) mg/dL Calcium 8.7 (8.4-10.2) mg/dL Ionized Calcium Hans 4.4 L (4.5-5.3) mg/dL Phosphorus 1.1 L (2.5-4.5) mg/dL Magnesium 1.5 L (1.6-2.3) mg/dL Disposition Clinical Impression: Electrolyte abnormality Disposition: HOME SELF-CARE Condition: Good Instructions (If sedation given, give patient instructions): Sodium Phosphate P 32 (By injection) Additional Instructions: Follow-up with labs for recheck of phosphorus level whether it be at Dr. Lawson's dialysis center or at [facility]. Electrolyte abnormalities can be associated with really vague and wide ranging symptoms. Please seek medical attention with any symptoms whatsoever. Is patient prescribed a controlled substance at d/c from ED?: No Referrals: Eugene Apple MD [Primary Care Provider] - 1-2 days Time of Disposition: 16:04
[2019-08-28 12:59] LABS: Ionized Calcium 4.4 mg/dL (4.5-5.3)
[2019-08-28 13:01] LABS: Basophils % (A) 0 %; Eosinophils # (A) 0.1 k/uL (0-0.7); Eosinophils % (A) 1 %; HCT 29.1 % (39.0-53.0); HGB 9.8 gm/dL (13.0-17.5); Lymphocytes # (A) 0.7 k/uL (1.0-4.8); Lymphocytes % (A) 7 %; MCH 35.1 pg (25.0-35.0); MCHC 33.7 g/dL (31.0-37.0); Macrocytosis Moderate; Mean Platelet Volume 7.1; Monocytes # (A) 0.3 k/uL (0-1.0); Monocytes % (A) 3 %; Neutrophils # (A) 8.8 k/uL (1.3-7.7); Neutrophils % (A) 89 %; Platelet Count 353 k/uL (150-450); RDW 15.4 % (11.5-15.5); WBC 9.9 k/uL (3.8-10.6)
[2019-08-28 13:12] LABS: African American GFR (CKD) >90 (>60 ml/min/1.73 sqM); Anion Gap 8 mmol/L; Blood Urea Nitrogen 19 mg/dL (9-20); Calcium 8.7 mg/dL (8.4-10.2); Carbon Dioxide 20 mmol/L (22-30); Chloride 109 mmol/L (98-107); Glucose 128 mg/dL (74-99); Magnesium 1.5 mg/dL (1.6-2.3); Non-African American GFR(CKD) 90 (>60 ml/min/1.73 sqM); Phosphorus 1.1 mg/dL (2.5-4.5); Potassium 3.6 mmol/L (3.5-5.1); Sodium 137 mmol/L (137-145)
[2019-08-28] MEDS ORDERED: Phosphorus Replacement Protoco 1 EACH MISC MISCELLANE PRN (13:17)
[2019-08-28] MEDS ORDERED: CALCIUM GLUCONATE 1 GM in SODIUM CHLORIDE 0.9% 100 ML IVPB ONE (13:18)
[2019-08-28] MEDS ORDERED: MAGNESIUM OXIDE 400 MG TAB PO STA (13:18)
[2019-08-28] MEDS: SODIUM PHOSPHATE 10 MMOL in SODIUM CHLORIDE 0.9% 250 ML IVPB SCH ×2 (13:37→15:54)
[2019-08-28 18:00] VITALS: BP 138/82; PULSE 94; RESP 20
== END 2019-08-28 17:59 | disposition home or self-care (01) ==
LOC: EC 12:24
DX: E87.8 Other disorders of electrolyte and fluid balance, not elsewhere classified (principal); D53.1 Other megaloblastic anemias, not elsewhere classified; N18.6 End stage renal disease; Z88.0 Allergy status to penicillin; Z79.52 Long term (current) use of systemic steroids; Z79.899 Other long term (current) drug therapy; Z99.2 Dependence on renal dialysis; Z94.0 Kidney transplant status
CPT/HCPCS: 36415; 80048; 82330; 83735; 84100; 85025; 99283; 96365; 96366; 96367; J0610

== ENCOUNTER → 2019-10-21 | Outpatient (CLI) | payer MEDICAID, MEDICARE | END | disposition home or self-care (01) | LOC: LABWHC1 08:14 | PROVIDERS: ATTEND Internal Medicine | DX: Z53.9 Procedure and treatment not carried out, unspecified reason (principal) ==

== ENCOUNTER → 2020-01-10 | Outpatient (CLI) | payer MEDICAID, MEDICARE ==
[2020-01-10 11:44] LABS: African American GFR (CKD) 51.1 (60.0-200.0); Anion Gap 11.8 mmol/L (4.00-12.00); BUN/Creat Ratio 8.95 Ratio (12.00-20.00); Calcium 7.6 mg/dL (8.7-10.3); Carbon Dioxide 24.2 mmol/L (21.6-31.8); Non-African American GFR(CKD) 44.1 (60.0-200.0); Potassium 3.7 mmol/L (3.5-5.5)
== END | disposition home or self-care (01) ==
LOC: LABWHC1 07:04
PROVIDERS: ATTEND Internal Medicine Nephrology
DX: Z48.22 Encounter for aftercare following kidney transplant (principal); Z94.0 Kidney transplant status
CPT/HCPCS: 36415; 80048; 80197

== ENCOUNTER → 2020-02-03 | Outpatient (CLI) | payer MEDICAID, MEDICARE ==
[2020-02-03 17:20] LABS: Albumin 3.9 g/dL (3.80-4.90); Albumin/Globulin Ratio 2.17 (1.60-3.17); BUN/Creat Ratio 10.5 Ratio (12.00-20.00); Calcium 8.5 mg/dL (8.7-10.3); Chol/HDL Ratio 3.65; Globulin 1.8 g/dL (1.6-3.3); Non-African American GFR(CKD) 41.4 (60.0-200.0); Potassium 4.3 mmol/L (3.5-5.5); Total Bilirubin 0.5 mg/dL (0.2-1.2); Total Protein 5.7 g/dL (6.2-8.2)
== END | disposition home or self-care (01) ==
LOC: LABWHC1 07:04
PROVIDERS: ATTEND Internal Medicine Geriatric Medicine
DX: E21.3 Hyperparathyroidism, unspecified (principal); R79.9 Abnormal finding of blood chemistry, unspecified
CPT/HCPCS: 36415; 80053; 80061; 83036; 84439; 84443

== ENCOUNTER → 2020-02-07 | Outpatient (CLI) | payer MEDICAID, MEDICARE | END | disposition home or self-care (01) | LOC: LABWHC1 13:08 | DX: Z11.59 Encounter for screening for other viral diseases (principal) ==

== ENCOUNTER → 2020-02-10 | Outpatient (CLI) | payer MEDICAID, MEDICARE ==
[2020-02-10 08:11] LABS: Partial Thromboplastin Time 23.3 sec (22.0-30.0); Prothrombin Time 10.8 sec (9.0-12.0)
== END | disposition home or self-care (01) ==
LOC: LABWHC1 07:09
PROVIDERS: ATTEND Internal Medicine Nephrology
DX: Z94.0 Kidney transplant status (principal); Z79.01 Long term (current) use of anticoagulants
CPT/HCPCS: 36415; 85610; 85730; 86832; 86833

== ENCOUNTER → 2020-03-23 | Outpatient (CLI) | payer MEDICAID, MEDICARE ==
[2020-03-23 07:57] LABS: Appearance,Urine Clear (Clear); Bilirubin,Urine Negative (Negative); Blood,Urine Negative (Negative); Color,Urine Light Yellow; Glucose,Urine (UA) Negative (Negative); Ketones,Urine Negative (Negative); Leukocyte Esterase,Urine Negative (Negative); Nitrite,Urine Negative (Negative); Protein,Urine Negative (Negative); Specific Gravity,Urine 1.009 (1.001-1.035); Urobilinogen,Urine <2.0 mg/dL (<2.0)
[2020-03-23 10:43] LABS: % Iron Saturation 31.92 (15.00-50.00); African American GFR (CKD) 50.7 (60.0-200.0); Albumin 3.9 g/dL (3.80-4.90); Anion Gap 7.1 mmol/L (4.00-12.00); BUN/Creat Ratio 12.63 Ratio (12.00-20.00); Calcium 7.7 mg/dL (8.7-10.3); Carbon Dioxide 23.9 mmol/L (21.6-31.8); Globulin 1.3 g/dL (1.6-3.3); Magnesium 1.4 mg/dL (1.5-2.4); Non-African American GFR(CKD) 43.7 (60.0-200.0); Phosphorus 4.7 mg/dL (2.4-5.1); Total Bilirubin 0.3 mg/dL (0.2-1.2); Total Protein 5.2 g/dL (6.2-8.2); Uric Acid 4.2 mg/dL (3.7-8.7)
[2020-03-23 11:31] LABS: Ferritin 1158.8 ng/mL (22.0-322.0)
== END | disposition home or self-care (01) ==
LOC: LABWHC1 07:01
PROVIDERS: ATTEND Internal Medicine
DX: E55.9 Vitamin D deficiency, unspecified (principal); D64.9 Anemia, unspecified; N39.0 Urinary tract infection, site not specified; N25.81 Secondary hyperparathyroidism of renal origin; M10.9 Gout, unspecified; Z94.0 Kidney transplant status
CPT/HCPCS: 36415; 80053; 80197; 81003; 82306; 82728; 83540; 83550; 83735; 83970; 84100; 84550

== ENCOUNTER → 2020-04-06 | Outpatient (CLI) | payer MEDICAID, MEDICARE ==
[2020-04-06 11:03] LABS: African American GFR (CKD) 47.7 (60.0-200.0); Albumin 4.2 g/dL (3.80-4.90); Albumin/Globulin Ratio 2.33 (1.60-3.17); Anion Gap 6.2 mmol/L (4.00-12.00); Carbon Dioxide 20.8 mmol/L (21.6-31.8); Globulin 1.8 g/dL (1.6-3.3); Non-African American GFR(CKD) 41.1 (60.0-200.0); Potassium 4.9 mmol/L (3.5-5.5); Total Bilirubin 0.2 mg/dL (0.2-1.2)
== END | disposition home or self-care (01) ==
LOC: LABWHC1 07:07
PROVIDERS: ATTEND Nurse Practitioner Family
DX: Z94.0 Kidney transplant status (principal)
CPT/HCPCS: 36415; 80053

== ENCOUNTER → 2020-06-15 | Outpatient (CLI) | payer MEDICAID, MEDICARE | END | disposition home or self-care (01) | LOC: LABWHC1 07:05 | PROVIDERS: ATTEND Nurse Practitioner Family | DX: N39.0 Urinary tract infection, site not specified (principal); D64.9 Anemia, unspecified; N25.81 Secondary hyperparathyroidism of renal origin; E55.9 Vitamin D deficiency, unspecified; M10.9 Gout, unspecified; Z94.0 Kidney transplant status | CPT/HCPCS: 36415; 82306; 83970; 84550 ==

== ENCOUNTER → 2020-07-27 | Outpatient (CLI) | payer MEDICAID, MEDICARE | END | disposition home or self-care (01) | LOC: LABWHC1 07:20 | PROVIDERS: ATTEND Internal Medicine Nephrology | DX: Z94.0 Kidney transplant status (principal); Z79.01 Long term (current) use of anticoagulants | CPT/HCPCS: 36415 ==

== ENCOUNTER → 2020-08-14 | Outpatient (CLI) | payer MEDICAID, MEDICARE | END | disposition home or self-care (01) | LOC: LABWHC1 11:00 | PROVIDERS: ATTEND Radiology Diagnostic Radiology | DX: Z20.822 Contact with and (suspected) exposure to COVID-19 (principal) | CPT/HCPCS: U0003; C9803 ==

== ENCOUNTER → 2020-08-17 | Outpatient (CLI) | payer MEDICAID, MEDICARE ==
[2020-08-17 08:12] LABS: Appearance,Urine Clear (Clear); Bilirubin,Urine Negative (Negative); Blood,Urine Negative (Negative); Color,Urine Light Yellow; Glucose,Urine (UA) Negative (Negative); Ketones,Urine Negative (Negative); Leukocyte Esterase,Urine Negative (Negative); Nitrite,Urine Negative (Negative); PH, Urine 5.5 (5.0-8.0); Protein,Urine Trace (Negative); Specific Gravity,Urine 1.017 (1.001-1.035); Urobilinogen,Urine <2.0 mg/dL (<2.0)
[2020-08-17 11:08] LABS: Basophils # (A) 0.06 X 10*3/uL (0.00-0.10); Basophils % (A) 0.6 %; Eosinophils # (A) 0.08 X 10*3/uL (0.04-0.35); Eosinophils % (A) 0.8 %; HCT 41.4 % (39.6-50.0); Lymphocytes # (A) 2.23 X 10*3/uL (0.90-5.00); Lymphocytes % (A) 21.9 %; MCH 31.4 pg (27.0-32.0); MCHC 31.4 g/dL (32.0-37.0); Mean Platelet Volume 9.9 fL (9.5-12.2); Monocytes # (A) 0.85 X 10*3/uL (0.20-1.00); Monocytes % (A) 8.3 %; Neutrophils # (A) 6.88 X 10*3/uL (1.80-7.70); Neutrophils % (A) 67.4 %; Platelet Count 265 X 10*3/uL (140-440); RBC 4.14 X 10*6/uL (4.40-5.60); RDW 13.9 % (11.5-14.5)
[2020-08-17 11:31] LABS: African American GFR (CKD) 54.1 (60.0-200.0); Anion Gap 5.6 mmol/L (4.00-12.00); BUN/Creat Ratio 17.22 Ratio (12.00-20.00); Carbon Dioxide 23.4 mmol/L (21.6-31.8); Magnesium 1.8 mg/dL (1.5-2.4); Non-African American GFR(CKD) 46.7 (60.0-200.0); Phosphorus 3.9 mg/dL (2.4-5.1); Potassium 4.5 mmol/L (3.5-5.5)
[2020-08-17 15:50] LABS: INR 0.96 (0.90-1.11); Partial Thromboplastin Time 24.3 sec (23.5-31.0); Prothrombin Time 10.5 sec (9.9-11.9)
[2020-08-18 13:40] LABS: BK Virus DNA PCR, Qualitative Not detected (Not detected); BKV DNA (PCR), Quant <125 Copies/mL (<125); LOG BKV Copies/mL <2.10 (<2.10)
== END | disposition home or self-care (01) ==
LOC: LABWHC1 06:58
PROVIDERS: ATTEND Internal Medicine Nephrology
DX: Z48.22 Encounter for aftercare following kidney transplant (principal); Z94.0 Kidney transplant status; Z79.01 Long term (current) use of anticoagulants
CPT/HCPCS: 36415; 80048; 80197; 81003; 83735; 84100; 85025; 85610; 85730

== ENCOUNTER → 2020-09-14 | Outpatient (CLI) | payer MEDICAID, MEDICARE ==
[2020-09-14 10:44] LABS: Basophils # (A) 0.03 X 10*3/uL (0.00-0.10); Basophils % (A) 0.3 %; Eosinophils # (A) 0.04 X 10*3/uL (0.04-0.35); Eosinophils % (A) 0.4 %; HCT 41.6 % (39.6-50.0); HGB 13.2 g/dL (13.0-17.0); Lymphocytes # (A) 2.27 X 10*3/uL (0.90-5.00); Lymphocytes % (A) 21.1 %; MCH 31.7 pg (27.0-32.0); MCHC 31.7 g/dL (32.0-37.0); Mean Platelet Volume 9.7 fL (9.5-12.2); Monocytes # (A) 0.72 X 10*3/uL (0.20-1.00); Monocytes % (A) 6.7 %; Neutrophils # (A) 7.55 X 10*3/uL (1.80-7.70); Platelet Count 252 X 10*3/uL (140-440); RBC 4.16 X 10*6/uL (4.40-5.60); RDW 13.9 % (11.5-14.5); WBC 10.77 X 10*3/uL (4.50-10.00)
== END | disposition home or self-care (01) ==
LOC: LABWHC1 06:58
PROVIDERS: ATTEND Internal Medicine Nephrology
DX: Z94.0 Kidney transplant status (principal)
CPT/HCPCS: 36415; 85025

== ENCOUNTER → 2020-11-02 | Outpatient (CLI) | payer MEDICAID, MEDICARE ==
[2020-11-02 11:43] LABS: Chol/HDL Ratio 3.58; LDL Cholesterol,Calculated 148.2 mg/dL (0.0-131.0); VLDL Calculation 29.8 mg/dL (5.00-40.00)
[2020-11-02 11:45] LABS: Uric Acid 5.3 mg/dL (3.7-8.7)
[2020-11-02 14:35] LABS: Hemoglobin A1C 5.6 % (4.0-6.0)
== END | disposition home or self-care (01) ==
LOC: LABWHC1 07:04
PROVIDERS: ATTEND Internal Medicine Nephrology
DX: E11.22 Type 2 diabetes mellitus with diabetic chronic kidney disease (principal); E55.9 Vitamin D deficiency, unspecified; D63.1 Anemia in chronic kidney disease; N18.9 Chronic kidney disease, unspecified; Z94.0 Kidney transplant status
CPT/HCPCS: 36415; 80061; 82306; 83036; 84550

== ENCOUNTER → 2020-12-03 | Outpatient (CLI) | payer MEDICAID, MEDICARE | END | disposition home or self-care (01) | LOC: LABWHC1 07:04 | PROVIDERS: ATTEND Internal Medicine | DX: Z48.22 Encounter for aftercare following kidney transplant (principal); Z94.0 Kidney transplant status | CPT/HCPCS: 36415 ==

== ENCOUNTER → 2021-01-20 | Outpatient (CLI) | payer MEDICAID, MEDICARE ==
[2021-01-20 08:37] LABS: Appearance,Urine Clear (Clear); Bilirubin,Urine Negative (Negative); Blood,Urine Negative (Negative); Color,Urine Light Yellow; Glucose,Urine (UA) Negative (Negative); Ketones,Urine Negative (Negative); Leukocyte Esterase,Urine Negative (Negative); Nitrite,Urine Negative (Negative); Protein,Urine Negative (Negative); Specific Gravity,Urine 1.017 (1.001-1.035); Urobilinogen,Urine <2.0 mg/dL (<2.0)
[2021-01-20 09:28] LABS: Protein/Creatinine Ratio,Urine 0.152
[2021-01-20 13:41] LABS: Basophils # (A) 0.06 X 10*3/uL (0.00-0.10); Basophils % (A) 0.5 %; Eosinophils # (A) 0.08 X 10*3/uL (0.04-0.35); Eosinophils % (A) 0.7 %; HCT 44.9 % (39.6-50.0); HGB 13.9 g/dL (13.0-17.0); Lymphocytes # (A) 2.34 X 10*3/uL (0.90-5.00); Lymphocytes % (A) 20.6 %; MCH 31.2 pg (27.0-32.0); MCV 100.9 fL (80.0-97.0); Mean Platelet Volume 9.8 fL (9.5-12.2); Monocytes # (A) 0.89 X 10*3/uL (0.20-1.00); Monocytes % (A) 7.8 %; Neutrophils # (A) 7.85 X 10*3/uL (1.80-7.70); Neutrophils % (A) 69.1 %; Platelet Count 295 X 10*3/uL (140-440); RBC 4.45 X 10*6/uL (4.40-5.60); RDW 13.2 % (11.5-14.5); WBC 11.37 X 10*3/uL (4.50-10.00)
[2021-01-20 18:31] LABS: Urine Creatinine 91.4 mg/dL
[2021-01-20 21:05] LABS: % Iron Saturation 43.66 (15.00-50.00); African American GFR (CKD) 54.1 (60.0-200.0); Albumin 4.3 g/dL (3.80-4.90); Albumin/Globulin Ratio 2.26 (1.60-3.17); Anion Gap 10.5 mmol/L (4.00-12.00); BUN/Creat Ratio 17.22 Ratio (12.00-20.00); Calcium 9.3 mg/dL (8.7-10.3); Carbon Dioxide 22.5 mmol/L (21.6-31.8); Globulin 1.9 g/dL (1.6-3.3); Magnesium 1.9 mg/dL (1.5-2.4); Non-African American GFR(CKD) 46.7 (60.0-200.0); Potassium 4.7 mmol/L (3.5-5.5); Total Bilirubin 0.3 mg/dL (0.3-1.2); Total Protein 6.2 g/dL (6.2-8.2); Uric Acid 5.3 mg/dL (3.7-8.7)
[2021-01-20 21:44] LABS: Ferritin 777.8 ng/mL (22.0-322.0)
== END | disposition home or self-care (01) ==
LOC: LABWHC1 07:03
PROVIDERS: ATTEND Internal Medicine
DX: D64.9 Anemia, unspecified (principal); N39.0 Urinary tract infection, site not specified; N25.81 Secondary hyperparathyroidism of renal origin; E55.9 Vitamin D deficiency, unspecified; M10.9 Gout, unspecified; Z94.0 Kidney transplant status
CPT/HCPCS: 36415; 80053; 80197; 81003; 82043; 82306; 82570; 82728; 83540; 83550; 83735; 83970; 84100; 84156; 84550; 85025

== ENCOUNTER → 2021-06-14 | Outpatient (CLI) | payer MEDICAID, MEDICARE ==
[2021-06-15 11:44] LABS: African American GFR (CKD) 48.5 (60.0-200.0); Albumin 4.8 g/dL (3.8-4.9); Albumin/Globulin Ratio 2.43 (1.60-3.17); Anion Gap 21.8 mmol/L (10.00-18.00); BUN/Creat Ratio 15.31 Ratio (12.00-20.00); Calcium 9.9 mg/dL (8.7-10.3); Carbon Dioxide 12.6 mmol/L (20.0-27.5); Non-African American GFR(CKD) 41.8 (60.0-200.0); Potassium 4.9 mmol/L (3.5-5.5); Total Bilirubin 0.4 mg/dL (0.30-1.20); Total Protein 6.7 g/dL (6.2-8.2)
== END | disposition home or self-care (01) ==
LOC: LABWHC1 12:36
PROVIDERS: ATTEND Nurse Practitioner Family
DX: Z94.0 Kidney transplant status (principal)
CPT/HCPCS: 36415; 80053

== ENCOUNTER → 2021-06-23 | Outpatient (CLI) | payer MEDICAID, MEDICARE ==
[2021-06-23 19:16] LABS: African American GFR (CKD) 57.6 (60.0-200.0); Albumin 4.3 g/dL (3.8-4.9); Albumin/Globulin Ratio 2.53 (1.60-3.17); Anion Gap 14.2 mmol/L (10.00-18.00); BUN/Creat Ratio 15.18 Ratio (12.00-20.00); Blood Urea Nitrogen 25.8 mg/dL (9.0-27.0); Calcium 9.2 mg/dL (8.7-10.3); Carbon Dioxide 18.8 mmol/L (20.0-27.5); Globulin 1.7 g/dL (1.6-3.3); Non-African American GFR(CKD) 49.7 (60.0-200.0); Potassium 4.8 mmol/L (3.5-5.5); Total Bilirubin 0.3 mg/dL (0.30-1.20)
== END | disposition home or self-care (01) ==
LOC: LABWHC1 13:16
PROVIDERS: ATTEND Nurse Practitioner Family
DX: Z94.0 Kidney transplant status (principal)
CPT/HCPCS: 36415; 80053

== ENCOUNTER → 2021-07-28 | Outpatient (CLI) | payer MEDICAID, MEDICARE ==
[~2021-07-28] MED LIST changes: -DEXAMETHASONE SOD PHOSPHATE 10 MG/ML 1 ML VIAL IV ONE; -HYDROmorphone 0.5 MG/0.5 ML SYRINGE IVP PRN; -MIDAZOLAM (PF) 2 MG/2 ML VIAL IV PRN; -ONDANSETRON 4 MG/2 ML VIAL IVP ONE; +SODIUM CHLORIDE 0.9% 50 ML IVPB NR; +SODIUM CHLORIDE 0.9% 500 ML 500 ML in EMPTY BAG 1 BAG IV PRN; +SOTROVIMAB (EUA) 500 MG in SODIUM CHLORIDE 0.9% 100 ML IVPB NR; -ceFAZolin IN SWFI 2 GM/20 ML SYRINGE IVP ONE
[2021-07-28 14:17] VITALS: TEMP 98.4
[2021-07-28 14:59] VITALS: BP 115/68; PULSE 100; RESP 16
== END ==
LOC: PROCWHC3 13:48
PROVIDERS: ATTEND Internal Medicine Geriatric Medicine
DX: U07.1 COVID-19 (principal); N18.9 Chronic kidney disease, unspecified; Z94.0 Kidney transplant status; Z88.0 Allergy status to penicillin
CPT/HCPCS: 96360; Q0247; M0247

== ENCOUNTER → 2021-11-01 | Outpatient (CLI) | payer MEDICAID, MEDICARE ==
--- NOTE | 2021-11-01 12:55 | XR ---
EXAMINATION TYPE: XR chest 2V DATE OF EXAM: 11/01/2021 COMPARISON: 07/26/2018 HISTORY: Chest pain TECHNIQUE: 2 views of the chest are submitted FINDINGS: Pulmonary venous congestion with mild interstitial edema suggested. Correlate clinically. Infiltrates of other etiology not excluded. The cardiac silhouette size is within normal limits. The osseous structures are intact. IMPRESSION: 1. Pulmonary venous congestion with mild interstitial edema suggested. Correlate clinically. Infiltr ates of other etiology not excluded.
== END | disposition home or self-care (01) ==
LOC: RADXRMAIN 12:19
PROVIDERS: ATTEND Internal Medicine Geriatric Medicine
DX: R07.9 Chest pain, unspecified (principal)
CPT/HCPCS: 71046

== ENCOUNTER → 2021-11-30 | Outpatient (CLI) | payer MEDICAID, MEDICARE | END | disposition home or self-care (01) | LOC: LABWHC1 07:10 | PROVIDERS: ATTEND Nurse Practitioner Family | DX: Z94.0 Kidney transplant status (principal) | CPT/HCPCS: 36415; 80197 ==

== ENCOUNTER → 2021-12-06 | Outpatient (CLI) | payer MEDICAID, MEDICARE ==
[2021-12-06 11:00] LABS: HCT 43.2 % (39.6-50.0); HGB 13.2 g/dL (13.0-17.0); MCH 29.6 pg (27.0-32.0); MCHC 30.6 g/dL (32.0-37.0); MCV 96.9 fL (80.0-97.0); Mean Platelet Volume 9.4 fL (9.5-12.2); NRBC Per 100 WBC 0 /100 WBCS (0.0-0.0); Platelet Count 326 X 10*3/uL (140-440); RBC 4.46 X 10*6/uL (4.40-5.60); RDW 14.3 % (11.5-14.5); WBC 12.07 X 10*3/uL (4.50-10.00)
[2021-12-06 11:05] LABS: Appearance,Urine Clear (Clear); Bilirubin,Urine Negative (Negative); Blood,Urine Negative (Negative); Color,Urine Yellow (Yellow); Ketones,Urine Negative (Negative); Nitrite,Urine Negative (Negative); Specific Gravity,Urine 1.016 (1.001-1.030); Urobilinogen,Urine 0.2 (0.2,1.0)
[2021-12-06 11:21] LABS: % Iron Saturation 39.47 (15.00-50.00); African American GFR (CKD) 53.7 (60.0-200.0); Albumin 4.2 g/dL (3.8-4.9); Albumin/Globulin Ratio 1.75 (1.60-3.17); Anion Gap 12.6 mmol/L (10.00-18.00); BUN/Creat Ratio 18.39 Ratio (12.00-20.00); Blood Urea Nitrogen 33.1 mg/dL (9.0-27.0); Calcium 9.6 mg/dL (8.7-10.3); Carbon Dioxide 21.4 mmol/L (20.0-27.5); Globulin 2.4 g/dL (1.6-3.3); Magnesium 2.1 mg/dL (1.5-2.4); Non-African American GFR(CKD) 46.4 (60.0-200.0); Phosphorus 2.5 mg/dL (2.4-5.1); Total Bilirubin 0.3 mg/dL (0.30-1.20); Total Protein 6.6 g/dL (6.2-8.2); Uric Acid 5.5 mg/dL (3.7-8.7)
== END | disposition home or self-care (01) ==
LOC: LABWHC1 07:00
PROVIDERS: ATTEND Nurse Practitioner Family
DX: Z94.0 Kidney transplant status (principal); D64.9 Anemia, unspecified; N39.0 Urinary tract infection, site not specified; E21.3 Hyperparathyroidism, unspecified; E55.9 Vitamin D deficiency, unspecified; M10.9 Gout, unspecified
CPT/HCPCS: 36415; 80053; 80197; 81003; 82043; 82306; 82570; 82728; 83540; 83550; 83735; 83970; 84100; 84550; 85027

== ENCOUNTER → 2021-12-10 | Outpatient (CLI) | payer MEDICAID, MEDICARE ==
[2021-12-10 16:49] LABS: Appearance,Urine Clear (Clear); Bilirubin,Urine Negative (Negative); Blood,Urine Negative (Negative); Color,Urine Yellow (Yellow); Ketones,Urine Negative (Negative); Nitrite,Urine Negative (Negative); Specific Gravity,Urine 1.018 (1.001-1.030); Urobilinogen,Urine 0.2 (0.2,1.0)
[2021-12-10 20:29] LABS: Urine Creatinine 95.7 mg/dL (39.0-259.0)
== END | disposition home or self-care (01) ==
LOC: LABWHC1 07:02
PROVIDERS: ATTEND Nurse Practitioner Family
DX: N39.0 Urinary tract infection, site not specified (principal); Z94.0 Kidney transplant status
CPT/HCPCS: 36415; 80197; 81003; 82043; 82570

== ENCOUNTER → 2022-03-03 | Outpatient (CLI) | payer MEDICARE, MEDICAID ==
--- NOTE | 2022-03-03 09:02 | US ---
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 RLQ transplant kidney in 08/2019. P atient states he still has both [place] kidneys but are small EXAM PERFORMED: Grayscale on squaxin kidneys and Doppler duplex and Grayscale imaging of the transplan [place] kidney. EXAM MEASUREMENTS: [place] Right Kidney: 6.9 x 3.7 x 2.8 [place] Left Kidney: 5.8 x 3.5 x 3.5 Transplant Kidney: 11.6 x 4.5 x 4.3 Location of transplanted kidney: RLQ ANATOMY: [place] Right Kidney: Appears small and hyperechoic, limited visualization [place] Left Kidney: Appears small and hyperechoic, limited visualization Transplant Kidney: No prominent masses or lesions seen Bladder: distended, anechoic Bilateral Jets not seen Small atrophic [place] bilateral kidneys redemonstrated. Urinary bladder adequately distended. Right l ower quadrant renal transplant remains normal in size. Cortical medullary differentiation maintained. No hydronephrosis or concerning renal masses. Color images show satisfactory arterial flow at the hi lum. IMPRESSION: Persistent normal-sized right transplant kidney without hydronephrosis
== END | disposition home or self-care (01) ==
LOC: RADUSWWP 06:46
PROVIDERS: ATTEND Internal Medicine Nephrology
DX: Z79.899 Other long term (current) drug therapy (principal); Z94.0 Kidney transplant status
CPT/HCPCS: 76776

== ENCOUNTER → 2022-04-12 | Outpatient (CLI) | payer MEDICARE, MEDICAID ==
[2022-04-12 08:22] LABS: Appearance,Urine Clear (Clear); Bilirubin,Urine Negative (Negative); Blood,Urine Negative (Negative); Color,Urine Colorless; Glucose,Urine (UA) Negative (Negative); Ketones,Urine Negative (Negative); Leukocyte Esterase,Urine Negative (Negative); Nitrite,Urine Negative (Negative); Protein,Urine Trace (Negative); Specific Gravity,Urine 1.011 (1.001-1.035); Urobilinogen,Urine <2.0 mg/dL (<2.0)
[2022-04-12 10:25] LABS: Basophils # (A) 0.07 X 10*3/uL (0.00-0.10); Basophils % (A) 0.6 %; Eosinophils # (A) 0.06 X 10*3/uL (0.04-0.35); Eosinophils % (A) 0.5 %; HCT 46.8 % (39.6-50.0); HGB 15.2 g/dL (13.0-17.0); Immature Grans, Automated 1.3 %; Lymphocytes # (A) 2.84 X 10*3/uL (0.90-5.00); Lymphocytes % (A) 22.9 %; MCH 31.2 pg (27.0-32.0); MCHC 32.5 g/dL (32.0-37.0); MCV 96.1 fL (80.0-97.0); Mean Platelet Volume 9.8 fL (9.5-12.2); Monocytes # (A) 1.02 X 10*3/uL (0.20-1.00); Monocytes % (A) 8.2 %; NRBC Per 100 WBC 0 /100 WBCS (0.0-0.0); Neutrophils # (A) 8.26 X 10*3/uL (1.80-7.70); Neutrophils % (A) 66.5 %; Platelet Count 283 X 10*3/uL (140-440); RBC 4.87 X 10*6/uL (4.40-5.60); RDW 13.2 % (11.5-14.5); WBC 12.41 X 10*3/uL (4.50-10.00)
[2022-04-12 10:44] LABS: ALT 18 U/L (10-49); AST 14 U/L (14-35); African American GFR (CKD) 57.2 (60.0-200.0); Albumin 4.2 g/dL (3.8-4.9); Albumin/Globulin Ratio 2.33 (1.60-3.17); Alkaline Phosphatase 59 U/L (41-126); BUN/Creat Ratio 14.65 Ratio (12.00-20.00); Bilirubin, Conjugated <0.20 mg/dL (0.20-0.40); Blood Urea Nitrogen 24.9 mg/dL (9.0-27.0); Calcium 9.5 mg/dL (8.7-10.3); Carbon Dioxide 27.4 mmol/L (20.0-27.5); Chloride 102 mmol/L (96-109); Globulin 1.8 g/dL (1.6-3.3); Glucose 88 mg/dL (70-110); Magnesium 1.8 mg/dL (1.5-2.4); Non-African American GFR(CKD) 49.3 (60.0-200.0); Phosphorus 2.5 mg/dL (2.4-5.1); Potassium 4.9 mmol/L (3.5-5.5); Sodium 138 mmol/L (135-145); Uric Acid 5.5 mg/dL (3.7-8.7)
[2022-04-12 10:52] LABS: Creatinine,Urine Random 51.3 mg/dL (39.0-259.0); Total Protein,Urine Random 20.3 mg/dL (0.0-13.5); Urine Creatinine 51.8 mg/dL (39.0-259.0)
[2022-04-12 11:41] LABS: % Iron Saturation 57.65 (15.00-50.00); Chol/HDL Ratio 4.05 Ratio; Iron 159 ug/dL (65-175); LDL Cholesterol,Calculated 161.3 mg/dL (0.0-131.0); Total Iron Binding Capacity 276 ug/dL (228-460)
[2022-04-13 14:24] LABS: BK Virus DNA PCR, Qualitative Not detected (Not detected); BKV DNA (PCR), Quant <125 Copies/mL (<125); LOG BKV Copies/mL <2.10 (<2.10)
[2022-04-13 14:35] LABS: Tacrolimus (FK506) 7.2 ng/mL (5.0-20.0)
== END | disposition home or self-care (01) ==
LOC: LABWHC1 06:56
PROVIDERS: ATTEND Internal Medicine Nephrology
DX: E11.22 Type 2 diabetes mellitus with diabetic chronic kidney disease (principal); E55.9 Vitamin D deficiency, unspecified; D63.1 Anemia in chronic kidney disease; N39.0 Urinary tract infection, site not specified; N18.9 Chronic kidney disease, unspecified; Z94.0 Kidney transplant status
CPT/HCPCS: 36415; 80048; 80061; 80076; 80197; 81003; 82043; 82306; 82570; 82728; 83036; 83540; 83550; 83735; 83970; 84100; 84156; 84550; 85025

== ENCOUNTER → 2022-09-22 | Outpatient (CLI) | payer MEDICAID ==
[2022-09-22 19:19] LABS: African American GFR (CKD) 58.4 (60.0-200.0); Anion Gap 12.8 mmol/L (10.00-18.00); BUN/Creat Ratio 17.31 Ratio (12.00-20.00); Blood Urea Nitrogen 28.9 mg/dL (9.0-27.0); Calcium 9.5 mg/dL (8.7-10.3); Carbon Dioxide 21.9 mmol/L (20.0-27.5); Non-African American GFR(CKD) 50.4 (60.0-200.0); Potassium 5.2 mmol/L (3.5-5.5)
== END | disposition home or self-care (01) ==
LOC: LABWHC1 13:27
PROVIDERS: ATTEND Internal Medicine
DX: Z94.0 Kidney transplant status (principal)
CPT/HCPCS: 36415; 80048

== ENCOUNTER → 2022-11-24 | Outpatient (CLI) | payer MEDICAID ==
[2022-11-24 15:43] LABS: Anion Gap 11.1 mmol/L (10.00-18.00); BUN/Creat Ratio 16.61 Ratio (12.00-20.00); Blood Urea Nitrogen 27.9 mg/dL (9.0-27.0); Calcium 9.3 mg/dL (8.7-10.3); Carbon Dioxide 21.9 mmol/L (20.0-27.5); Non-African American GFR(CKD) 50.1 (60.0-200.0); Potassium 4.4 mmol/L (3.5-5.5)
== END | disposition home or self-care (01) ==
LOC: LABWHC1 06:54
PROVIDERS: ATTEND Internal Medicine Nephrology
DX: E11.22 Type 2 diabetes mellitus with diabetic chronic kidney disease (principal); N18.9 Chronic kidney disease, unspecified; D63.1 Anemia in chronic kidney disease; Z94.0 Kidney transplant status
CPT/HCPCS: 36415; 80048

== ENCOUNTER → 2022-12-12 | Outpatient (CLI) | payer MEDICAID ==
[2022-12-12 11:04] LABS: Basophils # (A) 0.09 X 10*3/uL (0.00-0.10); Basophils % (A) 0.8 %; Eosinophils # (A) 0.08 X 10*3/uL (0.04-0.35); Eosinophils % (A) 0.7 %; HCT 39.7 % (39.6-50.0); HGB 12.2 d/dL (12.0-15.0); Lymphocytes # (A) 3.15 X 10*3/uL (0.90-5.00); Lymphocytes % (A) 28.4 %; MCH 30.7 pg (27.0-32.0); MCHC 30.7 d/dL (32.0-37.0); Mean Platelet Volume 9.4 FL (9.5-12.2); Monocytes # (A) 0.97 X 10*3/uL (0.20-1.00); Monocytes % (A) 8.7 %; NRBC Per 100 WBC 0 X 10*3/uL (0.00-0.01); Neutrophils # (A) 6.59 X 10*3/uL (1.80-7.70); Neutrophils % (A) 59.3 %; Platelet Count 304 X 10*3/uL (140-440); RBC 3.97 X 10*6/uL (4.40-5.60); RDW 13.8 % (11.5-14.5); WBC 11.11 X 10*3/uL (4.50-10.00)
[2022-12-12 11:22] LABS: Appearance,Urine Clear (Clear); Bilirubin,Urine Negative (Negative); Blood,Urine Negative (Negative); Color,Urine Yellow (Yellow); Ketones,Urine Negative (Negative); Nitrite,Urine Negative (Negative); Specific Gravity,Urine 1.018 (1.001-1.030); Urobilinogen,Urine 0.2 E.U./DL
[2022-12-12 11:26] LABS: % Iron Saturation 49.82 (15.00-50.00); ALT 14 U/L (10-49); AST 12 U/L (14-35); Albumin 4.2 d/dL (3.8-4.9); Albumin/Globulin Ratio 2.47 Ratio (1.60-3.17); Alkaline Phosphatase 54 U/L (41-126); BUN/Creat Ratio 17.63 Ratio (12.00-20.00); Blood Urea Nitrogen 33.5 mg/dL (9.0-27.0); Calcium 9.5 mg/dL (8.7-10.3); Carbon Dioxide 21.3 mmol/L (21.6-31.8); Chloride 107 mmol/L (96-109); Globulin 1.7 d/dL (1.6-3.3); Glucose 93 mg/dL (70-110); Iron 139 UG/DL (65-175); Magnesium 1.9 mg/dL (1.5-2.4); Phosphorus 2.6 mg/dL (2.4-5.1); Potassium 4.8 mmol/L (3.5-5.5); Sodium 137 mmol/L (135-145); Total Bilirubin 0.4 mg/dL (0.3-1.2); Total Iron Binding Capacity 279 UG/DL (228-460); Total Protein 5.9 d/dL (6.2-8.2); Uric Acid 5.6 mg/dL (3.7-8.7)
== END | disposition home or self-care (01) ==
LOC: LABWHC1 07:00
PROVIDERS: ATTEND Internal Medicine
DX: E55.9 Vitamin D deficiency, unspecified (principal); N39.0 Urinary tract infection, site not specified; D64.9 Anemia, unspecified; N25.81 Secondary hyperparathyroidism of renal origin; M10.9 Gout, unspecified; R80.9 Proteinuria, unspecified; Z94.0 Kidney transplant status
CPT/HCPCS: 36415; 80053; 80197; 81003; 82043; 82306; 82570; 82728; 83540; 83550; 83735; 83970; 84100; 84550; 85025

== ENCOUNTER → 2023-02-13 | Outpatient (CLI) | payer SELFPAY | END | disposition home or self-care (01) | LOC: LABWHC1 06:44 | PROVIDERS: ATTEND Internal Medicine | DX: Z53.9 Procedure and treatment not carried out, unspecified reason (principal) ==

== ENCOUNTER → 2023-03-16 | Outpatient (CLI) | payer MEDICAID ==
[2023-03-16 10:56] LABS: HCT 40.2 % (39.6-50.0); HGB 12.9 d/dL (13.0-17.0); MCH 31.3 pg (27.0-32.0); MCHC 32.1 d/dL (32.0-37.0); MCV 97.6 FL (80.0-97.0); Mean Platelet Volume 9.3 FL (9.5-12.2); NRBC Per 100 WBC 0 X 10*3/uL (0.00-0.01); Platelet Count 281 X 10*3/uL (140-440); RBC 4.12 X 10*6/uL (4.40-5.60); RDW 13.4 % (11.5-14.5); WBC 13.58 X 10*3/uL (4.50-10.00)
[2023-03-16 11:23] LABS: Appearance,Urine Clear (Clear); Bilirubin,Urine Negative (Negative); Blood,Urine Negative (Negative); Color,Urine Yellow (Yellow); Ketones,Urine Negative (Negative); Nitrite,Urine Negative (Negative); Specific Gravity,Urine 1.019 (1.001-1.030); Urobilinogen,Urine 0.2 E.U./DL
[2023-03-16 11:27] LABS: % Iron Saturation 35.29 (15.00-50.00); ALT 15 U/L (10-49); AST 12 U/L (14-35); Albumin 4.2 d/dL (3.8-4.9); Albumin/Globulin Ratio 2.62 Ratio (1.60-3.17); Alkaline Phosphatase 52 U/L (41-126); BUN/Creat Ratio 16.88 Ratio (12.00-20.00); Blood Urea Nitrogen 28.7 mg/dL (9.0-27.0); Calcium 9.4 mg/dL (8.7-10.3); Carbon Dioxide 22.1 mmol/L (21.6-31.8); Chloride 109 mmol/L (96-109); Globulin 1.6 d/dL (1.6-3.3); Glucose 89 mg/dL (70-110); Iron 90 UG/DL (65-175); Magnesium 2.1 mg/dL (1.5-2.4); Potassium 4.4 mmol/L (3.5-5.5); Sodium 141 mmol/L (135-145); Total Bilirubin 0.4 mg/dL (0.3-1.2); Total Iron Binding Capacity 255 UG/DL (228-460); Total Protein 5.8 d/dL (6.2-8.2); Uric Acid 5.6 mg/dL (3.7-8.7)
== END | disposition home or self-care (01) ==
LOC: LABWHC1 06:52
PROVIDERS: ATTEND Internal Medicine Nephrology
DX: N25.81 Secondary hyperparathyroidism of renal origin (principal); Z94.0 Kidney transplant status; D64.9 Anemia, unspecified; N39.0 Urinary tract infection, site not specified; E55.9 Vitamin D deficiency, unspecified; M10.9 Gout, unspecified; R80.9 Proteinuria, unspecified
CPT/HCPCS: 36415; 80053; 80197; 81003; 82043; 82306; 82570; 82728; 83540; 83550; 83735; 83970; 84100; 84550; 85027

== ENCOUNTER → 2023-06-08 | Outpatient (CLI) | payer MEDICAID ==
--- NOTE | 2023-06-08 15:00 | US ---
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 EXAM MEASUREMENTS: [place] Right Kidney: 6.1x4.0x4.0 [place] Left Kidney: 6.8x3.8x3.8 Transplant Kidney: 12.6x5.0x6.3 Location of transplanted kidney: RLQ ANATOMY: [place] Right Kidney: atrophic, thinning cortex [place] Left Kidney: atrophic, thinning cortex Transplant Kidney: no hydro or masses noted, elevated arterial velocity Bladder: wnl Bilateral Jets seen: no examination of [place] kidneys limited due to bowel and atrophic size IMPRESSION: Markedly atrophic [place] kidneys. Transplant kidney demonstrates elevated arterial velocity without h ydronephrosis or mass.
== END | disposition home or self-care (01) ==
LOC: RADUSWWP 14:05
PROVIDERS: ATTEND Internal Medicine Nephrology
DX: N26.1 Atrophy of kidney (terminal) (principal); Z94.0 Kidney transplant status; Z79.899 Other long term (current) drug therapy
CPT/HCPCS: 76776

== ENCOUNTER → 2023-08-21 | Outpatient (CLI) | payer MEDICAID ==
[2023-08-21 09:07] LABS: Appearance,Urine Clear (Clear); Bilirubin,Urine Negative (Negative); Blood,Urine Negative (Negative); Color,Urine Colorless; Glucose,Urine (UA) Negative (Negative); Ketones,Urine Negative (Negative); Leukocyte Esterase,Urine Negative (Negative); Nitrite,Urine Negative (Negative); Protein,Urine Negative (Negative); Specific Gravity,Urine 1.016 (1.001-1.035); Urobilinogen,Urine <2.0 mg/dL (<2.0)
[2023-08-21 10:58] LABS: Basophils # (A) 0.05 X 10*3/uL (0.00-0.10); Basophils % (A) 0.4 %; Eosinophils # (A) 0.02 X 10*3/uL (0.04-0.35); Eosinophils % (A) 0.2 %; HCT 37.8 % (39.6-50.0); HGB 11.8 g/dL (13.0-17.0); Lymphocytes # (A) 2.46 X 10*3/uL (0.90-5.00); Lymphocytes % (A) 20.4 %; MCHC 31.2 g/dL (32.0-37.0); MCV 99.2 FL (80.0-97.0); Mean Platelet Volume 9.5 FL (9.5-12.2); Monocytes # (A) 1.23 X 10*3/uL (0.20-1.00); Monocytes % (A) 10.2 %; NRBC Per 100 WBC 0 X 10*3/uL (0.00-0.01); Neutrophils # (A) 8.15 X 10*3/uL (1.80-7.70); Neutrophils % (A) 67.4 %; Platelet Count 466 X 10*3/uL (140-440); RBC 3.81 X 10*6/uL (4.40-5.60); RDW 13.3 % (11.5-14.5); WBC 12.08 X 10*3/uL (4.50-10.00)
[2023-08-21 11:25] LABS: ALT 27 U/L (10-49); AST 11 U/L (14-35); Albumin 4.1 g/dL (3.8-4.9); Albumin/Globulin Ratio 2.16 Ratio (1.60-3.17); Alkaline Phosphatase 77 U/L (41-126); Bilirubin, Conjugated <0.20 mg/dL (0.20-0.40); Bilirubin,Unconjugated >0.10 mg/dL (0.20-1.00); Blood Urea Nitrogen 29.6 mg/dL (9.0-27.0); Calcium 9.7 mg/dL (8.7-10.3); Carbon Dioxide 21.9 mmol/L (21.6-31.8); Chloride 108 mmol/L (96-109); Chol/HDL Ratio 4.58 Ratio; Globulin 1.9 g/dL (1.6-3.3); Glucose 85 mg/dL (70-110); Iron 153 UG/DL (65-175); LDL Cholesterol,Calculated 122.8 mg/dL (0.0-131.0); Magnesium 1.8 mg/dL (1.5-2.4); Phosphorus 2.7 mg/dL (2.4-5.1); Potassium 4.5 mmol/L (3.5-5.5); Sodium 143 mmol/L (135-145); Total Bilirubin 0.3 mg/dL (0.3-1.2); Total Iron Binding Capacity 244 UG/DL (228-460); Uric Acid 5.7 mg/dL (3.7-8.7)
== END | disposition home or self-care (01) ==
LOC: LABWHC1 06:50
PROVIDERS: ATTEND Nurse Practitioner Family
DX: E11.22 Type 2 diabetes mellitus with diabetic chronic kidney disease (principal); E55.9 Vitamin D deficiency, unspecified; N18.9 Chronic kidney disease, unspecified; N39.0 Urinary tract infection, site not specified; N25.81 Secondary hyperparathyroidism of renal origin; M10.9 Gout, unspecified; D63.1 Anemia in chronic kidney disease; R80.9 Proteinuria, unspecified; Z94.0 Kidney transplant status
CPT/HCPCS: 36415; 80053; 80061; 80197; 81003; 82043; 82248; 82306; 82570; 82728; 83036; 83540; 83550; 83735; 83970; 84100; 84156; 84550; 85025

== ENCOUNTER → 2023-12-21 | Outpatient (CLI) | payer MEDICAID ==
[2023-12-21 19:16] LABS: BUN/Creat Ratio 23.56 Ratio (12.00-20.00); Blood Urea Nitrogen 42.4 mg/dL (9.0-27.0); Calcium 9.1 mg/dL (8.7-10.3); Carbon Dioxide 14.7 mmol/L (21.6-31.8); Chloride 112 mmol/L (96-109); Glucose 135 mg/dL (70-110); Potassium 5.2 mmol/L (3.5-5.5); Sodium 138 mmol/L (135-145)
== END | disposition home or self-care (01) ==
LOC: LABWHC1 13:22
PROVIDERS: ATTEND Internal Medicine
DX: N18.32 Chronic kidney disease, stage 3b (principal)
CPT/HCPCS: 36415; 80048

== ENCOUNTER → 2023-12-25 | Outpatient (CLI) | payer MEDICAID ==
[2023-12-25 12:24] LABS: BUN/Creat Ratio 22.58 Ratio (12.00-20.00); Blood Urea Nitrogen 42.9 mg/dL (9.0-27.0); Carbon Dioxide 17.3 mmol/L (21.6-31.8); Chloride 111 mmol/L (96-109); Glucose 84 mg/dL (70-110); Potassium 4.2 mmol/L (3.5-5.5); Sodium 141 mmol/L (135-145)
== END | disposition home or self-care (01) ==
LOC: LABWHC1 07:04
PROVIDERS: ATTEND Internal Medicine
DX: N18.32 Chronic kidney disease, stage 3b (principal)
CPT/HCPCS: 36415; 80048

== ENCOUNTER → 2024-01-01 | Outpatient (CLI) | payer MEDICAID ==
[2024-01-01 10:33] LABS: Basophils # (A) 0.04 X 10*3/uL (0.00-0.10); Basophils % (A) 0.5 %; Eosinophils # (A) 0.06 X 10*3/uL (0.04-0.35); Eosinophils % (A) 0.7 %; HCT 38.6 % (39.6-50.0); Lymphocytes # (A) 2.47 X 10*3/uL (0.90-5.00); Lymphocytes % (A) 27.9 %; MCH 30.9 pg (27.0-32.0); MCHC 31.1 g/dL (32.0-37.0); MCV 99.5 FL (80.0-97.0); Mean Platelet Volume 10.4 FL (9.5-12.2); Monocytes # (A) 1.05 X 10*3/uL (0.20-1.00); Monocytes % (A) 11.9 %; NRBC Per 100 WBC 0 X 10*3/uL (0.00-0.01); Neutrophils % (A) 56.5 %; Platelet Count 237 X 10*3/uL (140-440); RBC 3.88 X 10*6/uL (4.40-5.60); WBC 8.84 X 10*3/uL (4.50-10.00)
[2024-01-01 10:53] LABS: % Iron Saturation 43.77 (15.00-50.00); Iron 116 UG/DL (65-175); Magnesium 1.8 mg/dL (1.5-2.4); Phosphorus 2.2 mg/dL (2.4-5.1); Total Iron Binding Capacity 265 UG/DL (228-460); Uric Acid 5.6 mg/dL (3.7-8.7)
[2024-01-01 10:54] LABS: ALT 19 U/L (10-49); AST 11 U/L (14-35); Albumin 4.3 g/dL (3.8-4.9); Albumin/Globulin Ratio 2.53 Ratio (1.60-3.17); Alkaline Phosphatase 75 U/L (41-126); BUN/Creat Ratio 17.81 Ratio (12.00-20.00); Blood Urea Nitrogen 28.5 mg/dL (9.0-27.0); Calcium 9.4 mg/dL (8.7-10.3); Carbon Dioxide 22.9 mmol/L (21.6-31.8); Chloride 107 mmol/L (96-109); Globulin 1.7 g/dL (1.6-3.3); Glucose 89 mg/dL (70-110); Potassium 4.4 mmol/L (3.5-5.5); Sodium 141 mmol/L (135-145); Total Bilirubin 0.3 mg/dL (0.3-1.2)
== END | disposition home or self-care (01) ==
LOC: LABWHC1 06:50
PROVIDERS: ATTEND Internal Medicine
DX: E55.9 Vitamin D deficiency, unspecified (principal); N39.0 Urinary tract infection, site not specified; N25.81 Secondary hyperparathyroidism of renal origin; M10.9 Gout, unspecified; N18.32 Chronic kidney disease, stage 3b; D63.1 Anemia in chronic kidney disease; R80.9 Proteinuria, unspecified
CPT/HCPCS: 36415; 80053; 80197; 82043; 82306; 82570; 82728; 83540; 83550; 83735; 83970; 84100; 84550; 85025

== ENCOUNTER → 2024-05-09 | Outpatient (CLI) | payer MEDICAID, MEDICARE ==
[2024-05-09 08:25] LABS: Appearance,Urine Clear (Clear); Bilirubin,Urine Negative (Negative); Blood,Urine Negative (Negative); Color,Urine Colorless; Glucose,Urine (UA) Negative (Negative); Ketones,Urine Negative (Negative); Leukocyte Esterase,Urine Negative (Negative); Nitrite,Urine Negative (Negative); Protein,Urine Negative (Negative); Specific Gravity,Urine 1.013 (1.001-1.035); Urobilinogen,Urine <2.0 mg/dL (<2.0)
[2024-05-09 09:28] LABS: Creatinine,Urine Random 76.4 mg/dL; Protein/Creatinine Ratio,Urine 0.183
[2024-05-09 10:17] LABS: Basophils # (A) 0.04 X 10*3/uL (0.00-0.10); Basophils % (A) 0.5 %; Eosinophils # (A) 0.05 X 10*3/uL (0.04-0.35); Eosinophils % (A) 0.6 %; HCT 38.4 % (39.6-50.0); HGB 12.2 g/dL (13.0-17.0); Lymphocytes # (A) 2.19 X 10*3/uL (0.90-5.00); Lymphocytes % (A) 27.7 %; MCH 30.7 pg (27.0-32.0); MCHC 31.8 g/dL (32.0-37.0); MCV 96.5 FL (80.0-97.0); Mean Platelet Volume 9.1 FL (9.5-12.2); Monocytes # (A) 0.95 X 10*3/uL (0.20-1.00); NRBC Per 100 WBC 0 X 10*3/uL (0.00-0.01); Neutrophils # (A) 4.59 X 10*3/uL (1.80-7.70); Neutrophils % (A) 58.1 %; Platelet Count 309 X 10*3/uL (140-440); RBC 3.98 X 10*6/uL (4.40-5.60); RDW 13.8 % (11.5-14.5); WBC 7.91 X 10*3/uL (4.50-10.00)
[2024-05-09 10:36] LABS: % Iron Saturation 46.52 (15.00-50.00); ALT 15 U/L (10-49); AST 13 U/L (14-35); Albumin 4.2 g/dL (3.8-4.9); Alkaline Phosphatase 54 U/L (41-126); Blood Urea Nitrogen 29.6 mg/dL (9.0-27.0); Calcium 9.2 mg/dL (8.7-10.3); Carbon Dioxide 20.6 mmol/L (21.6-31.8); Chloride 107 mmol/L (96-109); Chol/HDL Ratio 3.98 Ratio; Globulin 1.5 g/dL (1.6-3.3); Glucose 93 mg/dL (70-110); Iron 127 UG/DL (65-175); LDL Cholesterol,Calculated 161.2 mg/dL (0.0-131.0); Magnesium 1.9 mg/dL (1.5-2.4); Phosphorus 2.5 mg/dL (2.4-5.1); Potassium 5.1 mmol/L (3.5-5.5); Prostate Specific Antigen 0.36 ng/mL (0.000-2.500); Sodium 138 mmol/L (135-145); Total Bilirubin 0.4 mg/dL (0.3-1.2); Total Iron Binding Capacity 273 UG/DL (228-460); Total Protein 5.7 g/dL (6.2-8.2); Uric Acid 5.5 mg/dL (3.7-8.7)
[2024-05-09 10:37] LABS: Bilirubin, Conjugated <0.20 mg/dL (0.20-0.40); Bilirubin,Unconjugated >0.20 mg/dL (0.20-1.00)
[2024-05-09 23:14] LABS: Total Protein,Urine Random 10.4 mg/dL (0.0-13.5)
== END | disposition home or self-care (01) ==
LOC: LABWHC1 06:52
PROVIDERS: ATTEND Internal Medicine Geriatric Medicine
DX: I13.10 Hypertensive heart and chronic kidney disease without heart failure, with stage 1 through stage 4 chronic kidney disease, or unspecified chronic kidney disease (principal); N18.31 Chronic kidney disease, stage 3a; R73.9 Hyperglycemia, unspecified; E78.5 Hyperlipidemia, unspecified; N40.1 Benign prostatic hyperplasia with lower urinary tract symptoms; E21.3 Hyperparathyroidism, unspecified
CPT/HCPCS: 36415; 80053; 80061; 80197; 81003; 82248; 82570; 82728; 83036; 83540; 83550; 83735; 84100; 84153; 84156; 84443; 84550; 85025

== ENCOUNTER → 2024-05-23 | Outpatient (CLI) | payer MEDICAID | END | disposition home or self-care (01) | LOC: LABWHC1 06:51 | PROVIDERS: ATTEND Internal Medicine Nephrology | DX: N18.32 Chronic kidney disease, stage 3b (principal) | CPT/HCPCS: 36415; 80197 ==

== ENCOUNTER → 2024-08-23 | Outpatient (CLI) | payer MEDICAID ==
[2024-08-23 08:25] LABS: ALT 18 U/L (4-49); AST 18 U/L (17-59); African American GFR (CKD) 60 (>60 ml/min/1.73 sqM); Albumin 3.7 g/dL (3.5-5.0); Albumin/Globulin Ratio 1.7; Alkaline Phosphatase 65 U/L (38-126); Anion Gap 8 mmol/L; Blood Urea Nitrogen 37 mg/dL (9-20); Calcium 9.3 mg/dL (8.4-10.2); Carbon Dioxide 22 mmol/L (22-30); Chloride 107 mmol/L (98-107); Globulin 2.2 g/dL; Glucose 86 mg/dL (74-99); Magnesium 1.8 mg/dL (1.6-2.3); Non-African American GFR(CKD) 52 (>60 ml/min/1.73 sqM); Phosphorus 3.4 mg/dL (2.5-4.5); Potassium 5.4 mmol/L (3.5-5.1); Sodium 137 mmol/L (137-145); Total Bilirubin 0.5 mg/dL (0.2-1.3); Total Protein 5.9 g/dL (6.3-8.2)
[2024-08-23 08:50] LABS: Basophils % (A) 1 %; Eosinophils # (A) 0.1 k/uL (0-0.7); Eosinophils % (A) 2 %; HCT 37.9 % (39.0-53.0); HGB 11.8 gm/dL (13.0-17.5); Hypochromasia Slight; Lymphocytes # (A) 1.7 k/uL (1.0-4.8); Lymphocytes % (A) 37 %; MCH 30.7 pg (25.0-35.0); MCV 98.7 fL (80.0-100.0); Mean Platelet Volume 7.4; Monocytes # (A) 0.6 k/uL (0-1.0); Monocytes % (A) 12 %; Neutrophils # (A) 2.1 k/uL (1.3-7.7); Neutrophils % (A) 45 %; Platelet Count 289 k/uL (150-450); RBC 3.84 m/uL (4.30-5.90); RDW 13.4 % (11.5-15.5); WBC 4.7 k/uL (3.8-10.6)
[2024-08-23 09:06] LABS: Appearance,Urine Clear (Clear); Bilirubin,Urine Negative (Negative); Blood,Urine Negative (Negative); Color,Urine Colorless; Glucose,Urine (UA) Negative (Negative); Ketones,Urine Negative (Negative); Leukocyte Esterase,Urine Negative (Negative); Nitrite,Urine Negative (Negative); PH, Urine 5.5 (5.0-8.0); Protein,Urine Negative (Negative); Specific Gravity,Urine 1.018 (1.001-1.035); Urobilinogen,Urine <2.0 mg/dL (<2.0)
[2024-08-23 11:22] LABS: % Iron Saturation 46.81 (15.00-50.00); Chol/HDL Ratio 4.16 Ratio; Iron 110 UG/DL (65-175); LDL Cholesterol,Calculated 141.4 mg/dL (0.0-131.0); Total Iron Binding Capacity 235 UG/DL (228-460)
[2024-08-23 22:33] LABS: Creatinine,Urine Random 76.6 mg/dL; Protein/Creatinine Ratio,Urine 0.131
== END | disposition home or self-care (01) ==
LOC: LABWHC1 06:49
PROVIDERS: ATTEND Internal Medicine Nephrology
DX: E11.22 Type 2 diabetes mellitus with diabetic chronic kidney disease (principal); N18.9 Chronic kidney disease, unspecified; D63.1 Anemia in chronic kidney disease; E55.9 Vitamin D deficiency, unspecified; Z94.0 Kidney transplant status
CPT/HCPCS: 36415; 80053; 80061; 80197; 81003; 82043; 82306; 82570; 82728; 83036; 83540; 83550; 83735; 83970; 84100; 84156; 84550; 85025

== ENCOUNTER → 2024-09-27 | Outpatient (CLI) | payer MEDICAID ==
[2024-09-27 10:30] LABS: MCH 30.5 pg (27.0-32.0); MCHC 31.6 g/dL (32.0-37.0); MCV 96.7 FL (80.0-97.0); Mean Platelet Volume 9.8 FL (9.5-12.2); NRBC Per 100 WBC 0 X 10*3/uL (0.00-0.01); Platelet Count 227 X 10*3/uL (140-440); RBC 3.93 X 10*6/uL (4.40-5.60); RDW 13.7 % (11.5-14.5)
[2024-09-27 15:59] LABS: % Iron Saturation 44.26 (15.00-50.00); ALT 21 U/L (10-49); AST 17 U/L (14-35); Albumin/Globulin Ratio 2.11 Ratio (1.60-3.17); Alkaline Phosphatase 74 U/L (41-126); BUN/Creat Ratio 18.19 Ratio (12.00-20.00); Blood Urea Nitrogen 29.1 mg/dL (9.0-27.0); Calcium 9.2 mg/dL (8.7-10.3); Carbon Dioxide 21.3 mmol/L (21.6-31.8); Chloride 108 mmol/L (96-109); Globulin 1.9 g/dL (1.6-3.3); Glucose 85 mg/dL (70-110); Iron 108 UG/DL (65-175); Magnesium 1.8 mg/dL (1.5-2.4); Phosphorus 1.8 mg/dL (2.4-5.1); Potassium 5.1 mmol/L (3.5-5.5); Sodium 139 mmol/L (135-145); Total Bilirubin 0.2 mg/dL (0.3-1.2); Total Iron Binding Capacity 244 UG/DL (228-460); Total Protein 5.9 g/dL (6.2-8.2); Uric Acid 5.7 mg/dL (3.7-8.7)
[2024-09-27 16:25] LABS: Appearance,Urine Clear (Clear); Bilirubin,Urine Negative (Negative); Blood,Urine Negative (Negative); Color,Urine Yellow (Yellow); Ketones,Urine Negative (Negative); Nitrite,Urine Negative (Negative); Specific Gravity,Urine 1.018 (1.001-1.030); Urobilinogen,Urine 0.2 E.U./DL
[2024-09-27 20:26] LABS: Urine Creatinine 99.8 mg/dL (39.0-259.0)
== END | disposition home or self-care (01) ==
LOC: LABWHC1 06:59
PROVIDERS: ATTEND Nurse Practitioner Family
DX: N18.32 Chronic kidney disease, stage 3b (principal)
CPT/HCPCS: 36415; 80053; 80197; 81003; 82043; 82306; 82570; 82728; 83540; 83550; 83735; 83970; 84100; 84550; 85027

== ENCOUNTER → 2024-12-31 | Outpatient (CLI) | payer MEDICAID ==
[2024-12-31 15:07] LABS: HCT 36.6 % (39.6-50.0); HGB 11.2 g/dL (13.0-17.0); MCH 30.4 pg (27.0-32.0); MCHC 30.6 g/dL (32.0-37.0); MCV 99.5 FL (80.0-97.0); NRBC Per 100 WBC 0 X 10*3/uL (0.00-0.01); Platelet Count 277 X 10*3/uL (140-440); RBC 3.68 X 10*6/uL (4.40-5.60); RDW 14.0 % (11.5-14.5); WBC 4.52 X 10*3/uL (4.50-10.00)
[2024-12-31 15:21] LABS: Bilirubin,Urine Negative (Negative); Blood,Urine Trace (Negative); Color,Urine Yellow (Yellow); Ketones,Urine Negative (Negative); Nitrite,Urine Negative (Negative); PH, Urine 6.5; Specific Gravity,Urine 1.015 (1.001-1.030); Urobilinogen,Urine 0.2 E.U./DL
[2024-12-31 15:27] LABS: Bacteria,Urine None Seen (None Seen)
[2024-12-31 15:34] LABS: ALT 21 U/L (10-49); AST 15 U/L (14-35); Albumin 3.9 g/dL (3.8-4.9); Albumin/Globulin Ratio 2.17 Ratio (1.60-3.17); Alkaline Phosphatase 73 U/L (41-126); Anion Gap 12.60 mmol/L (4.00-12.00); BUN/Creat Ratio 20.64 Ratio (12.00-20.00); Blood Urea Nitrogen 28.9 mg/dL (9.0-27.0); Calcium 8.9 mg/dL (8.7-10.3); Carbon Dioxide 24.4 mmol/L (21.6-31.8); Chloride 103 mmol/L (96-109); Ferritin 766.0 ng/mL (22.0-322.0); Globulin 1.8 g/dL (1.6-3.3); Glucose 87 mg/dL (70-110); Iron 57 UG/DL (65-175); Magnesium 1.5 mg/dL (1.5-2.4); Potassium 3.6 mmol/L (3.5-5.5); Sodium 140 mmol/L (135-145); Total Iron Binding Capacity 245 UG/DL (228-460); Total Protein 5.7 g/dL (6.2-8.2); Uric Acid 5.3 mg/dL (3.7-8.7)
== END | disposition home or self-care (01) ==
LOC: LABWHC1 07:11
PROVIDERS: ATTEND Internal Medicine
DX: N18.32 Chronic kidney disease, stage 3b (principal); D63.1 Anemia in chronic kidney disease; N39.0 Urinary tract infection, site not specified; R80.9 Proteinuria, unspecified; E55.9 Vitamin D deficiency, unspecified; N25.81 Secondary hyperparathyroidism of renal origin; M10.9 Gout, unspecified
CPT/HCPCS: 36415; 80053; 80197; 81001; 82043; 82306; 82570; 82728; 83540; 83550; 83735; 83970; 84100; 84550; 85027

== ENCOUNTER → 2025-01-17 | Outpatient (CLI) | payer MEDICAID | END | disposition home or self-care (01) | LOC: LABWHC1 07:01 | PROVIDERS: ATTEND Nurse Practitioner Family | DX: N18.32 Chronic kidney disease, stage 3b (principal) | CPT/HCPCS: 36415; 80197 ==